=== PATIENT | female | born 1945 | race Caucasian/White ===

== ENCOUNTER 2018-09-10 00:21 | Outpatient (CLI) | payer OTHER, SELFPAY ==
--- NOTE | 2018-09-10 14:00 | MERGE_ITS ---
*[facility]* *[facility]* [address] [place] [address] Date of study: 09/10/2018 Transthoracic Echocardiography M-mode, complete 2D, complete spectral Doppler, and color Doppler *STUDY CONCLUSIONS* Summary: 1. Left ventricle: The cavity size was normal. There was mild focal basal hypertrophy of the septum. Systolic function was hyperdynamic. The estimated ejection fraction was 65-70%. There was no dynamic obstruction. Wall motion was normal; there were no regional wall motion abnormalities. Findings consistent with diastolic dysfunction. 2. Mitral valve: There was mild regurgitation. 3. Left atrium: The atrium was moderately to severely dilated. 4. Right ventricle: The cavity size was normal. Wall thickness was normal. Systolic function was normal. 5. Atrial septum: A patent foramen ovale cannot be excluded. 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 6. Pulmonary arteries: Pulmonary systolic pressure was increased, in the range of 35mm Hg to 40mm Hg. *PATIENT PRESENTATION* Height: 154.9cm ((61in) ) S/D Pressure: 154 / 74 Weight: 56.7kg ((124.7lb) ) BSA: 1.57m^2 Test start time: 02:15 PM. Test stop time: 03:00 PM. PERFORMING Unknown PERFORMING [facility] ORDERING Shara Jimenez REFERRING Shara Jimenez AQUACULTURE PROGRAM DIRECTOR Tere Cornejo RT (R)(CT), [facility] *PROCEDURE DATA* Procedure information: The patient was identified by two identifiers. This study was interpreted by [facility]. Pertinent images and digital data are archived for permanent storage and are available for subsequent review. No prior study was available for comparison. Study status: Routine. Transthoracic echocardiography. M-mode, complete 2D, complete spectral Doppler, and color Doppler. A Transthoracic Echocardiogram was performed. Scanning was performed from the parasternal, apical, subcostal, and suprasternal notch acoustic windows. Images were obtained using an [id number] cardiac ultrasound machine. Image quality was adequate. Study completion: The patient tolerated the procedure well. There were no complications. History: PMH: Heart murmur. Mitral regurgitation. *CARDIAC ANATOMY* Left ventricle: The cavity size was normal. There was mild focal basal hypertrophy of the septum. Systolic function was hyperdynamic. The estimated ejection fraction was 65-70%. There was no dynamic obstruction. Wall motion was normal; there were no regional wall motion abnormalities. Findings consistent with diastolic dysfunction. Aortic valve: Trileaflet; mildly thickened leaflets. Mobility was not restricted. Doppler: Transvalvular velocity was within the normal range. There was no stenosis. There was no significant regurgitation. VTI ratio of LVOT to aortic valve: 0.74. Valve area (VTI): 2.4cm^2. Indexed valve area (VTI): 1.5cm^2/m^2. Peak velocity ratio of LVOT to aortic valve: 0.8. Valve area (Vmax): 2.6cm^2. Indexed valve area (Vmax): 1.7cm^2/m^2. Mean velocity ratio of LVOT to aortic valve: 0.81. Valve area (Vmean): 2.7cm^2. Indexed valve area (Vmean): 1.7cm^2/m^2. Mean gradient (S): 6.2mm Hg. Peak gradient (S): 14.4mm Hg. Aorta: Aortic root: The aortic root was normal in size. Ascending aorta: The ascending aorta was normal in size. Mitral valve: Mildly thickened leaflets. Mobility was not restricted. Doppler: Transvalvular velocity was within the normal range. There was no evidence for stenosis. There was mild regurgitation. Valve area by pressure half-time: 5cm^2. Indexed valve area by pressure half-time: 3.2cm^2/m^2. Peak gradient (D): 3.2mm Hg. Left atrium: The atrium was moderately to severely dilated. Atrial septum: A patent foramen ovale cannot be excluded. 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 Right ventricle: The cavity size was normal. Wall thickness was normal. Systolic function was normal. Pulmonic valve: Structurally normal valve. Doppler: Transvalvular velocity was within the normal range. There was no evidence for stenosis. There was trivial regurgitation. Peak gradient (S): 3.5mm Hg. Tricuspid valve: Structurally normal valve. Doppler: Transvalvular velocity was within the normal range. There was no evidence for stenosis. There was no significant regurgitation. Pulmonary artery: Pulmonary systolic pressure was increased, in the range of 35mm Hg to 40mm Hg. Right atrium: The atrium was normal in size. Pericardium: There was no pericardial effusion. Systemic veins: Inferior vena cava: Well visualized. The vessel was patent and normal in size. The respirophasic diameter changes were in the normal range (greater than or equal to 50%). Baseline ECG: Normal sinus rhythm. Measurements Left ventricle Value Reference LV ID, ED, PLAX 4.9 cm 3.5 - 6.0 LV ID, ES, PLAX 3.3 cm 2.1 - 4.0 LV PW thickness, ED, PLAX 1.0 cm LV end-diastolic volume, 1-p A2C 65 ml LV ejection fraction, 1-p A2C 73 % LV end-diastolic volume, 1-p A4C 88 ml LV ejection fraction, 1-p A4C 63 % LV e', lateral 0.058 m/sec LV E/e', lateral 15 LV e', medial 0.064 m/sec LV E/e', medial 14 LV e', average 0.061 m/sec LV E/e', average 15 Ventricular septum Value Reference IVS thickness, ED, PLAX 1.0 cm LVOT Value Reference LVOT ID, A-P 2.1 cm LVOT area 3.3 cm^2 LVOT peak velocity, S 1.52 m/sec LVOT mean velocity, S 0.96 m/sec LVOT VTI, S 28.7 cm LVOT peak gradient, S 9.2 mm Hg LVOT mean gradient, S 4.3 mm Hg Stroke volume (SV), LVOT DP 95 ml Stroke index (SV/bsa), LVOT DP 60 ml/m^2 Aortic valve Value Reference Aortic valve peak velocity, S 1.9 m/sec Aortic valve mean velocity, S 1.18 m/sec Aortic valve VTI, S 39.0 cm Aortic mean gradient, S 6.2 mm Hg Aortic peak gradient, S 14.4 mm Hg VTI ratio, LVOT/AV 0.74 Aortic valve area, VTI 2.4 cm^2 Velocity ratio, peak, LVOT/AV 0.8 Aortic valve area, peak velocity 2.6 cm^2 Velocity ratio, mean, LVOT/AV 0.81 Aortic valve area, mean velocity 2.7 cm^2 Aortic valve area/bsa, mean velocity 1.7 cm^2/m^2 Aorta Value Reference Aortic root ID, ED 3.2 cm Ascending aorta ID, A-P, S 2.9 cm Left atrium Value Reference LA ID, A-P, ES 4.5 cm LA ID/bsa, A-P (H) 2.8 cm/m^2 <=2.2 LA area, ES, A4C 22.3 cm^2 8.8 - 23.4 LA area, ES, A2C 19 cm^2 LA volume/bsa, ES, 1-p A4C 52 ml/m^2 LA volume, ES, 2-p 59 ml LA volume/bsa, ES, 2-p 37 ml/m^2 LA/aortic root ratio 1.38 Mitral valve Value Reference Mitral E-wave peak velocity 0.9 m/sec Mitral A-wave peak velocity 1.27 m/sec Mitral deceleration time 152 ms 150 - 230 Mitral pressure half-time 44 ms Mitral peak gradient, D 3.2 mm Hg Mitral E/A ratio, peak 0.71 Mitral valve area, PHT, DP 5 cm^2 Pulmonary veins Value Reference Pulmonary vein peak velocity, S 1.03 m/sec Pulmonary vein peak velocity, D 0.6 m/sec Pulmonary vein velocity ratio, peak, 1.73 S/D Pulmonary vein A-wave reversal peak 0.47 m/sec velocity Tricuspid valve Value Reference Tricuspid regurg peak velocity 3 m/sec Tricuspid peak RV-RA gradient 36.2 mm Hg Right atrium Value Reference RA area, ES, A4C 11.2 cm^2 8.3 - 19.5 Pulmonic valve Value Reference Pulmonic peak gradient, S 3.5 mm Hg Legend: (L) and (H) evette values outside specified reference range. I have personally reviewed the images and have reviewed and edited the reported findings. Electronically signed by Abhijeet Alexander 09/10/2018 16:07
== END 2018-09-10 00:41 ==
PROVIDERS: PCP Nurse Practitioner; Visit Provider Nurse Practitioner
DX: I34.0 Nonrheumatic mitral (valve) insufficiency (principal); R01.1 Cardiac murmur, unspecified; I50.30 Unspecified diastolic (congestive) heart failure; I51.7 Cardiomegaly
CPT/HCPCS: 93306

== ENCOUNTER 2018-09-12 13:49 | Outpatient (REF) | payer OTHER, SELFPAY ==
[2018-09-12 18:51] LABS: ALT 32 U/L (12-78); AST 25 U/L (15-37); Albumin 3.9 g/dL (3.4-5.0); Alkaline Phosphatase 86 U/L (46-116); Anion Gap 9.3 mmol/L (3-11); BUN 20 mg/dL (7-18); Bilirubin, Total 0.3 mg/dL (0.2-1.0); CO2 27.7 mmol/L (21.0-32.0); Calcium 8.9 mg/dL (8.5-10.1); Chloride 102 mmol/L (98-107); Glucose 89 mg/dL (70-100); Potassium 4.2 mmol/L (3.5-5.1); Sodium 139 mmol/L (136-145); TSH (W/Ref FT4) 3.34 uIU/mL (0.358-3.74); Total Protein 7.2 g/dL (6.4-8.2)
== END 2018-09-12 14:09 ==
LOC: NCHCN 13:49
PROVIDERS: PCP Nurse Practitioner; Visit Provider Nurse Practitioner
DX: R00.2 Palpitations (principal); I34.0 Nonrheumatic mitral (valve) insufficiency; E03.9 Hypothyroidism, unspecified; E04.2 Nontoxic multinodular goiter
CPT/HCPCS: 80053; 84443

== ENCOUNTER 2018-09-25 10:51 | Outpatient (CLI) | payer OTHER, SELFPAY ==
--- NOTE | 2018-09-25 10:47 | DI.RAD_ITS ---
SYMPTOMS/DIAGNOSIS: RT KNEE PAIN RIGHT KNEE: Lateral tibiofemoral joint space narrowing, articular sclerosis and periarticular hypertrophic spurring and chondrocalcinosis are demonstrated. The findings consistent with severe DJD.
== END 2018-09-25 11:11 ==
PROVIDERS: PCP Nurse Practitioner; Visit Provider Physician Assistant
DX: M25.561 Pain in right knee (principal); M17.11 Unilateral primary osteoarthritis, right knee; G20 Parkinson's disease
CPT/HCPCS: 20610; 73562; 99204; 99215; J1040

== ENCOUNTER → 2018-10-23 09:31 | Outpatient (BNVA) | payer OTHER, SELFPAY | PROVIDERS: PCP Nurse Practitioner; Visit Provider Psychiatry & Neurology Neurology | DX: G20 Parkinson's disease (principal) | CPT/HCPCS: 99215 ==

== ENCOUNTER → 2018-11-25 08:10 | Outpatient (BNVA) | payer OTHER, SELFPAY | PROVIDERS: PCP Nurse Practitioner; Visit Provider Psychiatry & Neurology Neurology | DX: G20 Parkinson's disease (principal) | CPT/HCPCS: 99213 ==

== ENCOUNTER → 2018-11-25 10:59 | Outpatient (BNVA) | payer OTHER, SELFPAY | PROVIDERS: PCP Nurse Practitioner; Referring Provider Nurse Practitioner; Visit Provider Student in an Organized Health Care Education/Training Program | DX: M17.11 Unilateral primary osteoarthritis, right knee (principal); G20 Parkinson's disease | CPT/HCPCS: 99212; 99213 ==

== ENCOUNTER 2019-01-08 16:38 | Outpatient (CLI) | payer OTHER, MEDICARE, SELFPAY ==
--- NOTE | 2019-01-08 14:50 | DI.RAD_ITS ---
SYMPTOMS/DIAGNOSIS: LUMBAR BACK PAIN, M54.5 LUMBOSACRAL SPINE: Multiple compression fractures involving the mid and lower dorsal spine are noted with vertebroplasties at T6, T7, T11 and T12. The lumbar vertebrae appear intact. There is disc space narrowing at L1-2, L3-4 and L4-L5. A vacuum phenomenon is noted at L4-5 and there is a 7 mm anterolisthesis of L4 and L5 associated with degenerative facet joint changes and consistent with a pseudospondylolisthesis. As visualized, the pedicles, spinous and transverse processes appear intact. Allowing for overlying bowel gas and fecal material, the sacrum and sacroiliac joints appear intact. SUMMARY: Multiple old compression fractures involving the mid and lower dorsal spine with vertebroplasties at T6, and T7, and T11 and T12. There is evidence of degenerative disc disease and DJD involving the lumbar spine as described above. No lumbar fracture is apparent.
== END 2019-01-08 16:58 ==
PROVIDERS: PCP Nurse Practitioner; Visit Provider Family Medicine
DX: M54.5 Low back pain (principal); M51.36 Other intervertebral disc degeneration, lumbar region; M43.17 Spondylolisthesis, lumbosacral region; Z98.1 Arthrodesis status
CPT/HCPCS: 72110

== ENCOUNTER 2019-01-24 08:30 | Emergency (ER) | payer OTHER, SELFPAY ==
[2019-01-24 08:30] VITALS: BP 167/92; PULSE 77; RESP 18; TEMP 36.8; O2SAT 96
[2019-01-24] MEDS: oxyCODONE 5 MG TAB PO (08:44)
--- NOTE | 2019-01-24 08:55 | W.ED.GENAD ---
Discharge Plan Disposition Patient Disposition: HOME Condition: Stable Discharge Details Chief Complaint: Nk/Back Pain Clinical Impression: Lower back pain, Compression fracture Primary Care Provider: Shara Jimenez ED Provider: Manuel Tang Home Meds and New Rx's Prescriptions: New oxycodone 5 mg tablet 5 mg PO Q6H Qty: 12 RF: 0 No Action acetaminophen 500 mg capsule 1,000 mg PO Q8H RF: 0 multivitamin tablet 1 tab PO DAILY RF: 0 furosemide 20 mg tablet 40 mg PO DAILY RF: 0 ibuprofen 600 mg tablet 600 mg PO TID RF: 0 oxybutynin chloride 5 mg tablet 5 mg PO BID RF: 0 calcium carbonate-vitamin D3 [Calcium 600 with Vitamin D3] 600 mg(1,500mg) -400 unit capsule 1 cap PO .BLAKE RF: 0 levothyroxine 25 mcg capsule 25 mcg PO DAILY RF: 0 carbidopa-levodopa [Sinemet] 25-100 mg tablet 1 tab PO TID Qty: 270 RF: 3 celecoxib [Celebrex] 100 mg Capsule 100 mg PO BID RF: 0 Discharge Instructions Instructions: Lower Back Exercises (ED) Additional Instructions: You should follow up with your primary care provider and the spine specialists, you should be contacted with an appointment if you have severe worsening pain or new pain such as abdominal pain return to the emergency department Medical Decision Making 74 yo female with hx of parkinson's, hypothyroidism, chronic lower back pain with prior surgeries all over a year ago, comes in with continued lower back pain. she localizes it to the sacrum and denies any falls, no abd pain, no fevesr, no findings to suggest infectious etiology such as sea or osteo. Had lumbar spine films recently showing djd and old compression fx's. Has no saddle anesthesia on exam or focal neuro deficits so doubt cauda equina. No recent falls so doubt fx. No abdominal pain and normal distal pulses so doubt aaa or dissection. Will tx her pain and reassess. pt stable, son and daughter in law in room now and state she has had intermittent numbness of the upper legs. Has no numbness on exam now, but given this complaint will obtain MRI to eval for possible cord compression MRI per Dr. Araujo shows djd, does have old compression fx's at t11/t12 with some fragments in the spinal canal, and l4/l5 central stenosis. The patient would like to go home as she feels she is more comfortable there. I will discuss case with spine and call pt and her family after this is done. She will return if worsening Differential Diagnosis djd, lumbar stenosis HPI General Mode of arrival: EMS. Date/Time Provider Initiated Documentation: 01/24/19 08:31. Limitations to Documentation: no limitations. Information obtained by: patient. History of Present Illness 74 year old F presents to the emergency department with the chief complaint of back pain, described as severe, Quality is described as aching, and is localized to the back. Patient reports no radiation. Patient started experiencing this month(s) (3) and it has been constant. No relieving factors improve symptom(s), Other factors that worsen symptoms (sitting up) . Patient did receive the following treatments prior to arrival, none Related Data Home Medications Medication Instructions Recorded Confirmed acetaminophen 500 mg capsule 1,000 mg PO Q8H cap 08/26/18 01/24/19 calcium carbonate-vitamin D3 600 1 cap PO .BLAKE cap 08/26/18 01/24/19 mg (1,500 mg)-400 unit capsule furosemide 20 mg tablet 40 mg PO DAILY tab 08/26/18 01/24/19 ibuprofen 600 mg tablet 600 mg PO TID 08/26/18 01/24/19 levothyroxine 25 mcg capsule 25 mcg PO DAILY 08/26/18 01/24/19 multivitamin tablet 1 tab PO DAILY 08/26/18 01/24/19 oxybutynin chloride 5 mg tablet 5 mg PO BID 08/26/18 01/24/19 carbidopa 25 mg-levodopa 100 mg 1 tab PO TID #270 tab 11/25/18 01/24/19 tablet celecoxib [Celebrex] 100 mg PO BID 01/24/19 01/24/19 oxycodone 5 mg PO Q6H #12 tab 01/24/19 Previous Rx's Medication Instructions Recorded carbidopa 25 mg-levodopa 100 mg 1 tab PO TID #270 tab 11/25/18 tablet oxycodone 5 mg PO Q6H #12 tab 01/24/19 Allergies Allergy/AdvReac Type Severity Reaction Status Date / Time omeprazole Allergy Intermediate Verified 01/24/19 08:37 General Stated Complaint: Nk/Back Pain ALVINA: 3 Review of Systems Review of Systems All systems reviewed & are unremarkable except as noted in HPI and below Constitutional Denies chills and Denies fever(s) Cardiovascular Denies chest pain and Denies dyspnea Respiratory Denies cough and Denies dyspnea Gastrointestinal Denies abdominal pain, Denies nausea and Denies vomiting Musculoskeletal Denies joint swelling Integumentary/Breasts Denies rash [facility] Medical History Parkinson disease (Chronic) Arthritis (Acute) Carpal tunnel syndrome (Acute) Heart murmur (Acute) Incontinence (Acute) Intermediate coronary syndrome (Acute) Knee pain, right (Acute) Kyphosis (Acute) Multinodular thyroid (Acute) Palpitations (Acute) Scoliosis (Acute) Hypothyroidism (Chronic) Mitral valve regurgitation (Chronic) Osteoporosis (Chronic) Parkinsons disease (Resolved) Surgical History H/O oophorectomy (Acute) S/P appendectomy (Acute) S/P eye surgery (Acute) S/P lumbar spine operation (Acute) H/O carpal tunnel repair (Chronic) Family History Brother Parkinson disease Maternal Uncle Parkinson disease Paternal Cousin Parkinson disease Other Diabetes Stroke Social History Smoking/Tobacco Use Status: Former Tobacco Use Alcohol Intake: current Alcohol Intake frequency: holidays/special occasions only Substance use type: does not use Household members: none Do you feel safe at home: Yes Do you feel safe in your relationship?: Yes Exam Const General: no acute distress Orientation: alert [facility] Head: normal to inspection Ears: external ears normal General nose exam: external nose normal Mouth: moist mucous membranes Eyes General: appearance normal, both eyes and all related structures Neck Neck: normal visual inspection Resp Effort & Inspection: normal respiratory effort and able to speak in complete sentences Cardio Rate: regular rate GI Palpation: soft Back/Spine/Pelvis Back: no CVA tenderness Skin General skin exam: no rashes or lesions noted Neuro General: alert and oriented x3 Extrem General: normal to inspection Psych Mental Status: mental status grossly normal Course Vital Signs Temperature 36.8 C 01/24/19 08:30 Pulse 77 01/24/19 08:30 Respiratory Rate 18 01/24/19 08:30 Blood Pressure 167/92 H 01/24/19 08:30 Pulse Oximetry 96 01/24/19 08:30 Temperature 36.8 C 01/24/19 08:30 Pulse 77 01/24/19 08:30 Respiratory Rate 18 01/24/19 08:30 Respiratory Effort Non-Labored 01/24/19 08:30 Blood Pressure 167/92 H 01/24/19 08:30 Pulse Oximetry 96 01/24/19 08:30 Oxygen Delivery Method Room Air 01/24/19 08:30 Oxygen Flow Rate 0 01/24/19 08:30 Pain Level 8 01/24/19 08:39
--- NOTE | 2019-01-24 08:58 | ED.GENADUL_ITS ---
Discharge Plan Disposition Patient Disposition: HOME Condition: Stable Discharge Details Chief Complaint: Nk/Back Pain Clinical Impression: Lower back pain, Compression fracture Primary Care Provider: Shara Jimenez ED Provider: Manuel Tang Home Meds and New Rx's Prescriptions: New oxycodone 5 mg tablet 5 mg PO Q6H Qty: 12 RF: 0 No Action acetaminophen 500 mg capsule 1,000 mg PO Q8H RF: 0 multivitamin tablet 1 tab PO DAILY RF: 0 furosemide 20 mg tablet 40 mg PO DAILY RF: 0 ibuprofen 600 mg tablet 600 mg PO TID RF: 0 oxybutynin chloride 5 mg tablet 5 mg PO BID RF: 0 calcium carbonate-vitamin D3 [Calcium 600 with Vitamin D3] 600 mg(1,500mg) - 400 unit capsule 1 cap PO .BLAKE RF: 0 levothyroxine 25 mcg capsule 25 mcg PO DAILY RF: 0 carbidopa-levodopa [Sinemet] 25-100 mg tablet 1 tab PO TID Qty: 270 RF: 3 celecoxib [Celebrex] 100 mg Capsule 100 mg PO BID RF: 0 Discharge Instructions Instructions: Lower Back Exercises (ED) Additional Instructions: You should follow up with your primary care provider and the spine specialists, you should be contacted with an appointment if you have severe worsening pain or new pain such as abdominal pain return to the emergency department Medical Decision Making 74 yo female with hx of parkinson's, hypothyroidism, chronic lower back pain with prior surgeries all over a year ago, comes in with continued lower back pain. she localizes it to the sacrum and denies any falls, no abd pain, no fevesr, no findings to suggest infectious etiology such as sea or osteo. Had lumbar spine films recently showing djd and old compression fx's. Has no saddle anesthesia on exam or focal neuro deficits so doubt cauda equina. No recent falls so doubt fx. No abdominal pain and normal distal pulses so doubt aaa or dissection. Will tx her pain and reassess. pt stable, son and daughter in law in room now and state she has had intermittent numbness of the upper legs. Has no numbness on exam now, but given this complaint will obtain MRI to eval for possible cord compression MRI per Dr. Araujo shows djd, does have old compression fx's at t11/t12 with some fragments in the spinal canal, and l4/l5 central stenosis. The patient would like to go home as she feels she is more comfortable there. I will discuss case with spine and call pt and her family after this is done. She will return if worsening Differential Diagnosis djd, lumbar stenosis HPI General Mode of arrival: EMS . Date/Time Provider Initiated Documentation: 01/24/19 08:31 . Limitations to Documentation: no limitations . Information obtained by: patient . History of Present Illness 74 year old F presents to the emergency department with the chief complaint of back pain, described as severe, Quality is described as aching, and is localized to the back. Patient reports no radiation. Patient started experiencing this month(s) (3) and it has been constant. No relieving factors improve symptom(s), Other factors that worsen symptoms (sitting up) . Patient did receive the following treatments prior to arrival, none Related Data Home Medications Medication Instructions Recorded Confirmed acetaminophen 500 mg capsule 1,000 mg PO Q8H cap 08/26/18 01/24/19 calcium carbonate-vitamin D3 600 1 cap PO .BLAKE cap 08/26/18 01/24/19 mg (1,500 mg)-400 unit capsule furosemide 20 mg tablet 40 mg PO DAILY tab 08/26/18 01/24/19 ibuprofen 600 mg tablet 600 mg PO TID 08/26/18 01/24/19 levothyroxine 25 mcg capsule 25 mcg PO DAILY 08/26/18 01/24/19 multivitamin tablet 1 tab PO DAILY 08/26/18 01/24/19 oxybutynin chloride 5 mg tablet 5 mg PO BID 08/26/18 01/24/19 carbidopa 25 mg-levodopa 100 mg 1 tab PO TID #270 tab 11/25/18 01/24/19 tablet celecoxib [Celebrex] 100 mg PO BID 01/24/19 01/24/19 oxycodone 5 mg PO Q6H #12 tab 01/24/19 Previous Rx's Medication Instructions Recorded carbidopa 25 mg-levodopa 100 mg 1 tab PO TID #270 tab 11/25/18 tablet oxycodone 5 mg PO Q6H #12 tab 01/24/19 Allergies Allergy/AdvReac Type Severity Reaction Status Date / Time omeprazole Allergy Intermediate Verified 01/24/19 08:37 General Stated Complaint: Nk/Back Pain ALVINA: 3 Review of Systems Review of Systems All systems reviewed & are unremarkable except as noted in HPI and below Constitutional Denies chills and Denies fever(s) Cardiovascular Denies chest pain and Denies dyspnea Respiratory Denies cough and Denies dyspnea Gastrointestinal Denies abdominal pain, Denies nausea and Denies vomiting Musculoskeletal Denies joint swelling Integumentary/Breasts Denies rash [facility] Medical History Parkinson disease (Chronic) Arthritis (Acute) Carpal tunnel syndrome (Acute) Heart murmur (Acute) Incontinence (Acute) Intermediate coronary syndrome (Acute) Knee pain, right (Acute) Kyphosis (Acute) Multinodular thyroid (Acute) Palpitations (Acute) Scoliosis (Acute) Hypothyroidism (Chronic) Mitral valve regurgitation (Chronic) Osteoporosis (Chronic) Parkinsons disease (Resolved) Surgical History H/O oophorectomy (Acute) S/P appendectomy (Acute) S/P eye surgery (Acute) S/P lumbar spine operation (Acute) H/O carpal tunnel repair (Chronic) Family History Brother Parkinson disease Maternal Uncle Parkinson disease Paternal Cousin Parkinson disease Other Diabetes Stroke Social History Smoking/Tobacco Use Status: Former Tobacco Use Alcohol Intake: current Alcohol Intake frequency: holidays/special occasions only Substance use type: does not use Household members: none Do you feel safe at home: Yes Do you feel safe in your relationship?: Yes Exam Const General: no acute distress Orientation: alert [facility] Head: normal to inspection Ears: external ears normal General nose exam: external nose normal Mouth: moist mucous membranes Eyes General: appearance normal, both eyes and all related structures Neck Neck: normal visual inspection Resp Effort & Inspection: normal respiratory effort and able to speak in complete sentences Cardio Rate: regular rate GI Palpation: soft Back/Spine/Pelvis Back: no CVA tenderness Skin General skin exam: no rashes or lesions noted Neuro General: alert and oriented x3 Extrem General: normal to inspection Psych Mental Status: mental status grossly normal Course Vital Signs Temperature 36.8 C 01/24/19 08:30 Pulse 77 01/24/19 08:30 Respiratory Rate 18 01/24/19 08:30 Blood Pressure 167/92 H 01/24/19 08:30 Pulse Oximetry 96 01/24/19 08:30 Temperature 36.8 C 01/24/19 08:30 Pulse 77 01/24/19 08:30 Respiratory Rate 18 01/24/19 08:30 Respiratory Effort Non-Labored 01/24/19 08:30 Blood Pressure 167/92 H 01/24/19 08:30 Pulse Oximetry 96 01/24/19 08:30 Oxygen Delivery Method Room Air 01/24/19 08:30 Oxygen Flow Rate 0 01/24/19 08:30 Pain Level 8 01/24/19 08:39
[2019-01-24 09:45] LABS: Bilirubin Negative (Negative); Blood Negative (Negative); Clarity Clear; Glucose Negative (Negative); Ketones Negative (Negative); Leukocyte Esterase Negative (Negative); Nitrite Negative (Negative); Urobilinogen 0.2 EU/dL (Up TO 0.2); pH 7.5 (5-8)
--- NOTE | 2019-01-24 12:12 | DI.MRI_ITS ---
SYMPTOMS/DIAGNOSIS: LOW BACK PAIN, NUMBNESS LUMBOSACRAL SPINE MRI: MRI examination of the lumbosacral spine was performed according to the usual protocol. There is an exaggerated lumbar lordosis. There are prominent hypertrophic degenerative changes most marked at L 5 - S 1. There is a mild anterior pseudospondylolisthesis of L 4 on L 5. T 12 vertebral body appears collapsed and deforms the spinal canal anteriorly without discrete compression of the conus. Prominence of superior endplate of T 11 also noted posteriorly and narrows AP diameter of the canal at this level again without significant compression of the conus. At L 5 - S 1 there is prominent disc bulge. No disc herniation or central canal spinal stenosis. At L 4 - 5 there is a moderate to severe central canal spinal stenosis secondary to disc bulge and facet hypertrophy. No significant findings at L 3 - 4. No significant findings at L 1 - 2 or L 2 - 3. No neural foraminal narrowing identified at the levels examined. CONCLUSION: 1. T 12 and T 11 compression fractures with significant deformity of the anterior contour of the spinal canal at these levels but without definite compression of the conus. Impingement of conus may be present at either or both of these levels. 2. Moderate to severe central canal spinal stenosis at L 4 - 5.
[2019-01-24 13:44] VITALS: BP 167/92; PULSE 77; RESP 18; TEMP 36.8; O2SAT 96
--- NOTE | 2019-01-24 16:19 | PDOC.ERCMPRO ---
Care Management Progress Note ROSE met with Christiana and her son to provide patient education and Dr. Tang to review discharge planning needs. Per discussion, recommended Christiana return home with RN/PT/OT/PRESSURE TEST OPERATOR. ROSE supported MD in completing forms and documentation and faxed to [facility]; speaking via phone with Jessica to inform of referral.
--- NOTE | 2019-01-24 16:26 | CMPROGNOTE_ITS ---
Care Management Progress Note ROSE met with Christiana and her son to provide patient education and Dr. Tang to review discharge planning needs. Per discussion, recommended Christiana return home with RN/PT/OT/[employer]. ROSE supported MD in completing forms and documentation and faxed to [facility]; speaking via phone with Jessica to inform of referral.
--- NOTE | 2019-01-26 07:35 | NUR.NOTE ---
Nursing Note: Referral faxed to [facility] for follow up. Silvina Kee.
== END 2019-01-24 13:55 | disposition home or self-care (01) ==
PROVIDERS: Emergency Provider Emergency Medicine; PCP Nurse Practitioner
DX: M54.5 Low back pain (principal); R20.2 Paresthesia of skin; G35 Multiple sclerosis; M48.061 Spinal stenosis, lumbar region without neurogenic claudication
CPT/HCPCS: 99284; 72148; 81003

== ENCOUNTER → 2019-02-20 11:27 | Outpatient (BNVA) | payer OTHER, SELFPAY | PROVIDERS: PCP Nurse Practitioner; Visit Provider Psychiatry & Neurology Neurology | DX: G20 Parkinson's disease (principal); R42 Dizziness and giddiness; R11.0 Nausea | CPT/HCPCS: 99213; 99214 ==

== ENCOUNTER 2019-03-27 00:45 | Outpatient (CLI) | payer OTHER, SELFPAY ==
--- NOTE | 2019-03-27 13:00 | DI.US_ITS ---
SYMPTOMS/DIAGNOSIS: VAGINAL SPOTTING, N93.9 PELVIC ULTRASOUND: A transabdominal and transvaginal examination was carried out. The uterus measures 6.1 cm in length, 2.3 cm in height and 3.9 cm in width with an endometrial stripe thickness of 1.3 mm. The right ovary was not seen. The left ovary measures 1.9 x 1 x 0.9 cm. There is no evidence of fluid in the cul-de-sac. The right kidney measures 9.7 cm, the left kidney 9.4 cm. An anterior cortical 2 x 1.9 x 1.8 cm left renal cyst is identified. SUMMARY: The examination is unremarkable with note made of nonvisualization of the right ovary.
== END 2019-03-27 01:05 ==
PROVIDERS: PCP Nurse Practitioner; Visit Provider Nurse Practitioner
DX: N93.9 Abnormal uterine and vaginal bleeding, unspecified (principal)
CPT/HCPCS: 76830; 76856

== ENCOUNTER → 2019-04-21 11:12 | Outpatient (BNVA) | payer OTHER, SELFPAY | PROVIDERS: PCP Nurse Practitioner; Visit Provider Psychiatry & Neurology Neurology | DX: G20 Parkinson's disease (principal); M41.9 Scoliosis, unspecified | CPT/HCPCS: 99214 ==

== ENCOUNTER → 2019-06-05 10:04 | Outpatient (BNVA) | payer OTHER, SELFPAY | PROVIDERS: PCP Nurse Practitioner; Visit Provider Psychiatry & Neurology Neurology | DX: G20 Parkinson's disease (principal); M41.9 Scoliosis, unspecified | CPT/HCPCS: 99214 ==

== ENCOUNTER 2019-06-18 13:15 | Outpatient (REF) | payer OTHER, SELFPAY ==
[2019-06-18 15:15] LABS: Creatinine,Urine 60.41 mg/dL
[2019-06-18 15:18] LABS: Creatinine,24hr Ur 0.79 g/24hr (0.60-1.80); Total Volume 1300 ml
[2019-06-19 08:27] LABS: Calcium Urine 10.3 mg/dl
== END 2019-06-18 13:35 ==
LOC: LBN 13:15
PROVIDERS: PCP Nurse Practitioner; Visit Provider Internal Medicine
DX: M81.0 Age-related osteoporosis without current pathological fracture (principal)
CPT/HCPCS: 82340; 82570

== ENCOUNTER → 2019-07-24 10:42 | Outpatient (BNVA) | payer OTHER, SELFPAY | PROVIDERS: PCP Nurse Practitioner; Referring Provider Nurse Practitioner; Visit Provider Psychiatry & Neurology Neurology | DX: G20 Parkinson's disease (principal); G25.81 Restless legs syndrome | CPT/HCPCS: 99214 ==

== ENCOUNTER → 2019-10-21 12:46 | Outpatient (BNVA) | payer OTHER, SELFPAY | PROVIDERS: PCP Nurse Practitioner; Referring Provider Nurse Practitioner; Visit Provider Psychiatry & Neurology Neurology | DX: G20 Parkinson's disease (principal); G25.81 Restless legs syndrome; M41.9 Scoliosis, unspecified; R20.9 Unspecified disturbances of skin sensation | CPT/HCPCS: 99214 ==

== ENCOUNTER → 2020-01-15 13:19 | Outpatient (BNVA) | payer OTHER, SELFPAY | PROVIDERS: PCP Nurse Practitioner; Referring Provider Nurse Practitioner; Visit Provider Psychiatry & Neurology Neurology | DX: G20 Parkinson's disease (principal); M41.9 Scoliosis, unspecified; G25.81 Restless legs syndrome; R13.10 Dysphagia, unspecified | CPT/HCPCS: 99214 ==

== ENCOUNTER → 2020-04-26 09:49 | Outpatient (BNVA) | payer OTHER, SELFPAY | PROVIDERS: PCP Nurse Practitioner; Referring Provider Nurse Practitioner; Visit Provider Psychiatry & Neurology Neurology | DX: G20 Parkinson's disease (principal); M41.9 Scoliosis, unspecified; G25.81 Restless legs syndrome; R13.10 Dysphagia, unspecified; F43.23 Adjustment disorder with mixed anxiety and depressed mood | CPT/HCPCS: 99214 ==

== ENCOUNTER 2020-05-07 02:20 | Outpatient (CLI) | payer OTHER, SELFPAY ==
[2020-05-07 13:16] LABS: HCT 38.1 % (36.0-46.0); HGB 12.5 g/dL (11.2-15.7); MCH 28.4 pg (27.0-33.0); MCHC 32.8 % (32.0-36.0); MCV 86.6 fL (80-95); MPV 9.5 fL (8.0-11.0); Platelet Count 368 10^3/uL (130-400); RDW 12.6 % (11.7-14.6); WBC 10.72 10^3/uL (4.4-10.8)
[2020-05-07 14:57] LABS: ALT 12 U/L (14-59); AST 19 U/L (15-37); Albumin 4.1 g/dL (3.4-5.0); Alkaline Phosphatase 85 U/L (46-116); BUN 12 mg/dL (7-18); Bilirubin, Total 0.4 mg/dL (0.2-1.0); CREATININE 0.75 mg/dL (0.55-1.02); Chloride 101 mmol/L (98-107); Glucose 106 mg/dL (74-106); Potassium 3.8 mmol/L (3.5-5.1); Sodium 138 mmol/L (136-145); TSH 2.06 uIU/mL (0.36-3.74); Total Protein 7.3 g/dL (6.4-8.2)
[2020-05-10 05:21] LABS: Vitamin D 25 Total 32.5 ng/ml (30-100)
== END 2020-05-07 02:40 ==
PROVIDERS: PCP Nurse Practitioner; Visit Provider Internal Medicine
DX: M81.0 Age-related osteoporosis without current pathological fracture (principal); G20 Parkinson's disease; E03.8 Other specified hypothyroidism; E06.3 Autoimmune thyroiditis
CPT/HCPCS: 36415; 80053; 82306; 85027; 84443

== ENCOUNTER 2020-05-07 02:49 | Outpatient (CLI) | payer OTHER, SELFPAY ==
--- NOTE | 2020-05-07 13:39 | DI.MAMMO_ITS ---
EXAM: MG MAMMO SCREENING 60 MIN DUR CLINICAL HISTORY: SCREENING, Z12.39 TECHNIQUE: Bilateral full field digital CC and MLO mammographic images were obtained with 3D tomosyn thesis and utilizing computer aided detection (CAD). COMPARISON: None. FINDINGS: Masses/Architectural Distortion: None seen. Microcalcifications: No suspicious pleomorphic-type are seen. Skin Thickening/Nipple Retraction: None. IMPRESSION: 1. No significant interval change with no specific features of malignancy noted. 2. Unless there is more urgent need, screening mammography is recommended, as per [employer] guidelines. BI-RADS Category 1 - Negative Breast Density - Category D - Extremely dense The mammogram demonstrates the patient's breast tissue is dense. Dense breast tissue is very common a nd is not abnormal but dense breast tissue can make it harder to find cancer on a mammogram. Also, de nse breast tissue may increase their breast cancer risk. This information about the result of the [facility] mogram report was provided to the patient to raise their awareness. Use this report when you speak wi th the patient about their risks for breast cancer, which includes their family history. At that time , you may recommend for more screening tests (Ultrasound or MRI) as they might be useful based on the ir risk. A negative radiographic report should not delay biopsy if a dominant or clinically suspicious mass is present. Up to ten percent of cancers are not identified on mammography. A negative report may reinforce clinical impression. Adenosis and dense breasts may obscure an underlying neoplasm. False positive reports average 6 to 10%. Patient will receive a letter notifying them of these results.
== END 2020-05-07 03:09 ==
PROVIDERS: PCP Nurse Practitioner; Visit Provider Nurse Practitioner
DX: Z12.31 Encounter for screening mammogram for malignant neoplasm of breast (principal); R92.2 Inconclusive mammogram
CPT/HCPCS: 77063; 77067

== ENCOUNTER → 2020-06-29 09:45 | Outpatient (BNVA) | payer OTHER, SELFPAY | PROVIDERS: PCP Nurse Practitioner; Referring Provider Nurse Practitioner; Visit Provider Psychiatry & Neurology Neurology | DX: G20 Parkinson's disease (principal); M41.9 Scoliosis, unspecified; G25.81 Restless legs syndrome; R13.10 Dysphagia, unspecified; F43.23 Adjustment disorder with mixed anxiety and depressed mood; R41.3 Other amnesia; N32.81 Overactive bladder | CPT/HCPCS: 99214 ==

== ENCOUNTER 2020-08-04 14:38 | Outpatient (REF) | payer OTHER, SELFPAY ==
[2020-08-08 17:17] LABS: Patient Race White; SARS-CoV-2 RNA Undetected (Undetected); SARS-CoV-2 Specimen Source Nasal
== END 2020-08-04 14:58 ==
LOC: NCHCN 14:38
PROVIDERS: PCP Nurse Practitioner; Visit Provider Nurse Practitioner Family
DX: Z11.59 Encounter for screening for other viral diseases (principal)
CPT/HCPCS: U0003

== ENCOUNTER → 2020-08-30 10:49 | Outpatient (BNVA) | payer OTHER, SELFPAY | PROVIDERS: PCP Nurse Practitioner; Referring Provider Nurse Practitioner; Visit Provider Psychiatry & Neurology Neurology | DX: G20 Parkinson's disease (principal); M41.9 Scoliosis, unspecified; G25.81 Restless legs syndrome; R13.10 Dysphagia, unspecified; F43.23 Adjustment disorder with mixed anxiety and depressed mood; R41.3 Other amnesia; N32.81 Overactive bladder | CPT/HCPCS: 99213; 99442 ==

== ENCOUNTER 2020-08-31 13:58 | Inpatient (IN) | payer OTHER, SELFPAY ==
[2020-08-31] VITALS (13 sets, daily range): BP systolic 107–179; BP diastolic 61–82; PULSE 82–101; RESP 16–20; TEMP 36.7–37.5; O2SAT 93–96
--- NOTE | 2020-08-31 14:15 | DI.RAD_ITS ---
EXAM: XR HIP LT COMPLETE AP PELVIS INDICATION: fall/pain. COMPARISON: CR XR lumbar spine complete from 01/08/2019 US US PELVIS TRANSVAGINAL from 03/27/2019 CR XR CHEST 1V IN DI DEPT from 08/31/2020 TECHNIQUE: 2D digital imaging was performed. FINDINGS: There is an intertrochanteric fracture of the left femur. There is some displacement as well as varu s angulation. There are asrc-ar-kghejmvy degenerative changes of both hips. High-density material i s noted in the upper sacrum. IMPRESSION: Intertrochanteric fracture of the left femur. DATA REPOSITORY: RADIATION DOSE DELIVERED:
--- NOTE | 2020-08-31 14:15 | DI.CT_ITS ---
EXAM: CT HEAD WO CLINICAL HISTORY: fall, hit head, distracting injury. TECHNIQUE: Imaging Protocol: Axial computed tomography images with coronal and sagittal reformatted images were created and reviewed COMPARISON: No exams were available for comparison FINDINGS: Ventricles and Extra axial spaces: Normal in size and morphology for the patient's age. Hemorrhage: None. Cerebral parenchyma: Normal. Midline shift: None. Brainstem/Cerebellum: Normal. Calvarium: Normal. Visualized Paranasal sinuses/Mastoids: Clear. Soft Tissues: Unremarkable. IMPRESSION: No acute intracranial process. RADIATION DOSE DELIVERED: 747.53mGy.cm Total DLP DATA REPOSITORY: All CT scans at this facility are submitted to the National Radiology Data Registry (NRDR) Dose Index Registry (DIR) with the [employer] ([employer]). RADIATION OPTIMIZATION: All CT scans at this facility use at least one of these dose optimization te chniques: automated exposure control; mA and/or kV adjustment per patient size (includes targeted exa ms where dose is matched to clinical indication); or iterative reconstruction.
--- NOTE | 2020-08-31 14:15 | DI.RAD_ITS ---
EXAM: XR CHEST 1V IN DI DEPT CLINICAL HISTORY: pre op TECHNIQUE: 2D digital imaging was performed. COMPARISON: CR XR lumbar spine complete from 01/08/2019 FINDINGS: LUNGS: Suboptimal pulmonary inflation. Superimposed skin folds. Mild fibrotic changes. No focal in filtrate. No pleural abnormality, infiltrate or pulmonary edema is seen. HEART: Normal size for projection.. MEDIASTINUM: Tortuous aorta. BONES: High-density material in the mid and lower thoracic spine related to previous vertebroplasty. IMPRESSION: No acute pulmonary findings. DATA REPOSITORY: RADIATION DOSE DELIVERED:
[2020-08-31 14:34] LABS: Abs Immature Grans 0.07 10^3/uL (0.0-0.06); Absolute Lymphocyte Count 1.47 10^3/uL (1.2-3.4); Absolute Monocyte Count 0.97 10^3/uL (0.1-0.8); Absolute Neutrophil Count 10.96 10^3/uL (1.2-6.7); Basophils % 0.4; Eosinophils % 0.7; HCT 40.4 % (36.0-46.0); HGB 13.4 g/dL (11.2-15.7); Immature Grans % 0.5; Lymphocytes % 10.8; MCH 28.9 pg (27.0-33.0); MCHC 33.2 % (32.0-36.0); MCV 87.1 fL (80-95); MPV 9.9 fL (8.0-11.0); Monocytes % 7.1; Neutrophils % 80.5; Nucleated RBC 0 %; Platelet Count 327 10^3/uL (130-400); RBC 4.64 10^6/uL (3.93-5.22); RDW 12.7 % (11.7-14.6); RDW-SD 40.6 fL; WBC 13.62 10^3/uL (4.4-10.8)
[2020-08-31 14:37] LABS: Absolute Basophil Count 0.05 10^3/uL (0.0-0.2)
--- NOTE | 2020-08-31 14:41 | ED.GENADUL_ITS ---
Discharge Plan Disposition Patient Disposition: [facility] INPATIENT Condition: Stable Discharge Details Clinical Impression: Fracture of hip, left, closed Admit Date/Time: 08/31/20 16:15 Admit Provider: Sidney Felix Attending Provider: Sidney Felix Primary Care Provider: Shara Jimenez ED Provider: Laura Meza Discharge Data Discharge Date/Time-TO BE ENTERED AT DEPARTURE: 08/31/20 17:24 Medical Decision Making <MICHI Reza - Last Filed: 08/31/20 16:09> 75-year-old female presenting with left hip pain after twisting and falling. She has been given 100 of fentanyl by EMS. She also struck her head but denies any LOC, headache or neck pain. Clinically she appears uncomfortable but no acute distress and nontoxic. Evaluation concerning for fracture of the hip, pelvis, dislocation, etc. Will obtain IV access, give IV fluid, IV morphine, obtain preoperative laboratory values, left hip x-ray with view of pelvis, head CT and chest x-ray. Patient agreeable to this plan. Patient reports some relief with the morphine, will obtain x-ray and if there is a fracture will call anesthesia to see if they can perform a block. The laboratory values reveal a white blood cell count of 13.62, this very well could be stress-induced and not infectious. Denies any infectious symptoms. No evidence of anemia, platelet count 327. Potassium 3.3 creatinine 0.69 with a GFR greater than T. Glucose 101, urinalysis without evidence of infection. Head CT per radiology negative Chest x-ray per radiology negative Left hip and pelvis x-ray reveals an intertrochanteric fracture of the left femur I was able to speak with the patient's son, Kareem. He is aware of the fracture and need for admission. I also discussed the findings with the patient. Case discussed with Dr. Arambula, he recommends a medical admission and he will perform surgery tomorrow. Does request a full-length femur x-ray. X-ray ordered. Call placed to our hospitalist team. Awaiting callback from hospitalist team. Will sign care out to MICHI Meza Medical Records Medical records reviewed: Yes I reviewed the patient's medical records. Lab Data Lab results reviewed: Yes I reviewed the patient's lab results. Lab results narrative: Laboratory Tests Range/Units 08/31/20 08/31/20 08/31/20 14:22 14:22 14:40 WBC (4.4-10.8) 10^3/uL 13.62 H RBC (3.93-5.22) 10^6/uL 4.64 Hgb (11.2-15.7) g/dL 13.4 Hct (36.0-46.0) % 40.4 MCV (80-95) fL 87.1 MCH (27.0-33.0) pg 28.9 MCHC (32.0-36.0) % 33.2 RDW (11.7-14.6) % 12.7 Plt Count (130-400) 10^3/uL 327 MPV (8.0-11.0) fL 9.9 Immature Gran % 0.5 Neutrophils % 80.5 Lymphocytes % 10.8 Monocytes % 7.1 Eosinophils % 0.7 Basophils % 0.4 Nucleated RBC % % 0 Absolute Neutrophils (1.2-6.7) 10^3/uL 10.96 H Absolute Lymphocytes (1.2-3.4) 10^3/uL 1.47 Absolute Monocytes (0.1-0.8) 10^3/uL 0.97 H Absolute Eosinophils (0.0-0.7) 10^3/uL 0.10 Absolute Basophils (0.0-0.2) 10^3/uL 0.05 Sodium (136-145) mmol/L 137 Potassium (3.5-5.1) mmol/L 3.3 L Chloride (98-107) mmol/L 101 Carbon Dioxide (21.0-32.0) mmol/L 26.9 Anion Gap (3-11) mmol/L 9.1 BUN (7-18) mg/dL 12 Creatinine (0.55-1.02) mg/dL 0.69 Estimated GFR/1.73 m2 (mL/min/1.73m2) >= 60.00 Glucose (74-106) mg/dL 101 Calcium (8.5-10.1) mg/dL 9.4 Total Bilirubin (0.2-1.0) mg/dL 0.7 AST (15-37) U/L 29 ALT (14-59) U/L < 6 L Alkaline Phosphatase (46-116) U/L 81 Total Protein (6.4-8.2) g/dL 8.1 Albumin (3.4-5.0) g/dL 4.4 Urine Color (Yellow) Yellow Urine Clarity (Clear) Sl cloudy Urine pH (5-8) 8.5 H Ur Specific [place] (1.005-1.025) 1.020 Urine Protein (Negative) mg/dL Negative Urine Ketones (Negative) mg/dL Trace H Urine Blood (Negative) Negative Urine Nitrite (Negative) Negative Urine Bilirubin (Negative) Negative Urine Urobilinogen (Up TO 0.2) EU/dL 0.2 Ur Leukocyte Esterase (Negative) Negative Urine Glucose (Negative) mg/dL Negative <MICHI Harrington - Last Filed: 08/31/20 21:56> Care transition myself from John Curry PA-C with consultation with hospitalist pending. Please see his note regarding presentation and history. Consulted with Dr. Felix regarding admission. He agrees to admission plan for patient to have surgical correction of her hip fracture tomorrow. Spoke with anesthesia regarding block if the patient's pain is starting to increase once again. They are here to evaluate and will discuss potential block with patient. HPI <MICHI Reza - Last Filed: 08/31/20 16:09> General Mode of arrival: EMS . Date/Time Provider Initiated Documentation: 08/31/20 14:16 . Limitations to Documentation: no limitations . Information obtained by: patient and EMS . HPI Narrative: This is a 75-year-old female with past medical history of osteoarthritis, Parkinson's disease, restless leg syndrome, anxiety, depression, short-term memory loss, overactive bladder, presenting via EMS for left hip injury. She states just prior to arrival she was taking off her jacket and hanging it up, twisting, feeling pain in her left hip, subsequently falling to the ground. She states that upon the fall she did hit her head but denies LOC or headache. She denies recent illness or trauma. Her only complaint now is that of left hip pain moderate in nature worse with movement. She was given a total of 100 of fentanyl by EMS prior to presentation here to the ER. Patient states that she typically ambulates on her own but in the morning when she first ambulates she does sometimes use a walker just to steady herself. Denies visual changes, neck pain, fever, chest pain, shortness of breath, back pain abdominal pain, nausea, vomiting, change in bowel or bladder function, numbness, tingling, weakness. Related Data Home Medications Medication Instructions Recorded Confirmed furosemide 20 mg tablet 40 mg PO DAILY tab 08/26/18 08/31/20 levothyroxine 25 mcg capsule 25 mcg PO DAILY 08/26/18 08/31/20 mirtazapine 7.5 mg tablet 7.5 mg PO QHS #30 tab 06/05/19 08/31/20 carbidopa 25 mg-levodopa 100 mg 2 tab PO TID #540 tab 12/30/19 08/31/20 tablet Saccharomyces boulardii 250 mg 250 mg PO DAILY cap 04/26/20 08/31/20 capsule cholecalciferol (vitamin D3) 25 25 mcg PO TID cap 06/29/20 08/31/20 mcg (1,000 unit) capsule calcium-vitamin D3-vitamin K 1 tab PO DAILY 08/31/20 08/31/20 [Calcium Soft Chew] glucose 1 tab PO DAILY 08/31/20 08/31/20 melatonin 3 mg PO HS 08/31/20 08/31/20 mirabegron [Myrbetriq] 25 mg PO DAILY 08/31/20 08/31/20 multivit with min-folic acid 1 tab PO DAILY 08/31/20 08/31/20 [Centrum MultiGummies] peg 400-propylene glycol (PF) drp 08/31/20 [Systane (PF)] teriparatide [Forteo] 20 mcg SUBCUT DAILY 08/31/20 08/31/20 Previous Rx's Medication Instructions Recorded mirtazapine 7.5 mg tablet 7.5 mg PO QHS #30 tab 06/05/19 carbidopa 25 mg-levodopa 100 mg 2 tab PO TID #540 tab 12/30/19 tablet Allergies Allergy/AdvReac Type Severity Reaction Status Date / Time omeprazole Allergy Intermediate Verified 08/31/20 14:06 General Stated Complaint: Orthopedic ALVINA: 2 Review of Systems <MICHI Reza - Last Filed: 08/31/20 16:09> Constitutional Constitutional: Denies fatigue, Denies fever(s), Denies headache(s) and Denies weakness Eyes Eyes: Denies change in vision ENT Ears, Nose, Mouth, and Throat: Denies headache(s) and Denies neck pain Cardiovascular Cardiovascular: Denies chest pain and Denies dyspnea Respiratory Respiratory: Denies cough and Denies dyspnea Gastrointestinal Gastrointestinal: Denies abdominal pain, Denies nausea and Denies vomiting Genitourinary Genitourinary: Denies difficulty voiding Musculoskeletal Musculoskeletal: Denies back pain, Reports arthralgias, Denies neck pain, Denies numbness and Denies tingling Integumentary/Breasts Skin/Breast: Denies rash Neurologic Neurologic: Denies headache(s), Denies numbness, Denies tingling and Denies weakness Endocrine Endocrine: Denies fatigue PFSH <MICHI Reza - Last Filed: 08/31/20 16:09> Medical History (Updated 08/31/20 @ 16:28 by Vania Hsu NP) Adjustment disorder with mixed anxiety and depressed mood Arthritis Carpal tunnel syndrome Heart murmur Hypothyroidism Incontinence Intermediate coronary syndrome Knee pain, right Kyphosis Macular hole Mitral valve regurgitation Multinodular thyroid Osteoporosis Overactive bladder Palpitations Parkinsons disease Physical deconditioning Scoliosis Seborrheic keratoses Short-term memory loss Tinea corporis Tinea pedis Surgical History H/O carpal tunnel repair H/O oophorectomy S/P appendectomy S/P eye surgery ambliopia S/P lumbar spine operation Family History Brother Parkinson disease Maternal Uncle Parkinson disease Paternal Cousin Parkinson disease Other Diabetes Stroke Social History Smoking/Tobacco Use Status: Former Tobacco Use Smoking risk assessment performed?: Yes Alcohol Intake: current Alcohol Intake frequency: holidays/special occasions only Drug use: Never Substance use type: does not use Household members: none Seatbelt use: always Do you feel safe at home: Yes Do you feel safe in your relationship?: Yes Exam <MICHI Reza - Last Filed: 08/31/20 16:09> Const General: cooperative, healthy appearing, comfortable and no acute distress Orientation: alert, awake, oriented to person, oriented to place and confused (Of exact date) [facility] Head: normal to inspection, normocephalic and atraumatic Face and sinus: normal facial exam Mouth: moist mucous membranes Eyes General: appearance normal, both eyes and all related structures Alignment and Position: alignment normal Periorbital: periorbital findings normal Eyelids: eyelids normal Conjunctivae: conjunctivae normal Sclera: sclerae normal Cornea: corneas normal Pupils: PERRL EOM: EOM intact bilaterally Direct ophthalmoscopy: normal light reflex Neck Neck: normal visual inspection, full ROM, trachea midline, supple and nontender Resp Effort & Inspection: normal respiratory effort and able to speak in complete sentences Auscultation: clear to auscultation bilaterally Cardio Rate: regular rate Rhythm: regular rhythm GI Palpation: soft and nontender Back/Spine/Pelvis Back: No back tenderness Skin General skin exam: no rashes or lesions noted Neuro General: patient alert, patient awake, moves all extremities and no focal motor deficits Cognition: normal cognition Motor: muscle tone normal throughout Sensory Exam: no sensory deficits noted Extrem General: pedal edema on the right 1+ (Baseline per patient) Right upper extremity: normal to inspection, full ROM and normal capillary refill Left upper extremity: normal to inspection, full ROM and normal capillary refill Right lower extremity: full ROM and normal capillary refill Left lower extremity: normal capillary refill and hip/thigh Details: tenderness (Diffuse) and other (Slightly shortened and internally rotated minimally); no ecchymosis Psych Appearance: grossly normal Mental Status: mental status grossly normal Course <MICHI Reza - Last Filed: 08/31/20 16:09> Vital Signs Vital signs: Vital Signs Temperature 36.7 C 08/31/20 14:02 Pulse 92 H 08/31/20 14:02 Respiratory Rate 20 08/31/20 14:02 Blood Pressure 179/82 H 08/31/20 14:02 Pulse Oximetry 96 08/31/20 14:02 Temperature 36.7 C 08/31/20 14:02 Pulse 92 H 08/31/20 14:02 Respiratory Rate 20 08/31/20 14:02 Blood Pressure 179/82 H 08/31/20 14:02 Blood Pressure Position Supine 08/31/20 14:02 Pulse Oximetry 96 08/31/20 14:02 Oxygen Delivery Method Room Air 08/31/20 14:02 Oxygen Flow Rate 0 08/31/20 14:02 Pain Level 7 08/31/20 14:02 Lab/Test Results Lab/Test Results: Laboratory Tests Range/Units 08/31/20 14:22 WBC (4.4-10.8) 10^3/uL 13.62 H RBC (3.93-5.22) 10^6/uL 4.64 Hgb (11.2-15.7) g/dL 13.4 Hct (36.0-46.0) % 40.4 MCV (80-95) fL 87.1 MCH (27.0-33.0) pg 28.9 MCHC (32.0-36.0) % 33.2 RDW (11.7-14.6) % 12.7 Plt Count (130-400) 10^3/uL 327 MPV (8.0-11.0) fL 9.9 Immature Gran % 0.5 Neutrophils % 80.5 Lymphocytes % 10.8 Monocytes % 7.1 Eosinophils % 0.7 Basophils % 0.4 Nucleated RBC % % 0 Absolute Neutrophils (1.2-6.7) 10^3/uL 10.96 H Absolute Lymphocytes (1.2-3.4) 10^3/uL 1.47 Absolute Monocytes (0.1-0.8) 10^3/uL 0.97 H Absolute Eosinophils (0.0-0.7) 10^3/uL 0.10 Absolute Basophils (0.0-0.2) 10^3/uL 0.05 Sign Out <MICHI Reza - Last Filed: 08/31/20 16:09> Sign Out Data: Sign Out Comment: Left hip fracture. Awaiting callback from hospitalist for admission. Can also discuss hip block by anesthesia Last updated by Sidney Curry PA at 08/31/20 16:10
[2020-08-31] MEDS: MORPHine 10 MG/ML VIAL 2 MG IVP (14:43)
[2020-08-31 14:48] LABS: AST 29 U/L (15-37); Albumin 4.4 g/dL (3.4-5.0); Alkaline Phosphatase 81 U/L (46-116); Anion Gap 9.1 mmol/L (3-11); BUN 12 mg/dL (7-18); Bilirubin, Total 0.7 mg/dL (0.2-1.0); CO2 26.9 mmol/L (21.0-32.0); CREATININE 0.69 mg/dL (0.55-1.02); Calcium 9.4 mg/dL (8.5-10.1); Chloride 101 mmol/L (98-107); Glucose 101 mg/dL (74-106); Potassium 3.3 mmol/L (3.5-5.1); Sodium 137 mmol/L (136-145); Total Protein 8.1 g/dL (6.4-8.2)
[2020-08-31 14:51] LABS: Bilirubin Negative (Negative); Blood Negative (Negative); Clarity Sl Cloudy (Clear); Glucose Negative (Negative); Ketones Trace mg/dL (Negative); Leukocyte Esterase Negative (Negative); Nitrite Negative (Negative); Urobilinogen 0.2 EU/dL (Up TO 0.2); pH 8.5 (5-8)
[2020-08-31 14:53] LABS: ALT < 6 U/L (14-59)
[2020-08-31] MEDS: Normal Saline 1,000 ML 150 ML IV (15:04)
--- NOTE | 2020-08-31 15:26 | NUR.NOTE ---
patient returned from DI, patient reportrs light headed I have not eaten currently checking a FSBS 96 , VSS, patient educated on need to be npoNursing Note:
--- NOTE | 2020-08-31 15:30 | DI.RAD_ITS ---
EXAM: XR FEMUR LT CLINICAL HISTORY: hip fx TECHNIQUE: COMPARISON: No exams were available for comparison FINDINGS: Four views were obtained. There is a comminuted moderately displaced fracture of the intertrochanter ic portion of the femur. There is marked varus angulation. No additional fracture seen. IMPRESSION: RADIATION DOSE DELIVERED: Total DLP
--- NOTE | 2020-08-31 16:24 | HPE_ITS ---
Date of service: 08/31/20 Time of Service: 16:25 Assessment and Plan Assessment and plan (1) Fracture of hip, left, closed: Status: Acute Assessment and plan: surgery following, plan for repair tomorrow. NPO after midnight pain management received nerve block in ER (2) Parkinson disease: Status: Chronic Assessment and plan: stable, continue home medication followed by DR Peace (3) Overactive bladder: Status: Acute Assessment and plan: continue home medication (4) Hypothyroidism: Status: Chronic Assessment and plan: TSH april 2020 2.06 [address] discussed with Dr Garcia History of Present Illness History of Present Illness Chief Complaint: left hip pain Narrative: This is a 75-year-old female with past medical history of osteoarthritis, Parkinson's disease, restless leg syndrome, anxiety, depression, short-term memory loss, overactive bladder, presenting via EMS for left hip injury. She states just prior to arrival she was taking off her jacket and hanging it up, twisting, feeling pain in her left hip, subsequently falling to the ground. work up in the ED shows a left hip fracture. Orthopedics was consulted and plan to repair tomorrow. hospitalist was contacted and she will be admitted. Review of Systems Constitutional Constitutional: Denies fever(s) ENT Ears, Nose, Mouth, and Throat: Denies vertigo and Denies dizziness Cardiovascular Cardiovascular: Denies chest pain, Denies syncope and Denies dyspnea Respiratory Respiratory: Denies dyspnea Gastrointestinal Gastrointestinal: Denies abdominal pain and Denies constipation Musculoskeletal Musculoskeletal: Reports arthralgias and Reports limited range of motion Integumentary/Breasts Skin/Breast: Denies lesions and Denies rash Neurologic Neurologic: Denies vertigo, Denies dizziness and Denies syncope [facility] Medical History Adjustment disorder with mixed anxiety and depressed mood Arthritis Carpal tunnel syndrome Heart murmur Hypothyroidism Incontinence Intermediate coronary syndrome Knee pain, right Kyphosis Macular hole Mitral valve regurgitation Multinodular thyroid Osteoporosis Overactive bladder Palpitations Parkinsons disease Physical deconditioning Scoliosis Seborrheic keratoses Short-term memory loss Tinea corporis Tinea pedis Surgical History H/O carpal tunnel repair H/O oophorectomy S/P appendectomy S/P eye surgery ambliopia S/P lumbar spine operation Family History Brother Parkinson disease Maternal Uncle Parkinson disease Paternal Cousin Parkinson disease Other Diabetes Stroke Social History Smoking/Tobacco Use Status: Former Tobacco Use Smoking risk assessment performed?: Yes Alcohol Intake: current Alcohol Intake frequency: holidays/special occasions only Drug use: Never Substance use type: does not use Household members: none Seatbelt use: always Do you feel safe at home: Yes Do you feel safe in your relationship?: Yes Meds Home Medications and Allergies Home Medications Medication Instructions Recorded Confirmed Type furosemide 20 mg tablet 40 mg PO DAILY tab 08/26/18 08/31/20 History levothyroxine 25 mcg capsule 25 mcg PO DAILY 08/26/18 08/31/20 History mirtazapine 7.5 mg tablet 7.5 mg PO QHS #30 tab 06/05/19 08/31/20 Rx carbidopa 25 mg-levodopa 100 mg 2 tab PO TID #540 tab 12/30/19 08/31/20 Rx tablet Saccharomyces boulardii 250 mg 250 mg PO DAILY cap 04/26/20 08/31/20 History capsule cholecalciferol (vitamin D3) 25 25 mcg PO TID cap 06/29/20 08/31/20 History mcg (1,000 unit) capsule calcium-vitamin D3-vitamin K 1 tab PO DAILY 08/31/20 08/31/20 History [Calcium Soft Chew] glucose 1 tab PO DAILY 08/31/20 08/31/20 History melatonin 3 mg PO HS 08/31/20 08/31/20 History mirabegron [Myrbetriq] 25 mg PO DAILY 08/31/20 08/31/20 History multivit with min-folic acid 1 tab PO DAILY 08/31/20 08/31/20 History [Centrum MultiGummies] peg 400-propylene glycol (PF) drp 08/31/20 History [Systane (PF)] teriparatide [Forteo] 20 mcg SUBCUT DAILY 08/31/20 08/31/20 History Allergies Allergy/AdvReac Type Severity Reaction Status Date / Time omeprazole Allergy Intermediate Verified 08/31/20 14:06 Exam Const General: cooperative, healthy appearing, comfortable and no acute distress Orientation: alert, awake, oriented to person, oriented to place and confused (Of exact date) [facility] Head: normal to inspection, normocephalic and atraumatic Face and sinus: normal facial exam Mouth: moist mucous membranes Eyes General: appearance normal, both eyes and all related structures Alignment and Position: alignment normal Periorbital: periorbital findings normal Eyelids: eyelids normal Conjunctivae: conjunctivae normal Sclera: sclerae normal Cornea: corneas normal Pupils: PERRL EOM: EOM intact bilaterally Direct ophthalmoscopy: normal light reflex Neck Neck: normal visual inspection, full ROM, trachea midline, supple and nontender Resp Effort & Inspection: normal respiratory effort and able to speak in complete sentences Auscultation: clear to auscultation bilaterally Cardio Rate: regular rate Rhythm: regular rhythm GI Palpation: soft and nontender Back/Spine/Pelvis Back: No back tenderness Skin General skin exam: no rashes or lesions noted Neuro General: patient alert, patient awake, moves all extremities and no focal motor deficits Cognition: normal cognition Motor: muscle tone normal throughout Sensory Exam: no sensory deficits noted Extrem General: pedal edema on the right 1+ (Baseline per patient) Right upper extremity: normal to inspection, full ROM and normal capillary refill Left upper extremity: normal to inspection, full ROM and normal capillary refill Right lower extremity: full ROM and normal capillary refill Left lower extremity: normal capillary refill and hip/thigh Details: tenderness (Diffuse) and other (Slightly shortened and internally rotated minimally); no ecchymosis Psych Appearance: grossly normal Mental Status: mental status grossly normal Results Labs Result diagrams: 09/01/20 06:20 09/01/20 06:20 Labs: Laboratory Results - last 24 hr 08/31/20 08/31/20 08/31/20 14:22 14:22 14:40 WBC 13.62 H RBC 4.64 Hgb 13.4 Hct 40.4 MCV 87.1 MCH 28.9 MCHC 33.2 RDW 12.7 Plt Count 327 MPV 9.9 Immature Gran % 0.5 Neutrophils % 80.5 Lymphocytes % 10.8 Monocytes % 7.1 Eosinophils % 0.7 Basophils % 0.4 Nucleated RBC % 0 Absolute Neutrophils 10.96 H Absolute Lymphocytes 1.47 Absolute Monocytes 0.97 H Absolute Eosinophils 0.10 Absolute Basophils 0.05 Sodium 137 Potassium 3.3 L Chloride 101 Carbon Dioxide 26.9 Anion Gap 9.1 BUN 12 Creatinine 0.69 Estimated GFR/1.73 m2 >= 60.00 Glucose 101 Calcium 9.4 Total Bilirubin 0.7 AST 29 ALT < 6 L Alkaline Phosphatase 81 Total Protein 8.1 Albumin 4.4 Urine Color Yellow Urine Clarity Sl cloudy Urine pH 8.5 H Ur Specific [place] 1.020 Urine Protein Negative Urine Ketones Trace H Urine Blood Negative Urine Nitrite Negative Urine Bilirubin Negative Urine Urobilinogen 0.2 Ur Leukocyte Esterase Negative Urine Glucose Negative Last Vital Signs Temp 36.7 C 08/31/20 14:02 Pulse 97 H 08/31/20 15:28 Resp 16 08/31/20 15:28 BP 149/78 H 08/31/20 15:28 Pulse Ox 96 08/31/20 15:28 COVID-19 Screening Have you, or household traveled for leisure in last 14 days?: No Had IN PERSON contact w/suspected or confirmed C-19 person: No
--- NOTE | 2020-08-31 16:24 | DI.VRAD_ITS ---
PROCEDURE INFORMATION: Exam: XR Left Femur Exam date and time: 08/31/2020 4:09 PM Age: 75 years old Clinical indication: Pain; Left; Patient HX: Hip FX TECHNIQUE: Imaging protocol: XR Left femur. Views: 2 views. COMPARISON: No relevant prior studies available. FINDINGS: Bones/joints: Acute comminuted impacted fracture of the intertrochanteric left proximal femur. Mild superior displacement. No evidence for dislocation. Generalized osteopenia. Soft tissues: Lateral hip soft tissue swelling. IMPRESSION: Acute comminuted superiorly impacted fracture of the intertrochanteric proximal left femur. No left hip dislocation. Dictated and Authenticated by: Odilon Simmons MD. Ordering:BETSY Little MD
--- NOTE | 2020-08-31 16:45 | RT.EKG_ITS ---
APPROVED REPORT Exam: Resting ECG Patient Location: E HR:100 bpm ECG Measurements Heart Rate 100 AXIS [place] 183 P 43 QRSd 100 QRS -36 QT 360 T 41 QTc 463 Conclusion Sinus tachycardia...rate> 99 Probable left atrial enlargement...P >50mS, <-0.10mV V1 Inferior infarct, old...Q >35mS, II III aVF I have reviewed and interpreted ECG and agree with software generated interpretation.
[2020-08-31] MEDS: Bupivacaine 0.5% Pres-Free 30 ML VIAL (16:58)
[2020-08-31] MEDS: EPINEPHrine 1 MG/ML AMP pres-free (16:58)
[2020-08-31] MEDS: Dexamethasone 4 MG/ML VIAL (16:58)
[2020-08-31] MEDS: Carbidopa 25/Levodopa 100 TAB PO (17:11)
[2020-08-31 17:44] LABS: Magnesium 2.1 mg/dL (1.8-2.4)
[2020-08-31] MEDS: ACETAMINOPHEN 1,000 MG/100 ML BTL 400 MG IVPB (17:47)
[2020-08-31] MEDS: POTASSIUM CHLORIDE 10 MEQ/100 ML BAG 50 MEQ IVPB ×3 (18:17→22:26)
[2020-08-31] MEDS: Cholecalciferol (Vitamin D3) 1,000 UNIT TAB 1000 UNITS PO (19:43)
[2020-08-31] MEDS: Mirtazapine 15 MG TAB 7.5 MG PO (21:17)
[2020-08-31] MEDS: Melatonin 3 MG TAB PO (21:17)
[2020-08-31] MEDS: MORPHine 2 MG/ML SYR IVP (21:18)
[2020-09-01] VITALS (13 sets, daily range): BP systolic 105–196; BP diastolic 57–95; PULSE 56–78; RESP 10–17; TEMP 35.7–37.2; O2SAT 93–100
[2020-09-01] MEDS: ACETAMINOPHEN 1,000 MG/100 ML BTL 400 MG IVPB ×4 (00:15→23:59)
[2020-09-01] MEDS: POTASSIUM CHLORIDE 10 MEQ/100 ML BAG 50 MEQ IVPB (01:47)
[2020-09-01] MEDS: Normal Saline 1,000 ML 100 ML IV (01:52)
[2020-09-01] MEDS: Levothyroxine 25 MCG TAB PO (05:49)
[2020-09-01] MEDS: Carbidopa 25/Levodopa 100 TAB PO ×2 (05:49→16:02)
[2020-09-01 06:54] LABS: Abs Immature Grans 0.02 10^3/uL (0.0-0.06); Absolute Basophil Count 0.03 10^3/uL (0.0-0.2); Absolute Eosinophil Count 0.03 10^3/uL (0.0-0.7); Absolute Lymphocyte Count 0.61 10^3/uL (1.2-3.4); Absolute Monocyte Count 0.49 10^3/uL (0.1-0.8); Absolute Neutrophil Count 5.91 10^3/uL (1.2-6.7); Basophils % 0.4; Eosinophils % 0.4; HCT 35.7 % (36.0-46.0); HGB 11.6 g/dL (11.2-15.7); Immature Grans % 0.3; Lymphocytes % 8.6; MCH 28.7 pg (27.0-33.0); MCHC 32.5 % (32.0-36.0); MCV 88.4 fL (80-95); Monocytes % 6.9; Neutrophils % 83.4; Nucleated RBC 0 %; Platelet Count 310 10^3/uL (130-400); RBC 4.04 10^6/uL (3.93-5.22); RDW 12.6 % (11.7-14.6); RDW-SD 40.7 fL; WBC 7.09 10^3/uL (4.4-10.8)
--- NOTE | 2020-09-01 07:30 | OCONE_ITS ---
Date of service: 09/01/20 Time of Service: 07:30 History of Present Illness History of Present Illness Chief Complaint: Left hip fracture Narrative: Christiana is a 75-year-old who was turning and twisting to place a coat up on a coat rack when she had some pain in her left hip and went down the ground landing on her right side. She had immediate pain in the left hip and was unable to get up. EMS was called who mobilized her up to a stretcher and brought her to the emergency department. She was diagnosed with a displaced intertrochanteric hip fracture. Peripheral nerve block was necessary by anesthesia for some pain relief and she was admitted to the hospital medicine service. She currently complains of pain about the left hip with any motion. She denies numbness or tingling. She does have a history of some low back and right hip and right knee symptoms although those have been fairly stable in the past. She has had previous injections of the right knee. She has a history of Parkinson's. She denies any significant changes to her medical health. She has been diagnosed with osteoporosis and takes Forteo injections. Consults Consult date: 08/31/20 Requesting physician: Vania Hsu Consult Reason Left intertrochanteric hip fracture Assessment and Plan Assessment and plan (1) Fracture of hip, left, closed: Status: Acute Assessment and plan: Christiana is a 75-year-old who had a fall and suffered a displaced intertrochanteric hip fracture on the left side. She is debilitated due to her Parkinson's and chronic osteoporosis with some underlying right leg symptoms. Unfortunately, this left leg is her dominant leg. Given the fracture I do recommend operative fixation. I reviewed the technical details of intervention nail fixation of the left proximal femur fracture. I discussed the risk of the procedure to include bleeding, infection, pain, stiffness, damage to nerves and vessels, damage to muscles and tendons, malunion, nonunion, or problems, hardware failure, blood clot. Despite these risks, she elects to proceed. I also discussed the case with her son who also agrees to proceed. After the surgery she will be weightbearing as tolerated with the need for physical therapy. Usually by postop day #2 we will be able to determine she may build to go home with home health services versus the need for a rehab stay. Ancef for prophylactic antibiotics to be given within 30 minutes of incision. 1 g of tranexamic acid also to be given prior to incision. Qualifiers: Encounter type: initial encounter Qualified Code(s): S72.002A - Fracture of unspecified part of neck of left femur, initial encounter for closed fracture Review of Systems All systems reviewed & are unremarkable except as noted in HPI and below PFSH Medical History Adjustment disorder with mixed anxiety and depressed mood Arthritis Carpal tunnel syndrome Heart murmur Hypothyroidism Incontinence Intermediate coronary syndrome Knee pain, right Kyphosis Macular hole Mitral valve regurgitation Multinodular thyroid Osteoporosis Overactive bladder Palpitations Parkinsons disease Physical deconditioning Scoliosis Seborrheic keratoses Short-term memory loss Tinea corporis Tinea pedis Surgical History H/O carpal tunnel repair H/O oophorectomy S/P appendectomy S/P eye surgery ambliopia S/P lumbar spine operation Family History Brother Parkinson disease Maternal Uncle Parkinson disease Paternal Cousin Parkinson disease Other Diabetes Stroke Social History Smoking/Tobacco Use Status: Former Tobacco Use Smoking risk assessment performed?: Yes Alcohol Intake: current Alcohol Intake frequency: holidays/special occasions only Drug use: Never Substance use type: does not use Household members: none Seatbelt use: always Do you feel safe at home: Yes Do you feel safe in your relationship?: Yes Exam Narrative Exam Narrative: Laying supine in bed. No acute distress. Alert on x3. Head is normocephalic and atraumatic. Neck is supple with full motion without pain. Evaluation of left lower extremity shows a shortened and externally rotated limb. There is no skin defects or changes around the hip itself. No areas of redness or erythema to suggest infection. No abrasions or lacerations. Mild swelling of the left thigh but easily compressible and soft. No pain to palpation of the distal femur, knee, leg, foot, or ankle. There is some mild pain to palpation along the joint lines of the left knee. She has intact ankle dorsiflexion, ankle plantarflexion, great toe extension, great toe flexion. Sensation intact to light touch over the deep and superficial peroneal nerves and tibial nerve. Palpable DP and PT pulse. Results Last Vital Signs Temp 36.6 C 09/01/20 02:51 Pulse 78 09/01/20 02:51 Resp 16 09/01/20 02:51 BP 164/86 H 09/01/20 02:51 Pulse Ox 93 09/01/20 02:51 Labs Result diagrams: 09/01/20 06:20 08/31/20 14:22 Labs: Laboratory Results - last 24 hr 08/31/20 08/31/20 08/31/20 14:22 14:22 14:22 WBC 13.62 H RBC 4.64 Hgb 13.4 Hct 40.4 MCV 87.1 MCH 28.9 MCHC 33.2 RDW 12.7 Plt Count 327 MPV 9.9 Immature Gran % 0.5 Neutrophils % 80.5 Lymphocytes % 10.8 Monocytes % 7.1 Eosinophils % 0.7 Basophils % 0.4 Nucleated RBC % 0 Absolute Neutrophils 10.96 H Absolute Lymphocytes 1.47 Absolute Monocytes 0.97 H Absolute Eosinophils 0.10 Absolute Basophils 0.05 Sodium 137 Potassium 3.3 L Chloride 101 Carbon Dioxide 26.9 Anion Gap 9.1 BUN 12 Creatinine 0.69 Estimated GFR/1.73 m2 >= 60.00 Glucose 101 Calcium 9.4 Magnesium 2.1 Total Bilirubin 0.7 AST 29 ALT < 6 L Alkaline Phosphatase 81 Total Protein 8.1 Albumin 4.4 Urine Color Urine Clarity Urine pH Ur Specific [place] Urine Protein Urine Ketones Urine Blood Urine Nitrite Urine Bilirubin Urine Urobilinogen Ur Leukocyte Esterase Urine Glucose 08/31/20 09/01/20 14:40 06:20 WBC 7.09 D RBC 4.04 Hgb 11.6 Hct 35.7 L MCV 88.4 MCH 28.7 MCHC 32.5 RDW 12.6 Plt Count 310 MPV 10.0 Immature Gran % 0.3 Neutrophils % 83.4 Lymphocytes % 8.6 Monocytes % 6.9 Eosinophils % 0.4 Basophils % 0.4 Nucleated RBC % 0 Absolute Neutrophils 5.91 Absolute Lymphocytes 0.61 L Absolute Monocytes 0.49 Absolute Eosinophils 0.03 Absolute Basophils 0.03 Sodium Potassium Chloride Carbon Dioxide Anion Gap BUN Creatinine Estimated GFR/1.73 m2 Glucose Calcium Magnesium Total Bilirubin AST ALT Alkaline Phosphatase Total Protein Albumin Urine Color Yellow Urine Clarity Sl cloudy Urine pH 8.5 H Ur Specific [place] 1.020 Urine Protein Negative Urine Ketones Trace H Urine Blood Negative Urine Nitrite Negative Urine Bilirubin Negative Urine Urobilinogen 0.2 Ur Leukocyte Esterase Negative Urine Glucose Negative Imaging Imaging Studies: X-ray of the left hip and femur demonstrates a displaced intert rochanteric hip fracture with some mild comminution about the trochanter. No fracture seen on the femur shaft or distal femur.
[2020-09-01 07:39] LABS: Anion Gap 8.1 mmol/L (3-11); BUN 9 mg/dL (7-18); CO2 24.9 mmol/L (21.0-32.0); CREATININE 0.68 mg/dL (0.55-1.02); Calcium 8.4 mg/dL (8.5-10.1); Chloride 106 mmol/L (98-107); Glucose 117 mg/dL (74-106); Sodium 139 mmol/L (136-145)
[2020-09-01] MEDS: Normal Saline Flush 10 ML SYR IVP (07:44)
[2020-09-01] MEDS: Cholecalciferol (Vitamin D3) 1,000 UNIT TAB 1000 UNITS PO ×3 (07:44→19:49)
[2020-09-01] MEDS: MORPHine 2 MG/ML SYR IVP (09:59)
--- NOTE | 2020-09-01 10:53 | PDOC.CMIN ---
- If Service Date Differs Date of service: 09/01/20 Time of Service: 10:53 Care Management Initial Assess REASON FOR HOSPITALIZATION:: Left Hip Fracture PAST MEDICAL HISTORY/PAST SURGICAL HISTORY:: Medical History. Adjustment disorder with mixed anxiety and depressed mood. Arthritis. Carpal tunnel syndrome. Heart murmur. Hypothyroidism. Incontinence. Intermediate coronary syndrome. Knee pain, right. Kyphosis. Macular hole. Mitral valve regurgitation. Multinodular thyroid. Osteoporosis. Overactive bladder. Palpitations. Parkinsons disease. Physical deconditioning. Scoliosis. Seborrheic keratoses. Short-term memory loss. Tinea corporis. Tinea pedis. Surgical History. H/O carpal tunnel repair. H/O oophorectomy. S/P appendectomy. S/P eye surgery. ambliopia. S/P lumbar spine operation PREVIOUS FUNCTIONAL STATUS/SOCIAL/FAMILY SUPPORTS:: Christiana lives in [place], alone, but on the same property as her son and daughter in law. She has a caregiver who assists with some care during the day, and also has support from her son and dil. She is independent with her ADL's at baseline. CURRENT FUNCTIONAL STATUS:: Christiana was in the OR for the majority of the day, making it difficult for CM to have a conversation regarding her discharge plan. CM called and spoke to her son, Kareem, who provided insight about his mom. CM discussed the possibility of Christiana needing rehab post operatively. Kareem stated that he believes his mother will agree to this, and would like a referral sent to [facility], as that would be the best option for the family. CM will discuss this with Christiana when she is available, and will send the referral to [facility], at the consent of her son, who is listed as her agent on her [place] AD. ADVANCE DIRECTIVES:: On file, Kareem listed as agent. Has patient been provided with info about the portal/API?: Yes Did the patient sign up for the portal?: Yes (previously) CODE STATUS:: Full Code INSURANCE COVERAGE / FINANCIAL ISSUES:: [employer] replacement CURRENT HOME/COMMUNITY SERVICES/EQUIPMENT:: Christiana has a private caregiver who assists her at home, and she also receives support from her son and dil. PRIMARY CARE PHYSICIAN:: Shara Jimenez POTENTIAL DISCHARGE NEEDS:: Evaluations for further needs, potential rehab post surgically, follow up appointments PATIENT/FAMILY EDUCATION NEEDS:: Review discharge instructions including activity levels and medications, discussion of self care needs and goals of care. ANTICIPATED BARRIERS TO DISCHARGE:: None identified. TRANSPORTATION:: dependent on dispostion; private vehicle by son vs w/c van. PLAN:: Christiana went to the OR today to repair her fractured hip. She may need a rehab stay post surgically prior to returning home. She has support from her son and a private caregiver in the home, although she lives alone. CM sent a referral to [facility] for review. She will likely transport via w/c van. CM spoke to her son, Kareem, who supports this plan. CM will continue to follow.
[2020-09-01] MEDS: Lactated Ringers 1,000 ML 30 ML IV (11:30)
--- NOTE | 2020-09-01 12:03 | PHA.REVIEW ---
Pharmacy Admission Review - Admission Clinical Review (Last Reviewed 09/01/20 @ 07:32 by Stephan Arambula MD) Fracture of hip, left, closed (Acute) Overactive bladder (Acute) omeprazole Allergy (Intermediate, Verified 08/31/20 14:06) Height 5 ft 5 in Weight 52.163 kg - Renal Dosing Renal Dosing: BUN 9 mg/dL (7-18) 09/01/20 06:20 Creatinine 0.68 mg/dL (0.55-1.02) 09/01/20 06:20 Medications needing adjustments: Reviewed List of meds needing interventions: all ok - Anticoagulation Anticoagulation: Hgb 11.6 g/dL (11.2-15.7) 09/01/20 06:20 Hct 35.7 % (36.0-46.0) L 09/01/20 06:20 Plt Count 310 10^3/uL (130-400) 09/01/20 06:20 Creatinine 0.68 mg/dL (0.55-1.02) 09/01/20 06:20 DVT Prohphylaxis: N/A Therapeutic Anticoagulation: N/A - Opiate Usage Evaluate Pain Scale/Pains Meds: Reviewed Scheduled Bowel Reg ordered if on Opiates?: No (likely to follow surg) - Relevant Labs Sodium 139 mmol/L (136-145) 09/01/20 06:20 Potassium 4.0 mmol/L (3.5-5.1) D 09/01/20 06:20 Chloride 106 mmol/L (98-107) 09/01/20 06:20 Magnesium 2.1 mg/dL (1.8-2.4) 08/31/20 14:22 Electrolytes, C-Reactive P, ESR: Reviewed - DM Control DM Control: Glucose 117 mg/dL (74-106) H 09/01/20 06:20 Insulin Dosing: N/A - Heart Failure/NM EF%, ROWAN's, B-Blockers, Diuretics: Reviewed - BP Control BP Control: Blood Pressure 160/88 Blood Pressure 164/86 If elevated: Reviewed - Qtc Review If Elevated: Reviewed (QTc 463) - IV to PO Switch IV Medications: Reviewed - Home Meds Relevent Home Meds Not ordered & why?: Forteo (teriparatide), of note: recently tapered off of gabapentin - Current meds Current Medication Order Review: Reviewed
--- NOTE | 2020-09-01 12:50 | DI.RAD_ITS ---
EXAM: XR HIP LT IN OR CLINICAL HISTORY: left hip fracture TECHNIQUE: 2D and realtime digital imaging was performed. COMPARISON: No exams were available for comparison FINDINGS: C-arm fluoroscopy was utilized by Dr. Arambula during open reduction and internal fixation intertroch anteric fracture of femur. Hard copies show gamma nail in place transfixing the fracture fragments. Fluoro time, 65 seconds. IMPRESSION: RADIATION DOSE DELIVERED: Total DLP
[2020-09-01] MEDS: Bupivacaine 0.25% Pres-Free 30 ML VIAL (13:00)
[2020-09-01] MEDS: Ketorolac 30 MG/ML VIAL (13:00)
--- NOTE | 2020-09-01 13:12 | ROE_ITS ---
Date of service: 09/01/20 Time of Service: 13:15 Operative Note Operative Note DATE OF PROCEDURE: 09/01/20 PRE-OP DIAGNOSIS: Left Intertrochanteric Femur Fracture POST-OP DIAGNOSIS: same PROCEDURE: Left Intramedullary Fixation of Proximal Femur Fracture SURGEON: Stephan Arambula BAKING ASSISTANT: Brielle López ANESTHESIA: GETA ESTIMATED BLOOD LOSS: 200 PATHOLOGY: none sent COMPLICATIONS: None Patient was transported to: PACU Patient's condition: stable Implants: Depuy-Synthes TFNA 11mm x 170mm Indications: Christiana is a 75yo female who presented to the Emergency Department after a fall. X-rays confirmed the diagnosis of a intertrochanteric fracture of the proximal femur. I reviewed the possible treatment options and given the fracture of the femur, I recommended operative fixation. I discussed the technical details of the surgery. I reviewed the risks such as bleeding, infection, pain, stiffness, malunion, nonunion, hardware prominence, hardware faiilure, malrotation, avascular necrosis, blood clot. Despite these risks, [gender] agreed to proceed. Findings: There was a fracture of the proximal femur which was able to be reduced with traction and internal rotation and external manipulation. Procedure Description: Christiana was greeted in the preoperative area. Consent was previously reviewed and signed. Once in the operating room, anesthesia was administered. The patient was transferred to the fracture table in the supine position. She was positioned onto the perineal post. All bony prominences were well padded. The arm of the operative side was then placed across the chest and secured. The nonoperative leg was scissored and secured to the traction boom with a pillow and tape. The operative limb was placed in the traction boot and padded and secured. A gentle reduction was then performed with traction and internal rotation and gentle external manipulation. A single dose of TXA, 1 gram, was then administered IV. Prophylactic antibiotics, Cefazolin 2 grams, was given for prophylactic antibiotics. A timeout was performed for safe surgery. The left leg was prepped with Chloraprep. A shower curtain drape was placed. Using fluoroscopy, the starting point was marked over the lateral hip, proximal to the tip of the greater trochanter. A 3cm incision was made through skin and the fascia of the gluteus musculature until the tip of the trochanter was palpable. The starting wire was placed onto the tip, just slightly on the media aspect, and centered in the AP plane. Using a mary, the starting guide wire was buried into the bone. A lateral x-ray confirmed appropriate position and the guidewire was advanced to the level of the lesser trochanter. With a tissue protector, the proximal femur was opened with the opening reamer. The short TFNA was chosen for this case and a Synthes TFNA [id number] nail was selected and opened on the back table. The nail was assembled to the aiming arm on the back table and confirmed to be aligned with the triple sleeve for blade insertion. Using manual force the nail was advanced into the femur. A few light mallet blows advanced the nail to its appropriate position. The triple sleeve was inserted through the targeting arm and the skin, soft tissue, and IT band was then incised. The triple sleeve was advanced down to the lateral femur. A guidewire was advanced into the femoral head where it was noted to be centered. A lateral x-ray was used to confirm centered positioning on the lateral. Happy with the length of the guidewire, this was measured. A 90mm helical blade was opened. The lateral cortex was opened and the path of the blade was reamed with a tapered reamer to appropriate depth. The helical blade was malletted into position and confirmed to be appropriately located on fluoroscopy. The set screw was advanced to a half turn shy of fully tightened, allowing for the helical blade to slide. The fracture was compressed before removing the targeting device. The targeting device was removed. AP and lateral x-rays of the hip confirmed appropriate positioning within the femur and with good alignment of the fracture. Using the targeting arm, the skin was incised for placement of the distal locking screw. The trochar was inserted through the skin and IT band down onto the lateral cortex of the femur. The 4.2mm drill was advanced across the femur and through the nail. This was measured and an appropriately sized 5.0mm screw was placed. The targeting arm was removed. Final x-rays were obtained. The wounds were thoroughly irrigated. A cocktail consisting of 50cc of 0.5% bupivacaine, 30mg Ketorolac, and 10cc of Exparel was injected throughout the wounds both deep and superficially. The deep fascia of the proximal two wounds was reapproximated with a 0 Vicryl. The deep tisses were closed with a 2-0 Vicryl and the skin was closed with a running subcuticular Monocryl. The wounds were dressed with a Mepilex silver dressing. At the end of the case, all counts were correctAnn Villeda tolerated the procedure well without known complication and was taken to the PACU for recovery. Physical therapy will start post-operatively, weigh-bearing as tolerated with assistive devices. Anticoagulation will start within 12-24 hours. 3 doses of post-operative antibiotics for prophylaxis will be administered.
[2020-09-01] MEDS: fentaNYL 100 MCG/2 ML VIAL IVP ×2 (14:04→14:15)
--- NOTE | 2020-09-01 15:21 | PT.INIE ---
Date of service: 09/01/20 Time of Service: 15:21 PT Notes Visit Reasons: LEFT HIP FRACTURE Physical Therapy Inpatient Initial Evaluation Date: 09/01/2020 Referring Doctor: Stephan Arambula MD PT Orders: PT CONSULT: Status post Ortho surgery. Status post IMN fixation of left fracture Precautions: Fall. Standard. WBAT on left LE. Patient Profile/Admitting Diagnosis: Christiana is a 75-year-old female with chronic Parkinson's disease and hypothyroidism who presented to the ED on 08/31/2020 with chief complaint of left hip pain due to twisting and falling at home. She is diagnosed with left displaced intertrochanteric fracture status post ORIF using IMN on postoperative day 0. PMHX: Medical History Adjustment disorder with mixed anxiety and depressed mood Arthritis Carpal tunnel syndrome Heart murmur Hypothyroidism Incontinence Intermediate coronary syndrome Knee pain, right Kyphosis Macular hole Mitral valve regurgitation Multinodular thyroid Osteoporosis Overactive bladder Palpitations Parkinsons disease Physical deconditioning Scoliosis Seborrheic keratoses Short-term memory loss Tinea corporis Tinea pedis Surgical History H/O carpal tunnel repair H/O oophorectomy S/P appendectomy S/P eye surgery ambliopia S/P lumbar spine operation Social History/Home Situation: Lives alone in a private residence with a flight of steps to enter and bilateral rails. Son and son's family live across from her house. For the past 3 years Christiana has had a lady come in from 11 AM to 1 PM Mondays through Fridays to help with meals and house chores. Son and son's family are also moved with patient's care. Christiana indicates having had 2 falls in the past year. In modified independent for wheeled walker for short distances only. Equipment Owned/DME: [employer] Subjective: Agreeable to PT consult. Complained of lightheadedness with movement which she states she has not had a prior to surgery. Complained of not being able to lift left LE and of minimal pain in the left hip. Objective: General Observation: Mepilex Ag over surgical incision. Continuous oxygen supplementation 2 L/min via NC. Hills catheter in place. IV access in right UE. Nurse Tito present throughout consult. Mental Status: Patient is alert and is able to follow single step commands. Apprehensive about moving as it increases her pain level. Oriented as to place and time. Pain: Minimal pain in L hip with movement Vital Signs: WNL as closely monitored by Nurse Francis and his [employer] ROM: Right Upper Extremity: Shoulder Flexion WFL. Shoulder abduction WFL. Elbow flexion WFL. Wrist flexion WFL. Opening and closing of hand WFL. Left Upper Extremity: Shoulder Flexion WFL. Shoulder abduction WFL. Elbow flexion WFL. Wrist flexion WFL. Opening and closing of hand WFL. Right Lower Extremity: Hip flexion WFL. Hip abduction WFL. Knee flexion WFL. Ankle dorsiflexion WFL. Ankle plantarflexion WFL. Left Lower Extremity: Hip flexion unable to move at this time due to pain but tolerated edeg of bed sitting without undue pain. Hip abduction unable to move at this time due to pain but tolerated edeg of bed sitting without undue pain. Knee flexion WFL allows up to 80 degrees. Ankle dorsiflexion to neutral only. Ankle plantarflexion WFL. Strength: Right Upper Extremity: Shoulder flexors 4-/5. Shoulder abductors 4-/5. Elbow flexors 4-/5. Elbow extensors 4-/5. Assembler Tester strong. Left Upper Extremity: Shoulder flexors 4-/5. Shoulder abductors 4-/5. Elbow flexors 4-/5. Elbow extensors 4-/5. Assembler Tester strong. Right Lower Extremity: Hip flexors 4-/5. Hip abductors 4-/5. Knee flexors 4-/5. Knee extensors 4-/5. Ankle dorsiflexors 3-/5. Ankle plantarflexors 3-/5. Left Lower Extremity: Hip flexors 2-/5. Hip abductors 2-/5. Knee flexors 2-/5. Knee extensors 2-/5. Ankle dorsiflexors 3-/5. Ankle plantarflexors 4-/5. Sensation: Intact as to pain and pressure on bilateral lower extremities. Bed Mobility/Transfers: Rolling minimal assist of 2 Supine to sit minimal assist of 2 Sit to supine minimal assist of 2 Sit to stand minimal assist of 2 for safety Stand to sit minimal assist of 2 for safety Bed to chair minimal assist of 2 for safety Chair to bed minimal assist of 2 for safety Gait: Small 4 steps +4 step backs using front with WBAT on left LE with minimal assist of 2. Complained of lightheadedness throughout with difficulty lifting left LE high enough but was able to slide said L foot forward. Trunk anteroflexed. Step height and length decreased. Balance: Static Sitting: Good Dynamic Sitting: Fair Static Standing: Poor Dynamic Standing: Poor Special Tests: Mobility Limitations Standardized Measure [facility] AM-PAC 6 clicks Basic Mobility Inpatient Short Form: Raw Score: 12 CMS Score: 69% deficit Informed Consent/Education: Patient instructed in purpose of PT consult and plan of care. Assessment: Christiana demonstrates significant functional mobility decline requiring the assistance of 2 caregivers and the use of a walker for all mobility ADL performance, difficulty with walking, impairment with balance, generalized weakness, and increased risk for falls due to admitting diagnoses and postoperative status. She benefit from PT services to address her impairment level findings and functional limitations below. At skilled services patient will be at risk for further functional mobility decline, increased burden of care, and increased risk for falls. Patient presents with clinical signs and symptoms consistent with current/admitting diagnoses that have resulted to mobility limitations, gait instability, generalized weakness, and impairment of motor control as demonstrated by the following impairment level findings: 1. Decreased strength to B UEs/LE major muscle groups 2. Impaired sitting/standing balance 3. Impaired activity tolerance 4. Limitation of joint range of motion in left hip Impairments are contributing to the following functional limitations: 1. Dependent bed mobility skills 2. Increased dependence with transfers 3. Inability to safely ambulate without assistive device and physical assistance 4. Increase completion time for mobility ADL performance 5. Increased fall risk 6. Inability to negotiate steps alone safely Patient is assessed as a 09396 high complexity based on the following: History: 75 [id number] with impairment level findings, functional limitations, and past medical history as indicated above Examination: Demonstrable impairment in strength, balance, and mobility level with underlying impairments and functional limitations as documented above Presentation:Evolving Decision Makin high complexity Goals: Goals X1 week 1. Supine-Sit independent 2. Sit-Supine independent 3. Sit-Stand independent 4. Stand-Sit independent 5. Bed-Chair independent 6. Chair-Bed independent 7. Independent gait on level surface with use of least restrictive device for at least 30 feet without report of pain nor dyspnea 8. Independent stair negotiation while holding onto bilateral rails for at least 12 steps without report of pain nor dyspnea 10. Good static and dynamic standing balance/tolerance Plan of Care/Treatment Plan: 1-2x/day, 7 days/week x 1 week. Plan of care has been reviewed with the ADMINISTRATIVE MANAGER providing the service under Physical Therapy direction. Initiate Physical Therapy intervention for strengthening, bed mobility, transfers, gait, stairs, balance training, use of assistive device. DISCHARGE RECOMMENDATIONS: Patient will benefit from fdc facility placement for continued skilled physical therapy services in order to progress mobility level, strength, and balance in preparation for a safe discharge to home. TREATMENT CODE/TIME: 17988 x 30 minutes, 02108 x 23 minutes beginning at 15:21 PM. Thank you for the opportunity to participate in the care of this patient. Katelyn Pedro PT, DPT, CLT [facility] [place], [place]
[2020-09-01] MEDS: Normal Saline 1,000 ML 125 ML IV ×2 (16:02→23:59)
[2020-09-01] MEDS: ceFAZolin 1 GM/50 ML BAG IVPB (19:50)
[2020-09-01] MEDS: Melatonin 3 MG TAB PO (21:42)
[2020-09-01] MEDS: Mirtazapine 15 MG TAB 7.5 MG PO (21:42)
[2020-09-02] VITALS (9 sets, daily range): BP systolic 110–166; BP diastolic 61–76; PULSE 69–81; RESP 16–18; TEMP 36.9–37.2; O2SAT 90–99
[2020-09-02] MEDS: ceFAZolin 1 GM/50 ML BAG IVPB ×2 (04:38→11:35)
[2020-09-02] MEDS: Carbidopa 25/Levodopa 100 TAB PO ×3 (06:08→15:41)
[2020-09-02] MEDS: Levothyroxine 25 MCG TAB PO (06:08)
[2020-09-02] MEDS: Normal Saline 1,000 ML 125 ML IV ×2 (08:40→18:08)
[2020-09-02] MEDS: Cholecalciferol (Vitamin D3) 1,000 UNIT TAB 1000 UNITS PO ×3 (08:42→21:11)
[2020-09-02] MEDS: Mirabegron 25 MG TABCR PO (08:42)
[2020-09-02] MEDS: ACETAMINOPHEN 1,000 MG/100 ML BTL 400 MG IVPB ×3 (08:42→23:29)
--- NOTE | 2020-09-02 09:10 | PDOC.CMPRO ---
Care Management Progress Note S/O: Christiana was sitting up in her chair when CM met with her. She shared concerns around returning home and was agreeable to SNF consult. Dr. Arambula reports Christiana just may be ready to return home after a few days, inpatient, CM will continue to follow and support Christiana in discharge planning considerations. A: 75 year old female admitted to [facility] 08/31/20 for Left Hip Fracture P: Christiana continues to be monitored closely post surgically, anticipate she may require SNF stay prior to returning home. She has support from her son as well as a private caregiver in the home, though she resides alone. Referral sent to [facility] for review. Christiana will likely transport via the facility's w/c van. CM spoke to her son, Kareem, who reported being in support of this plan. CM continues to follow.
--- NOTE | 2020-09-02 10:43 | W.PM.PROGNOT ---
Date of Service Date of service: 09/02/20 Time of Service: 10:43 Assessment and Plan Assessment and plan (1) Fracture of hip, left, closed: Status: Acute Assessment and plan: POD#1 L. IT femur fracture repair. cont. P.T., analgesia, muscle relaxants. I will add Tramadol prn for pain control in order to reduce use of parenteral morphine Qualifiers: Encounter type: initial encounter Qualified Code(s): S72.002A - Fracture of unspecified part of neck of left femur, initial encounter for closed fracture (2) Parkinson disease: Status: Chronic Assessment and plan: stable, continue home medication followed by DR Peace (3) Overactive bladder: Status: Acute Assessment and plan: continue home medication (4) Hypothyroidism: Status: Chronic Assessment and plan: cont. current levothyroxine dose Subjective Subjective Interval history since last seen: POD #1 IM fixation of displaced L. IT femur fracture. Patient has done well getting up to the commode w/ partial wt bearing of her left leg. Her pain is fairly well controlled w/ Tylenol and small doses of morphine and prn dosing of valium for muscle spasm. I expect that she will require short term SNF placement and she seems agreeable to this although she wants to get back home. I told her that she is still in the acute phase of recovery from surgery and it is too early for SNF or discharge. She has the saeed still in place but Dr. Arambula wants this left in for today. We will address this tomorrow. Her Parkinsonism seems under control although she admits that at times when she loses her balance she can not control her gait. Exam Narrative Exam Narrative: Alert and oriented x 3 Lungs are clear Heart is regular Abdomen soft, nontender and nondistended L. hip with some mild edema and mild tenderness to palpation. Nursing reported that she had some sero-sanguinous oozing when the dressing was changed. Feet are warm to the touch, no calf tenderness or edema Objective Last Vital Signs Temp 37 C 09/02/20 07:51 Pulse 69 09/02/20 07:51 Resp 17 09/02/20 07:51 BP 124/75 09/02/20 07:51 Pulse Ox 90 L 09/02/20 07:51
--- NOTE | 2020-09-02 11:54 | W.PM.PROGNOT ---
Date of Service Date of service: 09/02/20 Time of Service: 09:54 Assessment and Plan Assessment and plan (1) Fracture of hip, left, closed: Status: Acute Assessment and plan: Christiana is doing well POD#1 s/p IMN fixation of left intertrochanteric hip fracture. She has made great gains in just under 24 hours. I encouraged her that this little movement that she has done is more than most and is a very encouraging sign. It will take some time for the acute pain with weight bearing to subside but putting weight on it at this point is a very good sign that she could return home. We will continue PT and work with nursing as she tolerates. Likely keep saeed today and d/c tomorrow. Continue with pain control. Dishcarge planning. DVT prophylaxis. Qualifiers: Encounter type: initial encounter Qualified Code(s): S72.002A - Fracture of unspecified part of neck of left femur, initial encounter for closed fracture Subjective Subjective Interval history since last seen: Christiana reports to be doing well. She denies much pain but has struggled with mobility. She has already been out of the bed with nursing to and from the commode. She finds walking difficult but is able to do it. She denies chest pain or SOB. No fevers or chills. No numbnes or tingling. No issues with the dressings. Exam Narrative Exam Narrative: Observed Christiana ambulate from commode to bed. Only tolerating short bursts of independent weight on the left leg but able to mobilize with minimal assist. In good spirits. NAD. AAOx3. Dressings c/d/i. Intact ADF/APF/EHL/FHL. Objective Last Vital Signs Temp 37 C 09/02/20 07:51 Pulse 69 09/02/20 07:51 Resp 17 09/02/20 07:51 BP 124/75 09/02/20 07:51 Pulse Ox 90 L 09/02/20 07:51
[2020-09-02] MEDS: Enoxaparin 40 MG/0.4 ML SYR SC (12:36)
[2020-09-02] MEDS: Normal Saline Flush 10 ML SYR IVP (12:47)
[2020-09-02] MEDS: Ondansetron 4 MG/2 ML VIAL IVP (12:47)
[2020-09-02] MEDS: diazePAM 2 MG TAB PO ×2 (16:59→21:11)
[2020-09-02] MEDS: Melatonin 3 MG TAB PO (21:12)
[2020-09-02] MEDS: Mirtazapine 15 MG TAB 7.5 MG PO (21:12)
[2020-09-03] MEDS: Carbidopa 25/Levodopa 100 TAB PO ×3 (06:10→15:59)
[2020-09-03] MEDS: Normal Saline Flush 10 ML SYR IVP ×5 (06:10→16:00)
[2020-09-03] MEDS: Levothyroxine 25 MCG TAB PO (06:10)
[2020-09-03 07:15] LABS: Abs Immature Grans 0.03 10^3/uL (0.0-0.06); Absolute Basophil Count 0.07 10^3/uL (0.0-0.2); Absolute Eosinophil Count 0.24 10^3/uL (0.0-0.7); Absolute Lymphocyte Count 1.39 10^3/uL (1.2-3.4); Basophils % 1.1; Eosinophils % 3.9; HCT 26.8 % (36.0-46.0); HGB 8.6 g/dL (11.2-15.7); Immature Grans % 0.5; Lymphocytes % 22.3; MCH 28.6 pg (27.0-33.0); MCHC 32.1 % (32.0-36.0); MPV 10.5 fL (8.0-11.0); Monocytes % 11.2; Nucleated RBC 0 %; Platelet Count 252 10^3/uL (130-400); RBC 3.01 10^6/uL (3.93-5.22); RDW 13.2 % (11.7-14.6); RDW-SD 43.2 fL; WBC 6.23 10^3/uL (4.4-10.8)
[2020-09-03 07:25] LABS: Anion Gap 3.1 mmol/L (3-11); BUN 10 mg/dL (7-18); CO2 26.9 mmol/L (21.0-32.0); CREATININE 0.68 mg/dL (0.55-1.02); Calcium 7.9 mg/dL (8.5-10.1); Chloride 109 mmol/L (98-107); Glucose 88 mg/dL (74-106); Potassium 3.9 mmol/L (3.5-5.1); Sodium 139 mmol/L (136-145)
[2020-09-03 07:40] VITALS: BP 144/72; PULSE 68; RESP 18; TEMP 36.8; O2SAT 93
[2020-09-03] MEDS: Normal Saline 500 ML 30 ML IV (08:53)
[2020-09-03] MEDS: diazePAM 2 MG TAB PO ×2 (08:54→20:25)
[2020-09-03] MEDS: ACETAMINOPHEN 1,000 MG/100 ML BTL 400 MG IVPB (08:54)
[2020-09-03] MEDS: Cholecalciferol (Vitamin D3) 1,000 UNIT TAB 1000 UNITS PO ×3 (08:54→20:25)
[2020-09-03] MEDS: Celecoxib 200 MG CAP PO ×2 (08:54→20:25)
[2020-09-03] MEDS: Mirabegron 25 MG TABCR PO (08:54)
[2020-09-03] MEDS: traMADol 50 MG TAB PO (09:02)
--- NOTE | 2020-09-03 09:56 | DSE_ITS ---
Documented by User: Vania Hsu NP 09/03/20 13:10 Date of service: 09/03/20 Time of Service: 09:56 DS: Diagnosis Discharge Diagnosis (1) Fracture of hip, left, closed: Status: Resolved (2) Parkinson disease: Status: Chronic (3) Overactive bladder: Status: Chronic (4) Hypothyroidism: Status: Chronic Discharge Plan Disposition Patient Disposition: SNF (LEVEL 1) [facility] Condition: Stable Discharge Details Reason For Visit: LEFT HIP FRACTURE Admit Date/Time: 08/31/20 16:15 Admit Provider: Sidney Felix Attending Provider: Sidney Felix Primary Care Provider: Shara Jimenez Hospital Course Hospital Course: 75 y.o female with PMH of OA, Parkninsons, RLS, anxiety, depression, short-term memory loss, overactive bladder, presented to [facility] for left hip injury. She had a mechanical fall prior to admission work in the ED revealed a left hip fracture. Ortho was consulted and she was admitted to [facility] for further management. Left hip fracture was repaired on 09/01, she has been doing as expected. Pain has been controlled, bowel movement 2 days ago. She has been working with PT/OT, doing well. She is being transferred to H/R for further management. Home Meds and New Rx's Prescriptions: New celecoxib [Celebrex] 200 mg Capsule 200 mg PO BID Qty: 14 RF: 0 acetaminophen [Mapap Extra Strength] 500 mg Tablet 1,000 mg PO Q8H Qty: 0 RF: 0 nystatin 100,000 unit/gram Powder 1 applic topical BID Qty: 15 RF: 0 Continued furosemide 20 mg tablet 40 mg PO DAILY RF: 0 levothyroxine 25 mcg capsule 25 mcg PO DAILY RF: 0 mirtazapine 7.5 mg tablet 7.5 mg PO QHS Qty: 30 RF: 0 cholecalciferol (vitamin D3) 25 mcg (1,000 unit) capsule 25 mcg PO TID RF: 0 Saccharomyces boulardii [Daily Probiotic (S. boulardii)] 250 mg capsule 250 mg PO DAILY RF: 0 carbidopa-levodopa [Sinemet] 25-100 mg tablet 2 tab PO TID Qty: 540 RF: 3 melatonin 3 mg Tablet 3 mg PO HS RF: 0 Myrbetriq 25 mg Tablet Extended Release 24 Hr 25 mg PO DAILY RF: 0 multivit with min-folic acid 80 mcg Tablet,Chewable 1 tab PO DAILY RF: 0 Calcium Soft Chew 500-100-40 mg-unit-mcg Tablet,Chewable 1 tab PO DAILY RF: 0 Systane (PF) 0.4-0.3 % Dropperette RF: 0 oxybutynin chloride 5 mg tablet 5 mg PO BID RF: 0 Discontinued Forteo 20 mcg/dose (600mcg/2.4mL) Pen Injector 20 mcg SUBCUT DAILY RF: 0 glucose Tablet,Chewable 1 tab PO DAILY RF: 0 Discharge Instructions Instructions: Hip Fracture (ED) Additional Instructions: Total Hip Discharge Instructions Activity: You may bear weight as tolerated. You should use assistance at all times. It takes 6-8 weeks before the bone starts to heal more fully which is when the leg starts feeling much stronger. You may work on range of motion and strengthening. Dressing: Keep the surgical dressing in place for at least one week. After the first week it may be removed and replace with light gauze and tape or nothing or another Mepilex dressing. It may get wet after 3 days but avoid soaking the dressing. If it gets wet, just lightly pat dry. No dressing is required after 2 weeks and there are no sutures to remove Follow-up: 4 weeks from surgery If you have any acute concerns or questions, please do not hesitate to contact the office at [phone]. You may contact Dr. Arambula with any questions after hours through the hospital at [phone] or on his cell phone at [phone]. Referrals: Shara Jimenez [Primary Care Provider] - Stephan Arambula MD [ [facility] STAFF PHYSICIAN] - Activity:: walker Equipment/Supplies:: Walker Diet:: As Tolerated DS: Summary Status at Discharge Mental Status: mental status grossly normal Exam Const General: cooperative, healthy appearing, comfortable and no acute distress Orientation: alert, awake, oriented to person, oriented to place and confused (Of exact date) [facility] Head: normal to inspection, normocephalic and atraumatic Face and sinus: normal facial exam Mouth: moist mucous membranes Eyes General: appearance normal, both eyes and all related structures Alignment and Position: alignment normal Periorbital: periorbital findings normal Eyelids: eyelids normal Conjunctivae: conjunctivae normal Sclera: sclerae normal Cornea: corneas normal Pupils: PERRL EOM: EOM intact bilaterally Direct ophthalmoscopy: normal light reflex Neck Neck: normal visual inspection, full ROM, trachea midline, supple and nontender Resp Effort & Inspection: normal respiratory effort and able to speak in complete sentences Auscultation: clear to auscultation bilaterally Cardio Rate: regular rate Rhythm: regular rhythm GI Palpation: soft and nontender Back/Spine/Pelvis Back: No back tenderness Skin Lesions: other (surgical dressing clean and intact, no erythema or drainage) Neuro General: patient alert, patient awake, moves all extremities and no focal motor deficits Cognition: normal cognition Motor: muscle tone normal throughout Sensory Exam: no sensory deficits noted Extrem General: pedal edema on the right 1+ (Baseline per patient) Right upper extremity: normal to inspection, full ROM and normal capillary refill Left upper extremity: normal to inspection, full ROM and normal capillary refill Right lower extremity: full ROM and normal capillary refill Left lower extremity: normal capillary refill and hip/thigh Details: tenderness (Diffuse) and other (Slightly shortened and internally rotated minimally); no ecchymosis Psych Appearance: grossly normal Mental Status: mental status grossly normal DS: Data Vitals/I&O Vitals and I&O: Vital Signs Temperature 36.8 C 09/03/20 07:40 Temperature Source Tympanic 09/03/20 07:40 Pulse 68 09/03/20 07:40 Pulse Rhythm Regular 09/03/20 04:50 Respiratory Rate 18 09/03/20 07:40 Respiratory Effort Non-Labored 09/03/20 04:50 Respiratory Depth Normal 09/03/20 04:50 Respiratory Pattern Normal 09/03/20 04:50 Blood Pressure 144/72 H 09/03/20 07:40 Blood Pressure Mean 83 08/31/20 15:45 Blood Pressure Position Supine 08/31/20 14:02 Pulse Oximetry 93 09/03/20 07:40 Respiratory End-tidal CO2 27 09/01/20 14:42 Oxygen Delivery Method Room Air 09/03/20 07:40 Oxygen Flow Rate 0 09/03/20 07:40 Pain Level 6 09/03/20 09:02 Comment 09/03/20 07:14 Intake & Output 09/02/20 09/02/20 09/03/20 11:59 23:59 11:59 Intake Total 2371.250 / 4484.167 2112.917 / 4484.167 820.5 / 820.5 Output Total 550 / 2024 1475 / 5 675 / 675 Balance 1821.250 / 2459.167 637.917 / 2459.167 145.5 / 145.5 Intake: IV 1581.250 / 2974.167 1392.917 / 2974.167 100.5 / 100.5 Oral 790 / 1510 720 / 1510 720 / 720 Output: Urine 550 / 2024 1475 / 5 675 / 675 Other: Urine Color Straw Pale Yellow Yellow Urine Appearance Clear Clear Clear Stool Size Moderate Stool Characteristics Formed Hard Brown Data Completed and Pending Labs on day of discharge: Labs from last 24 hours 09/03/20 09/03/20 08/31/20 06:25 06:25 17:15 WBC 6.23 RBC 3.01 L Hgb 8.6 L D Hct 26.8 L D MCV 89.0 MCH 28.6 MCHC 32.1 RDW 13.2 Plt Count 252 MPV 10.5 Immature Gran % 0.5 Neutrophils % 61.0 Lymphocytes % 22.3 Monocytes % 11.2 Eosinophils % 3.9 Basophils % 1.1 Nucleated RBC % 0 Absolute Neutrophils 3.80 Absolute Lymphocytes 1.39 Absolute Monocytes 0.70 Absolute Eosinophils 0.24 Absolute Basophils 0.07 Sodium 139 Potassium 3.9 Chloride 109 H Carbon Dioxide 26.9 Anion Gap 3.1 BUN 10 Creatinine 0.68 Estimated GFR/1.73 m2 >= 60.00 Glucose 88 Calcium 7.9 L COVID-19 PCR Pending Nasopharyn COVID-19 PCR Pending Ref Test Perform Site Pending [facility] Medical History Adjustment disorder with mixed anxiety and depressed mood Arthritis Carpal tunnel syndrome Heart murmur Hypothyroidism Incontinence Intermediate coronary syndrome Knee pain, right Kyphosis Macular hole Mitral valve regurgitation Multinodular thyroid Osteoporosis Overactive bladder Palpitations Parkinsons disease Physical deconditioning Scoliosis Seborrheic keratoses Short-term memory loss Tinea corporis Tinea pedis Surgical History H/O carpal tunnel repair H/O oophorectomy S/P appendectomy S/P eye surgery ambliopia S/P lumbar spine operation Family History Brother Parkinson disease Maternal Uncle Parkinson disease Paternal Cousin Parkinson disease Other Diabetes Stroke Social History Smoking/Tobacco Use Status: Former Tobacco Use Smoking risk assessment performed?: Yes Alcohol Intake: current Alcohol Intake frequency: holidays/special occasions only Drug use: Never Substance use type: does not use Household members: none Seatbelt use: always Do you feel safe at home: Yes Do you feel safe in your relationship?: Yes Documented by User: Marni Nielson NP 09/04/20 15:07 Date of service: 09/04/20 Time of Service: 14:11 DS: Diagnosis Discharge Diagnosis (1) Fracture of hip, left, closed: Start date: 09/04/20 Start time: 14:11 Status: Resolved Asessment and Plan: POD 4, continue bowel regimen, pain regimen, doing as expected Transfer to H/R (2) Parkinson disease: Start date: 09/04/20 Start time: 14:12 Status: Chronic Asessment and Plan: Followed by erik Tijerina continue current regimen (3) Hypothyroidism: Start date: 09/04/20 Start time: 14:12 Status: Chronic Asessment and Plan: Continue current dose synthroid, stable in April above case discussed with Dr. Mott who is in agreement. Discharge Plan Disposition Patient Disposition: SNF (LEVEL 1) [facility] Condition: Stable Discharge Details Reason For Visit: LEFT HIP FRACTURE Admit Date/Time: 08/31/20 16:15 Admit Provider: Sidney Felix Attending Provider: Sidney Felix Primary Care Provider: Shara Jimenez Hospital Course Hospital Course: 75 y.o female with PMH of OA, Parkninsons, RLS, anxiety, depression, short-term memory loss, overactive bladder, presented to [facility] for left hip injury. She had a mechanical fall prior to admission work in the ED revealed a left hip fracture. Ortho was consulted and she was admitted to [facility] for further management. Left hip fracture was repaired on 09/01, she has been doing as expected. Pain has been controlled, bowel movement 2 days ago. She has been working with PT/OT, doing well. She is being transferred to H/R for further management. Home Meds and New Rx's Prescriptions: New celecoxib [Celebrex] 200 mg Capsule 200 mg PO BID Qty: 14 RF: 0 acetaminophen [Mapap Extra Strength] 500 mg Tablet 1,000 mg PO Q8H Qty: 0 RF: 0 nystatin 100,000 unit/gram Powder 1 applic topical BID Qty: 15 RF: 0 Continued furosemide 20 mg tablet 40 mg PO DAILY RF: 0 levothyroxine 25 mcg capsule 25 mcg PO DAILY RF: 0 mirtazapine 7.5 mg tablet 7.5 mg PO QHS Qty: 30 RF: 0 cholecalciferol (vitamin D3) 25 mcg (1,000 unit) capsule 25 mcg PO TID RF: 0 Saccharomyces boulardii [Daily Probiotic (S. boulardii)] 250 mg capsule 250 mg PO DAILY RF: 0 carbidopa-levodopa [Sinemet] 25-100 mg tablet 2 tab PO TID Qty: 540 RF: 3 melatonin 3 mg Tablet 3 mg PO HS RF: 0 Myrbetriq 25 mg Tablet Extended Release 24 Hr 25 mg PO DAILY RF: 0 multivit with min-folic acid 80 mcg Tablet,Chewable 1 tab PO DAILY RF: 0 Calcium Soft Chew 500-100-40 mg-unit-mcg Tablet,Chewable 1 tab PO DAILY RF: 0 Systane (PF) 0.4-0.3 % Dropperette RF: 0 oxybutynin chloride 5 mg tablet 5 mg PO BID RF: 0 Discontinued Forteo 20 mcg/dose (600mcg/2.4mL) Pen Injector 20 mcg SUBCUT DAILY RF: 0 glucose Tablet,Chewable 1 tab PO DAILY RF: 0 Discharge Instructions Instructions: Hip Fracture (ED) Additional Instructions: Total Hip Discharge Instructions Activity: You may bear weight as tolerated. You should use assistance at all times. It takes 6-8 weeks before the bone starts to heal more fully which is when the leg starts feeling much stronger. You may work on range of motion and strengthening. Dressing: Keep the surgical dressing in place for at least one week. After the first week it may be removed and replace with light gauze and tape or nothing or another Mepilex dressing. It may get wet after 3 days but avoid soaking the dressing. If it gets wet, just lightly pat dry. No dressing is required after 2 weeks and there are no sutures to remove Follow-up: 4 weeks from surgery If you have any acute concerns or questions, please do not hesitate to contact the office at [phone]. You may contact Dr. Arambula with any questions after hours through the hospital at [phone] or on his cell phone at [phone]. Referrals: Shara Jimenez [Primary Care Provider] - Stephan Arambula MD [ [facility] STAFF PHYSICIAN] - Activity:: walker Equipment/Supplies:: Walker Diet:: As Tolerated DS: Summary Status at Discharge Functional status at discharge: wheelchair bound Overall status at discharge: patient is not back to baseline Speech and Movement: speech and movement normal Mood: congruent mood Affect: normal affect Exam Psych Speech and Movement: speech and movement normal Mood: congruent mood Affect: normal affect [facility] Medical History Adjustment disorder with mixed anxiety and depressed mood Arthritis Carpal tunnel syndrome Heart murmur Hypothyroidism Incontinence Intermediate coronary syndrome Knee pain, right Kyphosis Macular hole Mitral valve regurgitation Multinodular thyroid Osteoporosis Overactive bladder Palpitations Parkinsons disease Physical deconditioning Scoliosis Seborrheic keratoses Short-term memory loss Tinea corporis Tinea pedis Surgical History H/O carpal tunnel repair H/O oophorectomy S/P appendectomy S/P eye surgery ambliopia S/P lumbar spine operation Family History Brother Parkinson disease Maternal Uncle Parkinson disease Paternal Cousin Parkinson disease Other Diabetes Stroke Social History Smoking/Tobacco Use Status: Former Tobacco Use Smoking risk assessment performed?: Yes Alcohol Intake: current Alcohol Intake frequency: holidays/special occasions only Drug use: Never Substance use type: does not use Household members: none Seatbelt use: always Do you feel safe at home: Yes Do you feel safe in your relationship?: Yes
--- NOTE | 2020-09-03 10:24 | PT.INTREAT ---
Date of service: 09/03/20 Time of Service: 09:40 PT Notes Visit Reasons: LEFT HIP FRACTURE Inpatient Physical Therapy Treatment Note [facility] Date: 09/03/2020 PRECAUTIONS: Fall, WBAT L LE SUBJECTIVE: Christiana states that she is very stiff today. She feels that she may need SNF placement prior to going home, although indicates that she is anxious about transferring over to rehab level facility. OBJECTIVE: PAIN: Patient c/o L LE pain with ther ex and gait training BED MOBILITY/TRANSFERS Sit-supine: SBA with HOB flat Sit-stand: CGA in a.m.; S in p.m. Stand-sit: CGA in a.m.; SBA in p.m. GAIT Assistive Device: FWW Weight bearing: WBAT L Assist: CGA in a.m.; SBA in p.m. Distance: 40' in a.m.; 15' +30' in p.m. Deviation: Short step height and length THEREX: Patient was instructed in a LE strengthening and stabilization program, in a long-sitting position in a.m. and a supine position in p.m., as per flow sheet. She requires assist for heel slide, hip abduction, and SLR exercises due to weakness and pain. TOILETING: Patient toileted with SBA for transfers ASSESSMENT: Patient tolerated session with complaint of increased pain in L hip with gait training in a.m., although indicates relief from gait training in p.m. She was able to tolerate a progression in gait distance with FWW support and SBA. She would benefit from continued gait and transfer training as well as lower extremity strengthening for improved mobility. PLAN: Continue with gait and transfer training as well as strengthening TREATMENT CODE/TIME: Session 1: 25 minutes; [id number], [id number] Session 2: 35 minutes; [id number], [id number]
[2020-09-03] MEDS: Nystatin POWDER 15 GM JAR TP ×2 (10:48→20:27)
[2020-09-03 10:59] LABS: COVID-19 RT-PCR UVMMC Result Negative (Negative)
[2020-09-03] MEDS: Ondansetron 4 MG/2 ML VIAL IVP ×2 (11:09→15:59)
[2020-09-03] MEDS: Enoxaparin 40 MG/0.4 ML SYR SC (11:52)
[2020-09-03] MEDS: Polyethylene Glycol 3350 17 GM PACKET PO (11:52)
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
--- NOTE | 2020-09-03 13:10 | PGE_ITS ---
Date of Service Date of service: 09/03/20 Time of Service: 13:10 Assessment and Plan Assessment and plan (1) Fracture of hip, left, closed: Status: Acute Assessment and plan: POD #2, progressing as expected. continue routine post operative care PT/OT pain management bowel management pulmonary toileting Qualifiers: Encounter type: initial encounter Qualified Code(s): S72.002A - Fracture of unspecified part of neck of left femur, initial encounter for closed fracture (2) Parkinson disease: Status: Chronic Assessment and plan: stable, continue home medication followed by DR Peace (3) Overactive bladder: Status: Acute Assessment and plan: continue home medication (4) Hypothyroidism: Status: Chronic Assessment and plan: TSH april 2020 2.06 continue synthroid. (5) DVT prophylaxis: Status: Acute Assessment and plan: enoxaparin daily (6) Discharge planning issues: Status: Acute Assessment and plan: case management following, plan for discharge to [facility] and rehab Sunday if bed available. discussed with Dr Garcia Subjective Subjective Patient reports: pain is less, nausea and afebrile; denies diarrhea, vomiting and shortness of breath Exam Const General: cooperative, healthy appearing, comfortable and no acute distress Orientation: alert, awake, oriented to person, oriented to place and confused (Of exact date) [facility] Head: normal to inspection, normocephalic and atraumatic Face and sinus: normal facial exam Mouth: moist mucous membranes Eyes General: appearance normal, both eyes and all related structures Alignment and Position: alignment normal Eyelids: eyelids normal Conjunctivae: conjunctivae normal Neck Neck: normal visual inspection, full ROM and supple Resp Effort & Inspection: normal respiratory effort and able to speak in complete sentences Auscultation: clear to auscultation bilaterally Cardio Rate: regular rate Rhythm: regular rhythm GI Palpation: soft and nontender Skin Lesions: other (surgical dressing clean and intact, no erythema or drainage) Neuro General: patient alert, patient awake, moves all extremities and no focal motor deficits Cognition: normal cognition Motor: muscle tone normal throughout Sensory Exam: no sensory deficits noted Extrem General: pedal edema on the right 1+ (Baseline per patient) Right upper extremity: normal to inspection, full ROM and normal capillary refill Left upper extremity: normal to inspection, full ROM and normal capillary refill Right lower extremity: full ROM and normal capillary refill Left lower extremity: normal capillary refill Psych Appearance: grossly normal Mental Status: mental status grossly normal Objective Last Vital Signs Temp 36.8 C 09/03/20 07:40 Pulse 68 09/03/20 07:40 Resp 18 09/03/20 07:40 BP 144/72 H 09/03/20 07:40 Pulse Ox 93 09/03/20 07:40 Laboratory Results - last 24 hr 08/31/20 09/03/20 09/03/20 17:15 06:25 06:25 WBC 6.23 RBC 3.01 L Hgb 8.6 L D Hct 26.8 L D MCV 89.0 MCH 28.6 MCHC 32.1 RDW 13.2 Plt Count 252 MPV 10.5 Immature Gran % 0.5 Neutrophils % 61.0 Lymphocytes % 22.3 Monocytes % 11.2 Eosinophils % 3.9 Basophils % 1.1 Nucleated RBC % 0 Absolute Neutrophils 3.80 Absolute Lymphocytes 1.39 Absolute Monocytes 0.70 Absolute Eosinophils 0.24 Absolute Basophils 0.07 Sodium 139 Potassium 3.9 Chloride 109 H Carbon Dioxide 26.9 Anion Gap 3.1 BUN 10 Creatinine 0.68 Estimated GFR/1.73 m2 >= 60.00 Glucose 88 Calcium 7.9 L COVID-19 PCR Negative Nasopharyn COVID-19 PCR Not Applicable Ref Test Perform Site [facility]
[2020-09-03] MEDS: Acetaminophen 500 MG TAB 1000 MG PO ×2 (15:59→23:42)
[2020-09-03 16:28] VITALS: BP 113/65; PULSE 70; RESP 18; TEMP 37.1; O2SAT 95
[2020-09-03 20:52] VITALS: BP 172/87; PULSE 67; RESP 18; TEMP 36.8; O2SAT 96
--- NOTE | 2020-09-03 21:12 | W.PM.PROGNOT ---
Date of Service Date of service: 09/03/20 Time of Service: 09:13 Assessment and Plan Assessment and plan (1) Fracture of hip, left, closed: Status: Acute Assessment and plan: Christiana is doing very well. She was able to walk some with nursing and with PT. She does have some apparent pain although she denies this. She doesn't fully trust the leg with weightbearing but she's making great gains. Continue withi PT. WBAT with assistive devices. DVT prophylaxis. NSAIDs for pain relief - Celecoxib. Discharge planning - may be able to go home with [facility] in another day or so. Qualifiers: Encounter type: initial encounter Qualified Code(s): S72.002A - Fracture of unspecified part of neck of left femur, initial encounter for closed fracture Subjective Subjective Interval history since last seen: Christiana reports to be doing well. She denies significant pain but does have a deep ache about the left thigh. She has also had some anxiety about the injury and surgery. So far, treated well with Diazepam and Tramadol. Labs stable. No issues with the wound. Exam Narrative Exam Narrative: Sitting up in the bed. LLE swollen but compresible. Dressings c/d/i. SILT DP/SP/Tib. +ADF/APF/EHL/FHL Objective Last Vital Signs Temp 36.8 C 09/03/20 20:52 Pulse 67 09/03/20 20:52 Resp 18 09/03/20 20:52 BP 172/87 H 09/03/20 20:52 Pulse Ox 96 09/03/20 20:52 Laboratory Results - last 24 hr 08/31/20 09/03/20 09/03/20 17:15 06:25 06:25 WBC 6.23 RBC 3.01 L Hgb 8.6 L D Hct 26.8 L D MCV 89.0 MCH 28.6 MCHC 32.1 RDW 13.2 Plt Count 252 MPV 10.5 Immature Gran % 0.5 Neutrophils % 61.0 Lymphocytes % 22.3 Monocytes % 11.2 Eosinophils % 3.9 Basophils % 1.1 Nucleated RBC % 0 Absolute Neutrophils 3.80 Absolute Lymphocytes 1.39 Absolute Monocytes 0.70 Absolute Eosinophils 0.24 Absolute Basophils 0.07 Sodium 139 Potassium 3.9 Chloride 109 H Carbon Dioxide 26.9 Anion Gap 3.1 BUN 10 Creatinine 0.68 Estimated GFR/1.73 m2 >= 60.00 Glucose 88 Calcium 7.9 L COVID-19 PCR Negative Nasopharyn COVID-19 PCR Not Applicable Ref Test Perform Site [facility]
[2020-09-03] MEDS: Mirtazapine 15 MG TAB 7.5 MG PO (21:42)
[2020-09-03] MEDS: Melatonin 3 MG TAB PO (21:42)
[2020-09-04 03:46] VITALS: BP 166/85; PULSE 65; RESP 17; TEMP 37; O2SAT 93
[2020-09-04] MEDS: Levothyroxine 25 MCG TAB PO (05:31)
[2020-09-04] MEDS: Carbidopa 25/Levodopa 100 TAB PO ×3 (05:31→17:14)
[2020-09-04] MEDS: traMADol 50 MG TAB PO (06:51)
[2020-09-04 08:05] VITALS: BP 131/73; PULSE 66; RESP 15; TEMP 36.6; O2SAT 92
[2020-09-04 08:12] LABS: COVID-19 RT-PCR UVMMC Result Negative (Negative)
[2020-09-04] MEDS: Acetaminophen 500 MG TAB 1000 MG PO ×3 (08:28→23:50)
[2020-09-04] MEDS: Mirabegron 25 MG TABCR PO (08:28)
[2020-09-04] MEDS: Celecoxib 200 MG CAP PO ×2 (08:28→21:00)
[2020-09-04] MEDS: Cholecalciferol (Vitamin D3) 1,000 UNIT TAB 1000 UNITS PO ×3 (08:28→21:00)
[2020-09-04] MEDS: Polyethylene Glycol 3350 17 GM PACKET PO (08:29)
[2020-09-04] MEDS: Nystatin POWDER 15 GM JAR TP ×2 (08:29→21:01)
--- NOTE | 2020-09-04 11:31 | PT.INTREAT ---
PT Notes Visit Reasons: LEFT HIP FRACTURE Inpatient Physical Therapy Treatment Note [facility] Date: 09/04/20 PRECAUTIONS:WBAT L LE SUBJECTIVE: Pt reports that she experiences most of her discomfort when she is lying in bed. She states her hip is stiff to begin with and tehn once she walks it gets better. OBJECTIVE: Sit-stand: CGA Stand-sit: SBA GAIT Assistive Device: FWW Weight bearing: WBAT L LE Assist: SBA Distance: 45ftx2 THEREX: Pt completed LE and UE ther ex as per flow sheet.Pt required assist with the L LE with hip abd and flexion. ASSESSMENT: Pt tolerated today's session well. Pt was motivated for PT. PLAN: Cont as per PT POC as per wilfredo. TREATMENT CODE/TIME: 07-17:25 (25) JANA ESTEVEZ
[2020-09-04] MEDS: Enoxaparin 40 MG/0.4 ML SYR SC (11:46)
--- NOTE | 2020-09-04 12:01 | W.PM.PROGNOT ---
Date of Service Date of service: 09/04/20 Time of Service: 10:02 Assessment and Plan Assessment and plan (1) Fracture of hip, left, closed: Status: Acute Assessment and plan: Christiana is doing very well. She was able to walk some with nursing and with PT. She does have some apparent pain although she denies this. She doesn't fully trust the leg with weightbearing but she's making great gains. Continue withi PT. WBAT with assistive devices. DVT prophylaxis. NSAIDs for pain relief - Celecoxib. Discharge planning - SNF tomorrow. F/U in 4 weeks. I will updat discharge document. Qualifiers: Encounter type: initial encounter Qualified Code(s): S72.002A - Fracture of unspecified part of neck of left femur, initial encounter for closed fracture Subjective Subjective Patient reports: no new complaints Interval history since last seen: Able to mobilize with nursing and PT staff. Pain controlled. No new issues. Exam Narrative Exam Narrative: NAD. AAOx3 LLE dressing c/d/i SILT DP/SP/Tib. +ADF/APF/EHL/FHL + DP/PT Minimal discomfort with hip internal and external rotation Objective Last Vital Signs Temp 36.6 C 09/04/20 08:05 Pulse 66 09/04/20 08:05 Resp 15 09/04/20 08:05 BP 131/73 09/04/20 08:05 Pulse Ox 92 09/04/20 08:05 Laboratory Results - last 24 hr 09/03/20 12:35 COVID-19 PCR Negative Nasopharyn COVID-19 PCR Not Applicable Ref Test Perform Site [place] [facility]
[2020-09-04 12:45] VITALS: BP 113/68; PULSE 83; RESP 18; TEMP 36.4; O2SAT 92
--- NOTE | 2020-09-04 13:54 | PGE_ITS ---
Date of Service Date of service: 09/04/20 Time of Service: 13:55 Assessment and Plan Assessment and plan (1) Fracture of hip, left, closed: Start date: 09/04/20 Start time: 13:57 Status: Acute Assessment and plan: POD #3, progressing as expected. continue routine post operative care PT/OT pain management bowel management pulmonary toileting Qualifiers: Encounter type: initial encounter Qualified Code(s): S72.002A - Fracture of unspecified part of neck of left femur, initial encounter for closed fracture (2) Parkinson disease: Start date: 09/04/20 Start time: 13:57 Status: Chronic Assessment and plan: stable, continue home medication followed by DR Peace (3) Overactive bladder: Start date: 09/04/20 Start time: 13:57 Status: Acute Assessment and plan: continue home medication (4) Hypothyroidism: Start date: 09/04/20 Start time: 13:57 Status: Chronic Assessment and plan: TSH april 2020 2.06 continue synthroid. (5) DVT prophylaxis: Start date: 09/04/20 Start time: 13:57 Status: Acute Assessment and plan: enoxaparin daily (6) Discharge planning issues: Start date: 09/04/20 Start time: 13:57 Status: Acute Assessment and plan: case management following, plan [facility] if bed available. discussed with Dr Mott who is in agreement. Subjective Subjective Patient reports: no new complaints Interval history since last seen: Pain controlled, tolerating diet, denies SOB, CP, N/V/D. Exam Narrative Exam Narrative: Alert and oriented x 3 Lungs are clear Heart is regular Abdomen soft, nontender and nondistended L. hip with some mild edema and mild tenderness to palpation. Feet are warm to the touch, no calf tenderness or edema Objective Last Vital Signs Temp 36.4 C L 09/04/20 12:45 Pulse 83 09/04/20 12:45 Resp 18 09/04/20 12:45 BP 113/68 09/04/20 12:45 Pulse Ox 92 09/04/20 12:45 Laboratory Results - last 24 hr 09/03/20 12:35 COVID-19 PCR Negative Nasopharyn COVID-19 PCR Not Applicable Ref Test Perform Site [facility]
--- NOTE | 2020-09-04 14:00 | DSE_ITS ---
Date of service: 09/04/20 Time of Service: 14:00 DS: Diagnosis Discharge Diagnosis (1) Fracture of hip, left, closed: Start date: 09/04/20 Start time: 14:00 Status: Acute Asessment and Plan: POD 5 doing as expected. Continue pain management Bowel regimen (2) Parkinson disease: Status: Chronic (3) Overactive bladder: Status: Acute (4) Hypothyroidism: Status: Chronic (5) DVT prophylaxis: Status: Acute (6) Discharge planning issues: Status: Acute Discharge Plan Disposition Condition: Stable Discharge Details Reason For Visit: LEFT HIP FRACTURE Admit Date/Time: 08/31/20 16:15 Admit Provider: Sidney Felix Attending Provider: Sidney Felix Primary Care Provider: Shara Jimenez Home Meds and New Rx's Prescriptions: New celecoxib [Celebrex] 200 mg Capsule 200 mg PO BID Qty: 14 RF: 0 acetaminophen [Mapap Extra Strength] 500 mg Tablet 1,000 mg PO Q8H Qty: 0 RF: 0 nystatin 100,000 unit/gram Powder 1 applic topical BID Qty: 15 RF: 0 Continued furosemide 20 mg tablet 40 mg PO DAILY RF: 0 levothyroxine 25 mcg capsule 25 mcg PO DAILY RF: 0 mirtazapine 7.5 mg tablet 7.5 mg PO QHS Qty: 30 RF: 0 cholecalciferol (vitamin D3) 25 mcg (1,000 unit) capsule 25 mcg PO TID RF: 0 Saccharomyces boulardii [Daily Probiotic (S. boulardii)] 250 mg capsule 250 mg PO DAILY RF: 0 carbidopa-levodopa [Sinemet] 25-100 mg tablet 2 tab PO TID Qty: 540 RF: 3 melatonin 3 mg Tablet 3 mg PO HS RF: 0 Myrbetriq 25 mg Tablet Extended Release 24 Hr 25 mg PO DAILY RF: 0 multivit with min-folic acid 80 mcg Tablet,Chewable 1 tab PO DAILY RF: 0 Calcium Soft Chew 500-100-40 mg-unit-mcg Tablet,Chewable 1 tab PO DAILY RF: 0 Systane (PF) 0.4-0.3 % Dropperette RF: 0 oxybutynin chloride 5 mg tablet 5 mg PO BID RF: 0 Discontinued Forteo 20 mcg/dose (600mcg/2.4mL) Pen Injector 20 mcg SUBCUT DAILY RF: 0 glucose Tablet,Chewable 1 tab PO DAILY RF: 0 Discharge Instructions Instructions: Hip Fracture (ED) Additional Instructions: Total Hip Discharge Instructions Activity: You may bear weight as tolerated. You should use assistance at all times. It takes 6-8 weeks before the bone starts to heal more fully which is when the leg starts feeling much stronger. You may work on range of motion and strengthening. Dressing: Keep the surgical dressing in place for at least one week. After the first week it may be removed and replace with light gauze and tape or nothing or another Mepilex dressing. It may get wet after 3 days but avoid soaking the dressing. If it gets wet, just lightly pat dry. No dressing is required after 2 weeks and there are no sutures to remove Follow-up: 4 weeks from surgery If you have any acute concerns or questions, please do not hesitate to contact the office at [phone]. You may contact Dr. Arambula with any questions after hours through the hospital at [phone] or on his cell phone at [phone]. Referrals: Shara Jimenez [Primary Care Provider] - Stephan Arambula MD [ [facility] STAFF PHYSICIAN] - Activity:: walker Equipment/Supplies:: Walker Diet:: As Tolerated DS: Data Vitals/I&O Vitals and I&O: Vital Signs Temperature 36.4 C L 09/04/20 12:45 Temperature Source Tympanic 09/04/20 12:45 Pulse 83 09/04/20 12:45 Pulse Rhythm Regular 09/04/20 02:15 Respiratory Rate 18 09/04/20 12:45 Respiratory Effort Non-Labored 09/04/20 02:15 Respiratory Depth Normal 09/04/20 02:15 Respiratory Pattern Normal 09/04/20 02:15 Blood Pressure 113/68 09/04/20 12:45 Blood Pressure Mean 83 08/31/20 15:45 Blood Pressure Position Supine 08/31/20 14:02 Pulse Oximetry 92 09/04/20 12:45 Respiratory End-tidal CO2 27 09/01/20 14:42 Oxygen Delivery Method Room Air 09/04/20 12:45 Oxygen Flow Rate 0 09/04/20 12:45 Pain Level 0 09/04/20 12:45 Comment 11/28/20 12:45 Intake & Output 09/03/20 09/04/20 09/04/20 23:59 11:59 23:59 Intake Total 740 / 2473.833 790 / 1240 450 / 1240 Output Total 1350 / 2500 950 / 1300 350 / 1300 Balance -610 / -26.167 -160 / -60 100 / -60 Intake: IV 20 / 313.833 Oral 720 / 2160 790 / 1240 450 / 1240 Output: Urine 1350 / 2500 950 / 1300 350 / 1300 Other: Urine Color Pale Yellow Pale Yellow Yellow Urine Appearance Clear Clear Clear Urine Odor Normal Normal Normal Comment Void x1 in the toilet. Pt. missed the hat; RN unable to determine urine amount. Void x1 in the bedside commode. Voiding Methods Bedside Commode Bedside Commode Bedside Commode Data Completed and Pending Labs on day of discharge: Labs from last 24 hours 09/03/20 12:35 COVID-19 PCR Negative Nasopharyn COVID-19 PCR Not Applicable Ref Test Perform Site [place] [facility] Medical History Adjustment disorder with mixed anxiety and depressed mood Arthritis Carpal tunnel syndrome Heart murmur Hypothyroidism Incontinence Intermediate coronary syndrome Knee pain, right Kyphosis Macular hole Mitral valve regurgitation Multinodular thyroid Osteoporosis Overactive bladder Palpitations Parkinsons disease Physical deconditioning Scoliosis Seborrheic keratoses Short-term memory loss Tinea corporis Tinea pedis Surgical History H/O carpal tunnel repair H/O oophorectomy S/P appendectomy S/P eye surgery ambliopia S/P lumbar spine operation Family History Brother Parkinson disease Maternal Uncle Parkinson disease Paternal Cousin Parkinson disease Other Diabetes Stroke Social History Smoking/Tobacco Use Status: Former Tobacco Use Smoking risk assessment performed?: Yes Alcohol Intake: current Alcohol Intake frequency: holidays/special occasions only Drug use: Never Substance use type: does not use Household members: none Seatbelt use: always Do you feel safe at home: Yes Do you feel safe in your relationship?: Yes
[2020-09-04 15:56] VITALS: BP 189/90; PULSE 82; RESP 16; TEMP 36.7; O2SAT 93
--- NOTE | 2020-09-04 17:19 | CMPROGNOTE_ITS ---
- If Service Date Differs Date of service: 09/04/20 Time of Service: 17:20 Care Management Progress Note S/O: Per report, Christiana is doing well, her pain is controlled and she is tolerating her diet. Her discharge plan is to transfer to [facility] tomorrow, which was coordinated ahead of time. She will have short term rehab there, prior to returning home. CM confirmed this plan with admissions at [facility], who requested documents be sent over today, which CM sent. CM coordinated transportation by [facility] w/c van for tomorrow morning at 11am. CM sent an authorization form to [facility], as she does not have [facility]. CM will continue to follow. A: 75 year old female admitted to [facility] 08/31/20 for Left Hip Fracture P: Christiana has been accepted at [facility] for transfer on Sunday. A repeat Covid swab was negative, and she will transport via [facility] W/C van. Lucía has support from her son and [id number] as well as a private caregiver in the home, though she resides alone. The caregiver will no longer be available by the time Lucía is discharged from rehab, however the family asserts they are willing to help care for her. CM will continue to support patient and family and assess for ongoing discharge planning concerns.
--- NOTE | 2020-09-04 17:19 | PDOC.CMPRO ---
- If Service Date Differs Date of service: 09/04/20 Time of Service: 17:20 Care Management Progress Note S/O: Per report, Christiana is doing well, her pain is controlled and she is tolerating her diet. Her discharge plan is to transfer to [facility] tomorrow, which was coordinated ahead of time. She will have short term rehab there, prior to returning home. CM confirmed this plan with admissions at [facility], who requested documents be sent over today, which CM sent. CM coordinated transportation by [facility] w/c van for tomorrow morning at 11am. CM sent an authorization form to [facility], as she does not have [facility]. CM will continue to follow. A: 75 year old female admitted to [facility] 08/31/20 for Left Hip Fracture P: Christiana has been accepted at [facility] for transfer on Sunday. A repeat Covid swab was negative, and she will transport via [facility] W/C van. Lucía has support from her son and [id number] as well as a private caregiver in the home, though she resides alone. The caregiver will no longer be available by the time Lucía is discharged from rehab, however the family asserts they are willing to help care for her. CM will continue to support patient and family and assess for ongoing discharge planning concerns.
[2020-09-04] MEDS: Mirtazapine 15 MG TAB 7.5 MG PO (21:12)
[2020-09-04] MEDS: Melatonin 3 MG TAB PO (21:12)
[2020-09-04 23:15] VITALS: PULSE 68
[2020-09-05 00:09] VITALS: BP 158/80; PULSE 71; RESP 16; TEMP 37.2; O2SAT 94
[2020-09-05] MEDS: Normal Saline Flush 10 ML SYR IVP ×3 (04:00→10:01)
[2020-09-05] MEDS: MORPHine 2 MG/ML SYR IVP ×2 (04:01→09:45)
[2020-09-05] MEDS: Carbidopa 25/Levodopa 100 TAB PO ×2 (05:46→10:01)
[2020-09-05] MEDS: Levothyroxine 25 MCG TAB PO (05:48)
[2020-09-05 08:05] VITALS: BP 159/75; PULSE 69; RESP 14; TEMP 36.1; O2SAT 95
[2020-09-05] MEDS: Polyethylene Glycol 3350 17 GM PACKET PO (08:41)
[2020-09-05] MEDS: Cholecalciferol (Vitamin D3) 1,000 UNIT TAB 1000 UNITS PO (08:42)
[2020-09-05] MEDS: Acetaminophen 500 MG TAB 1000 MG PO (08:42)
[2020-09-05] MEDS: Celecoxib 200 MG CAP PO (08:42)
[2020-09-05] MEDS: Mirabegron 25 MG TABCR PO (08:42)
[2020-09-05] MEDS: Nystatin POWDER 15 GM JAR TP (08:43)
[2020-09-05 09:28] VITALS: PULSE 76
[2020-09-05] MEDS: Lisinopril 5 MG TAB 2.5 MG PO (09:46)
[2020-09-05] MEDS: Ondansetron 4 MG/2 ML VIAL IVP ×2 (10:01→10:48)
--- NOTE | 2020-09-05 10:39 | PT.INNT ---
PT Notes Visit Reasons: LEFT HIP FRACTURE Pt reports that she is dizzy and not feeling well today. I attempted x2 to work with pt but she refused due ot not feeling well. Pt is being D/C at 11.
--- NOTE | 2020-09-05 16:44 | CMDISCH_ITS ---
- If Service Date Differs Date of service: 09/05/20 Time of Service: 16:44 LACE Index Scoring Tool - Questions: Length of Stay (in days): 4 - 6 Acuity (Admit via E.D.?): Yes E.D. Visits: 1 - Answers: Total Score: 8 Risk of Readmission: Low Risk Care Management Discharge Reason for Hospitalization: Left Hip Fracture Discharge Plan: Christiana will go to [facility] today. Her admission was scheduled ahead of time, making it possible for her to transfer on a Sunday. CM sent her discharge paperwork prior to her discharge. She will transport via [facility] w/c [place], coordinated by CM. She will have short term rehab prior to returning home. She will follow up with her PCP and discharge plan of care. Patient/Family Education Needs: Review discharge instructions regarding activity levels and medications, discussion of self care needs including ask me three. Services Needed at Discharge: Snf Facility ([facility]), Transportation ([facility] w/c van)
--- NOTE | 2020-09-08 12:15 | INDS_ITS ---
Date of service: 09/08/20 Time of Service: 12:16 PT Notes Visit Reasons: LEFT HIP FRACTURE Physical Therapy Inpatient Initial Evaluation Date: 09/08/2020 Date of service: 09/01/2020 through 09/04/2020 This is a clinical summary of care provided on the duration of dates listed above. No charge was made in the completion of this documentation. Referring Doctor: Stephan Arambula MD PT Orders: PT CONSULT: Status post Ortho surgery. Status post IMN fixation of left fracture Precautions: Fall. Standard. WBAT on left LE. Patient Profile/Admitting Diagnosis: Christiana is a 75-year-old female with chronic Parkinson's disease and hypothyroidism who presented to the ED on 08/31/2020 with chief complaint of left hip pain due to twisting and falling at home. She is diagnosed with left displaced intertrochanteric fracture status post ORIF using IMN on postoperative day 0. PMHX: Medical History Adjustment disorder with mixed anxiety and depressed mood Arthritis Carpal tunnel syndrome Heart murmur Hypothyroidism Incontinence Intermediate coronary syndrome Knee pain, right Kyphosis Macular hole Mitral valve regurgitation Multinodular thyroid Osteoporosis Overactive bladder Palpitations Parkinsons disease Physical deconditioning Scoliosis Seborrheic keratoses Short-term memory loss Tinea corporis Tinea pedis Surgical History H/O carpal tunnel repair H/O oophorectomy S/P appendectomy S/P eye surgery ambliopia S/P lumbar spine operation Social History/Home Situation: Lives alone in a private residence with a flight of steps to enter and bilateral rails. Son and son's family live across from her house. For the past 3 years Christiana has had a lady come in from 11 AM to 1 PM Mondays through Fridays to help with meals and house chores. Son and son's family are also moved with patient's care. Christiana indicates having had 2 falls in the past year. In modified independent for wheeled walker for short distances only. Equipment Owned/DME: [employer] Subjective: NT. See most recent OPTICAL INSTRUMENT REPAIRER notes. Objective: General Observation: NT. See most recent OPTICAL INSTRUMENT REPAIRER notes. Mental Status: NT. See most recent OPTICAL INSTRUMENT REPAIRER notes. Pain: NT. See most recent OPTICAL INSTRUMENT REPAIRER notes. Vital Signs: NT. See most recent OPTICAL INSTRUMENT REPAIRER notes. ROM: Right Upper Extremity: Shoulder Flexion WFL. Shoulder abduction WFL. Elbow flexion WFL. Wrist flexion WFL. Opening and closing of hand WFL. Left Upper Extremity: Shoulder Flexion WFL. Shoulder abduction WFL. Elbow flexion WFL. Wrist flexion WFL. Opening and closing of hand WFL. Right Lower Extremity: Hip flexion WFL. Hip abduction WFL. Knee flexion WFL. Ankle dorsiflexion WFL. Ankle plantarflexion WFL. Left Lower Extremity: Hip flexion unable to move at this time due to pain but tolerated edeg of bed sitting without undue pain. Hip abduction unable to move at this time due to pain but tolerated edeg of bed sitting without undue pain. Knee flexion WFL allows up to 80 degrees. Ankle dorsiflexion to neutral only. Ankle plantarflexion WFL. Strength: Right Upper Extremity: Shoulder flexors 4-/5. Shoulder abductors 4-/5. Elbow flexors 4-/5. Elbow extensors 4-/5. Sample Clerk strong. Left Upper Extremity: Shoulder flexors 4-/5. Shoulder abductors 4-/5. Elbow flexors 4-/5. Elbow extensors 4-/5. Sample Clerk strong. Right Lower Extremity: Hip flexors 4-/5. Hip abductors 4-/5. Knee flexors 4-/5. Knee extensors 4-/5. Ankle dorsiflexors 3-/5. Ankle plantarflexors 3-/5. Left Lower Extremity: Hip flexors 2-/5. Hip abductors 2-/5. Knee flexors 2-/5. Knee extensors 2-/5. Ankle dorsiflexors 3-/5. Ankle plantarflexors 4-/5. Sensation: Intact as to pain and pressure on bilateral lower extremities. Bed Mobility/Transfers: Sit to supine standby assist Sit to stand contact-guard assist Stand to sit contact-guard assist Bed to chair contact-guard assist Chair to bed contact-guard assist Gait: Assisted with level surface ambulation of 45 feet x 2 using front wheeled walker with WBAT on the left LE requiring standby assist. Balance: Static Sitting: Good Dynamic Sitting: Fair Static Standing: Poor Dynamic Standing: Poor Assessment: Christiana continues to demonstrates significant functional mobility decline requiring the assistance of 2 caregivers and the use of a walker for all mobility ADL performance, difficulty with walking, impairment with balance, generalized weakness, and increased risk for falls due to admitting diagnoses and postoperative status. She benefit from PT services to address her impairment level findings and functional limitations below. At skilled services patient will be at risk for further functional mobility decline, increased burden of care, and increased risk for falls. Patient continues to present with clinical signs and symptoms consistent with current/admitting diagnoses that have resulted to mobility limitations, gait instability, generalized weakness, and impairment of motor control as demonstrated by the following impairment level findings: 1. Decreased strength to B UEs/LE major muscle groups 2. Impaired sitting/standing balance 3. Impaired activity tolerance 4. Limitation of joint range of motion in left hip Impairments are continuing to contribute to the following functional limitations: 1. Dependent bed mobility skills 2. Increased dependence with transfers 3. Inability to safely ambulate without assistive device and physical assistance 4. Increase completion time for mobility ADL performance 5. Increased fall risk 6. Inability to negotiate steps alone safely Goals: Goals X1 week 1. Supine-Sit independent NOT MET 2. Sit-Supine independent NOT MET 3. Sit-Stand independent NOT MET 4. Stand-Sit independent NOT MET 5. Bed-Chair independent NOT MET 6. Chair-Bed independent NOT MET 7. Independent gait on level surface with use of least restrictive device for at least 30 feet without report of pain nor dyspnea NOT MET 8. Independent stair negotiation while holding onto bilateral rails for at least 12 steps without report of pain nor dyspnea NOT MET 10. Good static and dynamic standing balance/tolerance NOT MET DISCHARGE RECOMMENDATIONS: Patient will benefit from group home facility placement for continued skilled physical therapy services in order to progress mobility level, strength, and balance in preparation for a safe discharge to home. TREATMENT CODE/TIME: OK Thank you for the opportunity to participate in the care of this patient. Katelyn Pedro PT, DPT, CLT [facility] [place], [place]
== END 2020-09-05 11:04 | disposition skilled nursing facility (03) | DRG 482 ==
LOC: ER 16:37 → MS 17:30
PROVIDERS: Nurse Practitioner Acute Care; Physician Assistant; Student in an Organized Health Care Education/Training Program; Admitting Provider Internal Medicine; Emergency Provider Physician Assistant; PCP Nurse Practitioner; Visit Provider Internal Medicine
PROC: 0QS706Z Reposition Left Upper Femur with Intramedullary Internal Fixation Device, Open Approach (ICD-10-PCS; CPT 27245; principal; 2020-09-01 13:30)
DX: S72.142A Displaced intertrochanteric fracture of left femur, initial encounter for closed fracture (principal); G20 Parkinson's disease; G25.81 Restless legs syndrome; F41.9 Anxiety disorder, unspecified; F32.9 Major depressive disorder, single episode, unspecified; N32.81 Overactive bladder; R41.3 Other amnesia; W01.0XXA Fall on same level from slipping, tripping and stumbling without subsequent striking against object, initial encounter; E03.9 Hypothyroidism, unspecified; M19.90 Unspecified osteoarthritis, unspecified site; I34.0 Nonrheumatic mitral (valve) insufficiency; M41.9 Scoliosis, unspecified; M81.0 Age-related osteoporosis without current pathological fracture
CPT/HCPCS: 27245; 36415; 73552; 76942; 80048; 80053; 90662; 93005; 97110; 97163; 97530; 99222; 99223; 99232; 99233; 99239; 99253; J1650; NC; U0003; 70450; 71045; 73501; 73502; 81003; 83735; 85025; 85049; 93010; 94667; J0131; J0171; J0690; J1100; J1885; J2001; J2270; J2405; J2704; J3010; J3480

== ENCOUNTER 2020-09-07 15:07 | Outpatient (REF) | payer OTHER, SELFPAY ==
[2020-09-07 16:01] LABS: Abs Immature Grans 0.03 10^3/uL (0.0-0.06); Absolute Basophil Count 0.06 10^3/uL (0.0-0.2); Absolute Eosinophil Count 0.23 10^3/uL (0.0-0.7); Absolute Lymphocyte Count 1.45 10^3/uL (1.2-3.4); Absolute Monocyte Count 0.84 10^3/uL (0.1-0.8); Basophils % 0.8; Eosinophils % 3.2; HCT 26.9 % (36.0-46.0); HGB 8.6 g/dL (11.2-15.7); Immature Grans % 0.4; Lymphocytes % 20.1; MCH 29.2 pg (27.0-33.0); MCV 91.2 fL (80-95); MPV 9.7 fL (8.0-11.0); Monocytes % 11.7; Neutrophils % 63.8; Nucleated RBC 0 %; Platelet Count 393 10^3/uL (130-400); RBC 2.95 10^6/uL (3.93-5.22); RDW-SD 45.1 fL; WBC 7.21 10^3/uL (4.4-10.8)
[2020-09-07 19:21] LABS: Anion Gap 5.2 mmol/L (3-11); BUN 20 mg/dL (7-18); CO2 29.8 mmol/L (21.0-32.0); CREATININE 0.78 mg/dL (0.55-1.02); Calcium 8.5 mg/dL (8.5-10.1); Chloride 105 mmol/L (98-107); Glucose 101 mg/dL (74-106); Potassium 3.9 mmol/L (3.5-5.1); Sodium 140 mmol/L (136-145)
== END 2020-09-07 15:27 ==
LOC: LBN 15:07
PROVIDERS: PCP Nurse Practitioner; Visit Provider Family Medicine
DX: M81.0 Age-related osteoporosis without current pathological fracture (principal); G20 Parkinson's disease
CPT/HCPCS: 80048; 85025

== ENCOUNTER → 2020-09-15 19:00 | Outpatient (REF) | payer OTHER, SELFPAY ==
[2020-09-16 17:48] LABS: COVID-19 RT-PCR Result Not Detected ((See Note))
== END ==
LOC: LBN 19:00
PROVIDERS: PCP Nurse Practitioner; Visit Provider Nurse Practitioner Adult Health
DX: Z11.59 Encounter for screening for other viral diseases (principal)
CPT/HCPCS: U0003

== ENCOUNTER 2020-10-14 13:10 | Outpatient (CLI) | payer OTHER, SELFPAY ==
--- NOTE | 2020-10-14 10:15 | DI.RAD_ITS ---
EXAM: XR HIP LT AP LAT ONLY CLINICAL HISTORY: F/U FRACTURE. TECHNIQUE: 2D digital imaging was performed. COMPARISON: CR XR HIP LT COMPLETE AP PELVIS from 08/31/2020 FINDINGS: There is now lag screw across healing intertrochanteric fracture of the left hip supported by sander. F racture fragments are in satisfactory position. No radiographic evidence of osteomyelitis. IMPRESSION: DATA REPOSITORY: RADIATION DOSE DELIVERED:
== END 2020-10-14 13:30 ==
PROVIDERS: PCP Nurse Practitioner; Referring Provider Nurse Practitioner; Visit Provider Student in an Organized Health Care Education/Training Program
DX: S72.142A Displaced intertrochanteric fracture of left femur, initial encounter for closed fracture (principal); S72.002D Fracture of unspecified part of neck of left femur, subsequent encounter for closed fracture with routine healing; X58.XXXD Exposure to other specified factors, subsequent encounter
CPT/HCPCS: 73502

== ENCOUNTER → 2020-11-10 10:25 | Outpatient (BNVA) | payer OTHER, SELFPAY | PROVIDERS: PCP Nurse Practitioner; Referring Provider Nurse Practitioner; Visit Provider Psychiatry & Neurology Neurology | DX: G20 Parkinson's disease (principal); M41.9 Scoliosis, unspecified; G25.81 Restless legs syndrome; R13.10 Dysphagia, unspecified; N32.81 Overactive bladder; R41.3 Other amnesia | CPT/HCPCS: 99215 ==

== ENCOUNTER 2020-11-18 15:48 | Outpatient (REF) | payer OTHER, SELFPAY ==
[2020-11-18 18:06] LABS: HCT 37.9 % (36.0-46.0); HGB 12.5 g/dL (11.2-15.7); MCH 29.6 pg (27.0-33.0); MCV 89.8 fL (80-95); Platelet Count 383 10^3/uL (130-400); RBC 4.22 10^6/uL (3.93-5.22); RDW 12.9 % (11.7-14.6); RDW-SD 42.1 fL; WBC 10.18 10^3/uL (4.4-10.8)
[2020-11-18 19:33] LABS: ALT 15 U/L (14-59); AST 20 U/L (15-37); Alkaline Phosphatase 107 U/L (46-116); Anion Gap 7.4 mmol/L (3-11); BUN 17 mg/dL (7-18); Bilirubin, Total 0.3 mg/dL (0.2-1.0); CO2 31.6 mmol/L (21.0-32.0); CREATININE 0.8 mg/dL (0.55-1.02); Calcium 9.6 mg/dL (8.5-10.1); Chloride 102 mmol/L (98-107); Glucose 93 mg/dL (74-106); Potassium 4.3 mmol/L (3.5-5.1); Sodium 141 mmol/L (136-145); TSH (W/Ref FT4) 1.79 uIU/mL (0.36-3.74); Total Protein 7.6 g/dL (6.4-8.2)
== END 2020-11-18 15:49 | disposition home or self-care (01) ==
LOC: NCHCN 15:48
PROVIDERS: PCP Nurse Practitioner; Visit Provider Nurse Practitioner
DX: R03.0 Elevated blood-pressure reading, without diagnosis of hypertension (principal); E03.9 Hypothyroidism, unspecified; D64.9 Anemia, unspecified
CPT/HCPCS: 80053; 85027; 84443

== ENCOUNTER → 2020-11-25 10:36 | Outpatient (BNVA) | payer OTHER, SELFPAY | PROVIDERS: PCP Nurse Practitioner; Visit Provider Student in an Organized Health Care Education/Training Program | DX: S72.002D Fracture of unspecified part of neck of left femur, subsequent encounter for closed fracture with routine healing (principal); M76.892 Other specified enthesopathies of left lower limb, excluding foot; X58.XXXD Exposure to other specified factors, subsequent encounter ==

== ENCOUNTER → 2021-01-12 10:15 | Outpatient (BNVA) | payer OTHER, SELFPAY | PROVIDERS: PCP Nurse Practitioner; Visit Provider Psychiatry & Neurology Neurology | DX: R41.3 Other amnesia (principal); G20 Parkinson's disease; M41.9 Scoliosis, unspecified; G25.81 Restless legs syndrome; R13.10 Dysphagia, unspecified; N32.81 Overactive bladder | CPT/HCPCS: 99215 ==

== ENCOUNTER 2021-03-04 01:49 | Outpatient (CLI) | payer OTHER, SELFPAY ==
[2021-03-04 12:45] LABS: Vitamin B12 859 pg/mL (193-986)
== END 2021-03-04 01:50 | disposition home or self-care (01) ==
LOC: LBO 01:49
PROVIDERS: PCP Nurse Practitioner; Visit Provider Psychiatry & Neurology Neurology
DX: R41.3 Other amnesia (principal)
CPT/HCPCS: 36415; 82607

== ENCOUNTER → 2021-03-09 14:42 | Outpatient (BNVA) | payer OTHER, SELFPAY | PROVIDERS: PCP Nurse Practitioner; Referring Provider Nurse Practitioner; Visit Provider Psychiatry & Neurology Neurology | DX: G20 Parkinson's disease (principal); M41.9 Scoliosis, unspecified; G25.81 Restless legs syndrome; R13.10 Dysphagia, unspecified; N32.81 Overactive bladder; R41.3 Other amnesia | CPT/HCPCS: 99215 ==

== ENCOUNTER → 2021-04-28 07:16 | Outpatient (BNVA) | payer OTHER, SELFPAY ==
--- NOTE | 2021-06-09 13:29 | NS.NUTBLAN_ITS ---
Date of service: 06/09/21 Time of Service: 13:30 Nutritional Consult ASSESSMENT: spoke to Lucía and her care management coordinator Lou by phone today. Lucía has lost 15 lbs in last couple of months due to lack of appetite after having teeth pulled for new dentures. She also suffers from Parkinson's Dx, GERD, Osteoporosis, Dysphagia. She reports excessive saliva build up in mouth that causes gagging when using dentures. She also reports that she can only eat 3-4 bites of food before feeling nausea. She dislikes mushy foods. She also c/o constipation. Weight is 109 lbs, 62 inches, BMI 20 , Usual weight: 125 lbs. She reports depression. Meds: include remeron Estimated Nutrient Needs: 6150-9653 kcal, 60-70 g protein, 1500 ml fluid Suspect weight loss/lack of appetite tied into depression which was exacerbated by recent teeth removal. Also suspect dentures do not fit properly and will need adjusting. Meds for Parkinson's can also cause lack of appetite. Educated Lucía and Shara on starting to add more calories by drinking 1/2 cup of Boost Plus q 4 hours and increase juice intake to 24 ounces daily- along with bites of food at meals. This will provide 0120-1256 kcal and should help with weight maintenance. Will need 1500 calories for weight gain back to base line. NUTRITIONAL DIAGNOSIS: Moderate malnutrition in view of significant weight loss in last 90 days Inability to ingest adequate macro and micro nutrients. INTERVENTION: recommend drinking 4 ounces Boost Plus q 4 hours with total of 3 bottles per day with 24 ounces fruit juice, include bites of food at meals. MONITORING AND EVALUATION: Will call back next week to assess tolerance, weight Time Spent in Nutritional Counseling and Treatment: 30
--- NOTE | 2021-06-16 13:47 | W.NUTRFU ---
Date of service: 06/16/21 Time of Service: 13:47 Nutritional Follow up NOTE: Spoke with Lucía on phone. She reports dislike of boost but has increased her intake of solid foods. At this time, recommended reducing boost to 1 bottle daily and to add 1 Tbsp maple syrup to oatmeal daily. Wt: 108.5 lbs today. Able to maintain weight but has not gained much weight. Follow up call scheduled for 06/23/21. Time Spent in Nutritional Counseling and Treatment: 15
== END ==
PROVIDERS: PCP Nurse Practitioner; Referring Provider Nurse Practitioner; Visit Provider Psychiatry & Neurology Neurology
DX: R13.10 Dysphagia, unspecified (principal); G20 Parkinson's disease; M41.9 Scoliosis, unspecified; G25.81 Restless legs syndrome; N32.81 Overactive bladder; R41.3 Other amnesia
CPT/HCPCS: 99443

== ENCOUNTER → 2021-08-04 10:46 | Outpatient (BNVA) | payer MEDICARE, SELFPAY | PROVIDERS: PCP Nurse Practitioner; Referring Provider Nurse Practitioner; Visit Provider Psychiatry & Neurology Neurology | DX: R13.10 Dysphagia, unspecified (principal); G20 Parkinson's disease; M41.9 Scoliosis, unspecified; G25.81 Restless legs syndrome; N32.81 Overactive bladder; R41.3 Other amnesia | CPT/HCPCS: 99214 ==

== ENCOUNTER 2021-11-09 10:00 | Outpatient (RCR) | payer MEDICARE, SELFPAY ==
[2021-11-09] MEDS: ZOLEDRONIC ACID/MANNITOL/WATER 5 MG/100 ML BTL 300 MG IVPB (10:13)
[2021-11-09] MEDS: Normal Saline Flush 10 ML SYR IVP (10:14)
[2021-11-09 10:34] LABS: BUN 14 mg/dL (7-18); CREATININE 0.8 mg/dL (0.55-1.02); Calcium 8.8 mg/dL (8.5-10.1)
== END 2021-12-05 23:59 | disposition home or self-care (01) ==
LOC: INF 10:00
PROVIDERS: Internal Medicine; PCP Nurse Practitioner; Visit Provider Family Medicine
DX: M81.0 Age-related osteoporosis without current pathological fracture (principal)
CPT/HCPCS: 36415; 84520; 96365; 82310; 82565; J3489

== ENCOUNTER → 2021-11-16 11:13 | Outpatient (BNVA) | payer MEDICARE, SELFPAY | PROVIDERS: PCP Nurse Practitioner; Referring Provider Nurse Practitioner; Visit Provider Psychiatry & Neurology Neurology | DX: G25.81 Restless legs syndrome (principal); R41.3 Other amnesia; F41.8 Other specified anxiety disorders; N32.81 Overactive bladder; G20 Parkinson's disease; R13.10 Dysphagia, unspecified | CPT/HCPCS: 99215 ==

== ENCOUNTER 2022-01-03 01:49 | Outpatient (CLI) | payer MEDICARE, SELFPAY ==
--- NOTE | 2022-01-03 | DI.RAD_ITS ---
Exam(s) XR KNEE RT 3V AP,LAT,OLINDA EXAM: XR KNEE RT 3V AP,LAT,OLINDA CLINICAL HISTORY: RT KNEE PAIN M25.561. TECHNIQUE: 2D digital imaging was performed of the right knee. Three views obtained. AP, lateral an d PA tunnel views were obtained. COMPARISON: CR XR knee RT 3V AP,lat,olinda from 09/25/2018 FINDINGS: BONES: No acute fracture is present. No bony destructive lesion is seen. JOINTS: Tricompartment degenerative changes are present with joint space narrowing and periarticular spurring. Chondrocalcinosis in the femoral tibial joint is noted. There is a small joint effusion. SOFT TISSUE: Atherosclerosis is present. IMPRESSION: Moderately severe degenerative changes of the right knee. DATA REPOSITORY: RADIATION DOSE DELIVERED:
== END 2022-01-03 02:09 ==
PROVIDERS: PCP Nurse Practitioner; Visit Provider Nurse Practitioner Family
DX: M25.561 Pain in right knee (principal); M25.461 Effusion, right knee; M17.11 Unilateral primary osteoarthritis, right knee
CPT/HCPCS: 73562

== ENCOUNTER 2022-01-11 01:34 | Outpatient (CLI) | payer MEDICARE, SELFPAY ==
--- NOTE | 2022-01-11 07:00 | DI.US_ITS ---
Exam(s) US PELVIS TRANSVAGINAL EXAM: US PELVIS TRANSVAGINAL CLINICAL HISTORY: check anatomy and stripe,POSTMENOPAUSAL BLEEDING,N95.0 TECHNIQUE: Ultrasound of the pelvis was performed both transabdominal and transvaginal. COMPARISON: US US OR ANESTHESIA from 08/31/2020 FINDINGS: UTERUS: Nongravid and anteverted Measures 5 cm length x 2 cm AP x 3 cm wide. There are no uterine fibroids. Endometrial thickness measures less than 1 mm. There is no fluid in the endometrial canal. CERVIX: There are no obvious nabothian cysts. RIGHT OVARY: The right ovary is surgically absent. LEFT OVARY: Measures 2.2 x 2.2 x 1.4 cm Appears to contain a few small cyst but difficult to differentiate from adjacent slightly prominent l eft adnexal veins. CUL-DE-SAC: No free fluid evident. IMPRESSION: 1. Normal appearing uterus and age-appropriate endometrium. 2. Right ovary is surgically absent. 3. Small cysts noted in the left ovary. Recommend follow-up ultrasound examination in a few months t sea, given this finding in this age. No free fluid evident DATA REPOSITORY:
== END 2022-01-11 01:54 ==
PROVIDERS: PCP Nurse Practitioner Family; Visit Provider Obstetrics & Gynecology
DX: N95.0 Postmenopausal bleeding (principal); N83.292 Other ovarian cyst, left side; Z90.721 Acquired absence of ovaries, unilateral
CPT/HCPCS: 76830; 76856

== ENCOUNTER 2022-02-09 21:08 | Outpatient (REF) | payer MEDICARE, SELFPAY ==
[2022-02-09 15:35] LABS: TSH (W/Ref FT4) 2.15 uIU/mL (0.36-3.74)
== END 2022-02-09 21:09 | disposition home or self-care (01) ==
LOC: NCHCN 21:08
PROVIDERS: PCP Nurse Practitioner Family; Visit Provider Nurse Practitioner Family
DX: E03.9 Hypothyroidism, unspecified (principal)
CPT/HCPCS: 84443

== ENCOUNTER 2022-02-21 17:24 | Inpatient (IN) | payer MEDICARE, SELFPAY ==
[2022-02-21] VITALS (27 sets, daily range): BP systolic 96–156; BP diastolic 47–77; PULSE 60–89; RESP 12–20; TEMP 36–37; O2SAT 90–97; BMI 19.6
--- NOTE | 2022-02-21 17:45 | DI.RAD_ITS ---
Exam(s) XR HIP RT COMPLETE AP PELVIS EXAM: XR HIP RT COMPLETE AP PELVIS CLINICAL HISTORY: fall, R hip pain, r/o fx. TECHNIQUE: 2D digital imaging was performed. COMPARISON: CR XR HIP LT COMPLETE AP PELVIS from 08/31/2020 FINDINGS: Two views There is an acute intertrochanteric fracture of the right hip. Left hip hardware noted from repair o f prior intertrochanteric fracture (August 2020). No other acute pelvic fractures identified. Samuel tebroplasty cement noted within both right and left sides the sacrum. IMPRESSION: Acute intertrochanteric mildly displaced fracture of the right hip. DATA REPOSITORY: RADIATION DOSE DELIVERED:
--- NOTE | 2022-02-21 17:45 | RT.EKG_ITS ---
APPROVED REPORT Exam: Resting ECG Reason for Exam: fall Patient Location: E HR:82 bpm ECG Measurements Heart Rate 82 AXIS [place] 180 P 44 QRSd 101 QRS -12 QT 408 T 42 QTc 478 Conclusion Sinus rhythm...normal P axis, V-rate 60- 99 Probable left atrial enlargement...P >50mS, <-0.10mV V1 Low voltage, extremity leads...all extremity leads <0.5mV. Sinus. No STEMI. I have reviewed and interpreted ECG and agree with software generated interpretation. Consider anterior infarct...Q >30mS in V2-V5
--- NOTE | 2022-02-21 17:45 | DI.CT_ITS ---
Exam(s) CT HEAD CERVICAL SPINE WO EXAM: CT HEAD CERVICAL SPINE WO CLINICAL HISTORY: s/p fall, head injury, r/o acute process. TECHNIQUE: Imaging Protocol: Axial computed tomography images with coronal and sagittal reformatted images were created and reviewed COMPARISON: CT CT HEAD WO from 08/31/2020 FINDINGS: BRAIN: There are no skull fractures nor fluid in the visualized paranasal sinuses. There is no evidence of intracranial hemorrhage, mass effect, or shift of midline structures. There are no extra-axial fluid collections. The ventricles are not enlarged or shifted and there is no blo od within the ventricular system nor within the basal cisterns. Again noted is bilateral periventricular hypodensity consistent with chronic small-vessel white matte r disease, unchanged. No obvious new territorial infarction. CERVICAL SPINE: There is no evidence of fracture. No significant prevertebral soft tissue swelling. There is multilevel disc space narrowing in the mid-lower cervical spine and there is fusion across t he C 4-5 disc space evident as well as fusion across 1 of the facet joints at this level. There is m ultilevel facet arthropathy. There is an element of degenerative anterolisthesis of C7 upon T1, related to facet arthropathy and a pproximately 3 millimeters anterior slippage at this level. No other levels demonstrating listhesis. There is a subtle area of sclerosis in the left lamina of C2 vertebral body. Cannot exclude blastic metastases. On the lower most aspect of the field of view there is high density in the T5 vertebral body. Suspect that this is vertebroplasty cement. IMPRESSION: No acute intracranial findings on this noninfused CT scan of the brain.Chronic small-vessel white mat ter ischemic changes. No evidence of cervical spine fracture, malalignment, nor acute compromise of the cervical spinal can al. Multilevel degenerative disc disease and degenerative facet arthropathy. Mild degenerative anterolis thesis of C7 upon T1. RADIATION DOSE DELIVERED: 1,074.82mGy.cm Total DLP DATA REPOSITORY: All CT scans at this facility are submitted to the National Radiology Data Registry (NRDR) Dose Index Registry (DIR) with the [employer] ([employer]). RADIATION OPTIMIZATION: All CT scans at this facility use at least one of these dose optimization te chniques: automated exposure control; mA and/or kV adjustment per patient size (includes targeted exa ms where dose is matched to clinical indication); or iterative reconstruction.
--- NOTE | 2022-02-21 17:49 | DI.RAD_ITS ---
Exam(s) XR CHEST 1V IN DI DEPT EXAM: XR CHEST 1V IN DI DEPT CLINICAL HISTORY: s/p fall, r/o acute process. TECHNIQUE: 2D digital imaging was performed. COMPARISON: CR XR CHEST 1V IN DI DEPT from 08/31/2020 FINDINGS: Single AP portable view. Heart size upper normal, unchanged. Mediastinum not widened. Vertebroplasty cement is again noted i n multiple vertebral bodies in the mid and lower thoracic spine. No infiltrates nor pleural effusions. No pulmonary edema. No fractures evident. IMPRESSION: No acute pulmonary findings on this single AP portable view of the chest. DATA REPOSITORY: RADIATION DOSE DELIVERED: All CT scans at this facility use at least one of these dose optimization techniques: automated exposure control; mA and/or kV adjustment per patient size (includes targeted e xams where dose is matched to clinical indication); or iterative reconstruction.
--- NOTE | 2022-02-21 17:52 | W.ED.GENAD ---
Discharge Plan Disposition Patient Disposition: [facility] INPATIENT Condition: Stable Discharge Details Clinical Impression: Closed intertrochanteric fracture of right hip, Fall in home, Closed head injury without loss of consciousness Admit Date/Time: 02/21/22 19:33 Admit Provider: Jesse Mott Attending Provider: Jesse Mott Primary Care Provider: Margoth Allen ED Provider: Eliz Brown Discharge Data Discharge Date/Time-TO BE ENTERED AT DEPARTURE: 02/21/22 21:00 Medical Decision Making 77yo F w/ a h/o Parkinson's disease and Left Intramedullary Fixation of Proximal Femur Fracture in August 2020 presents for right hip pain after fall. Also reports head injury but no LOC, vomiting, headache or neck pain. Right lower extremity externally rotated and shortened. She is otherwise neurovascularly intact. Chest and abdomen nontender. No midline spinal tenderness. No obvious evidence of head trauma. Considering her age, will obtain a CT head and cervical spine, right hip and pelvis x-ray. Suspect she has a hip fracture so will obtain screening labs, EKG and chest x-ray. Hip x-ray notes right intertrochanteric hip fracture. Case reviewed with Dr. Arambula who notes that plan for likely OR tomorrow. Case discussed with hospitalist who accepts patient for admission. Remainder of imaging reviewed and negative. Labs reviewed. White blood cell count 16. Normal electrolytes. Urinalysis negative for infection. Patient endorsed to feeling dizzy after Dilaudid. She is hemodynamically stable. She states she has not eaten. Will provide IV fluid hydration and give something to eat. We will hold on additional narcotics for now. Discussed with nursing supervisor [employer] who will call anesthesia for hip block. Medical Records Medical records reviewed: Yes I reviewed the patient's medical records. Imaging Data Radiologic Study: Radiologist's impression: CT Head Without Contrast Exam date and time: 02/21/2022 18:20 Age: 77 years old Clinical indication: Other: S/P fall, head injury, R/O acute process TECHNIQUE: Imaging protocol: Computed tomography of the head without contrast. Radiation optimization: All CT scans at this facility use at least one of these dose optimization techniques: automated exposure control; mA and/or kV adjustment per patient size (includes targeted exams where dose is matched to clinical indication); or iterative reconstruction. Other contrast: s/p fall, head injury, r/o acute process; COMPARISON: CT HEAD WO 08/31/2020 15:04 FINDINGS: Brain: Atrophy and chronic appearing white matter changes. No edema or hemorrhage. Cerebral ventricles: No ventriculomegaly. Paranasal sinuses: No acute sinusitis. Mastoid air cells: No mastoid effusion. Orbital cavities: Presumed postsurgical changes in the left lens similar to prior. Bones/joints: No acute fracture. Soft tissues: No suspicious lesions.? IMPRESSION: No acute intracranial findings. CT Cervical Spine Without Contrast Exam date and time: 02/21/2022 18:20 Age: 77 years old Clinical indication: Other: S/P fall, head injury, R/O acute process TECHNIQUE: Imaging protocol: Computed tomography images of the cervical spine without contrast. Radiation optimization: All CT scans at this facility use at least one of these dose optimization techniques: automated exposure control; mA and/or kV adjustment per patient size (includes targeted exams where dose is matched to clinical indication); or iterative reconstruction. Other contrast: s/p fall, head injury, r/o acute process; COMPARISON: CT HEAD WO 08/31/2020 15:04 FINDINGS: Bones/joints: No acute fracture or subluxation. Degenerative appearing listhesis mild L3 over L4 C7 over T1. Chronic partial ankylosis at C4-C5. Dense calcification partially assessed within a T5 vertebral body. Unclear if this is a metastasis, large bone island or a post treatment finding. There is chronic mild loss of height at T3 and T4. Could be further worked with dedicated CT or MRI of the thoracic spine. Discs/Spinal canal/Neural foramina: Multilevel cervical degenerative changes without severe central canal stenosis. Thyroid: Heterogeneous thyroid gland. Follow-up as per institutional protocol. Lungs: No consolidation.? Soft tissues: No suspicious lesions.? IMPRESSION: 1. No cervical spine fracture. 2. Incidental findings as described. XR Chest Exam date and time: 02/21/2022 6:48 PM Age: 77 years old Clinical indication: Injury or trauma; Blunt trauma (contusions or hematomas); Injury date: 02/21/22; Patient HX: Fall, hip injury TECHNIQUE: Imaging protocol: XR of the chest. Views: 1 view. COMPARISON: CR XR CHEST 1V IN DI DEPT 08/31/2020 3:10 PM FINDINGS: Lungs: The lungs are clear. There is no pulmonary vascular congestion. Pleural spaces: There are no pleural effusions present. There is no evidence of pneumothorax. Heart/Mediastinum: The cardiomediastinal silhouette is within normal limits. Bones/joints: Again noted is vertebroplasty cement at multiple thoracic levels. There is mild broad-based dextroscoliosis centered at the lower thoracic spine. ?There is no evidence for displaced rib fracture. IMPRESSION: 1. No active cardiopulmonary disease identified. 2. No pneumothorax identified. XR Right Hip Exam date and time: 02/21/2022 6:38 PM Age: 77 years old Clinical indication: Other: Fall, R hip pain, R/O FX TECHNIQUE: Imaging protocol: XR Right hip. Views: 2 or 3 views hip with pelvis when performed. COMPARISON: None. FINDINGS: Bones/joints: There is a mildly comminuted acute intertrochanteric right hip fracture with mild coxa varus deformity with some degree of proximal migration of the right femur as well as up to 2 cm posterior displacement of the right femur. The right femoral head is well located within the right acetabulum. There is an intramedullary sander through the proximal aspect of the left femur, only partially imaged, with a single transverse fixating screw as well as a metallic pin through the left femoral neck, which appears intact. There is cement projecting at the right and left aspects of the sacrum. Both SI joints appear patent, with mild degenerative change of the left SI joint. Soft tissues: Unremarkable. IMPRESSION: 1. Mildly displaced and comminuted intertrochanteric fracture of the right hip as described above. 2. No evidence for subluxation of the right femoral head at the right hip. Lab Data Lab results reviewed: Yes I reviewed the patient's lab results. Labs: Laboratory Tests Range/Units 02/21/22 02/21/22 02/21/22 17:55 17:55 20:05 WBC (4.4-10.8) 10^3/uL 16.83 H RBC (3.93-5.22) 10^6/uL 4.02 Hgb (11.2-15.7) g/dL 11.9 Hct (36.0-46.0) % 35.7 L MCV (80-95) fL 89 MCH (27.0-33.0) pg 29.6 MCHC (32.0-36.0) % 33.3 RDW (11.7-14.6) % 12.5 Plt Count (130-400) 10^3/uL 299 MPV (8.0-11.0) fL 9.7 Immature Gran % 0.5 Neutrophils % 85.7 Lymphocytes % 5.8 Monocytes % 7.4 Eosinophils % 0.3 Basophils % 0.3 Nucleated RBC % (0.0-0.3) % 0.0 Absolute Neutrophils (1.2-6.7) 10^3/uL 14.42 H Absolute Lymphocytes (1.2-3.4) 10^3/uL 0.98 L Absolute Monocytes (0.1-0.8) 10^3/uL 1.25 H Absolute Eosinophils (0.0-0.7) 10^3/uL 0.05 Absolute Basophils (0.0-0.2) 10^3/uL 0.05 Sodium (136-145) mmol/L 136 Potassium (3.5-5.1) mmol/L 3.7 Chloride (98-107) mmol/L 99 Carbon Dioxide (21.0-32.0) mmol/L 28.2 Anion Gap (3-11) mmol/L 8.8 BUN (7-18) mg/dL 16 Creatinine (0.55-1.02) mg/dL 0.8 Estimated GFR/1.73 m2 (mL/min/1.73m2) >= 60.00 Glucose (74-106) mg/dL 115 H Calcium (8.5-10.1) mg/dL 8.2 L Total Bilirubin (0.2-1.0) mg/dL 0.5 AST (15-37) U/L 38 H ALT (14-59) U/L 18 Alkaline Phosphatase (46-116) U/L 71 Total Protein (6.4-8.2) g/dL 7.5 Albumin (3.4-5.0) g/dL 4.0 Urine Color (Yellow) Urine Clarity (Clear) Urine pH (5-8) Ur Specific [place] (1.005-1.025) Urine Protein (Negative) mg/dL Urine Ketones (Negative) mg/dL Urine Blood (Negative) Urine Nitrite (Negative) Urine Bilirubin (Negative) Urine Urobilinogen (Up TO 0.2) EU/dL Ur Leukocyte Esterase (Negative) Urine Glucose (Negative) mg/dL COVID-19 Source Nasal/Nares Range/Units 02/21/22 20:05 WBC (4.4-10.8) 10^3/uL RBC (3.93-5.22) 10^6/uL Hgb (11.2-15.7) g/dL Hct (36.0-46.0) % MCV (80-95) fL MCH (27.0-33.0) pg MCHC (32.0-36.0) % RDW (11.7-14.6) % Plt Count (130-400) 10^3/uL MPV (8.0-11.0) fL Immature Gran % Neutrophils % Lymphocytes % Monocytes % Eosinophils % Basophils % Nucleated RBC % (0.0-0.3) % Absolute Neutrophils (1.2-6.7) 10^3/uL Absolute Lymphocytes (1.2-3.4) 10^3/uL Absolute Monocytes (0.1-0.8) 10^3/uL Absolute Eosinophils (0.0-0.7) 10^3/uL Absolute Basophils (0.0-0.2) 10^3/uL Sodium (136-145) mmol/L Potassium (3.5-5.1) mmol/L Chloride (98-107) mmol/L Carbon Dioxide (21.0-32.0) mmol/L Anion Gap (3-11) mmol/L BUN (7-18) mg/dL Creatinine (0.55-1.02) mg/dL Estimated GFR/1.73 m2 (mL/min/1.73m2) Glucose (74-106) mg/dL Calcium (8.5-10.1) mg/dL Total Bilirubin (0.2-1.0) mg/dL AST (15-37) U/L ALT (14-59) U/L Alkaline Phosphatase (46-116) U/L Total Protein (6.4-8.2) g/dL Albumin (3.4-5.0) g/dL Urine Color (Yellow) Annie Urine Clarity (Clear) Clear Urine pH (5-8) 7.0 Ur Specific [place] (1.005-1.025) 1.020 Urine Protein (Negative) mg/dL Negative Urine Ketones (Negative) mg/dL 15 H Urine Blood (Negative) Negative Urine Nitrite (Negative) Negative Urine Bilirubin (Negative) Negative Urine Urobilinogen (Up TO 0.2) EU/dL 0.2 Ur Leukocyte Esterase (Negative) Negative Urine Glucose (Negative) mg/dL Negative COVID-19 Source ECG Data Attestation: I personally reviewed and interpreted this ECG (s) as follows: Interpretation: Rate of 82, sinus, no STEMI. HPI General Mode of arrival: EMS. Date/Time Provider Initiated Documentation: 02/21/22 17:35. Limitations to Documentation: no limitations. Information obtained by: patient. HPI Narrative: Patient is a 77-year-old female with a history of Parkinson's disease with Left Intramedullary Fixation of Proximal Femur Fracture in August 2020 presents with right hip pain after fall from standing height prior to arrival. Patient states she was walking when she lost her balance and fell onto her right hip. She states she chronically has balance issues. She denies dizziness prior to fall. She states she also hit the top of her head on the ground. She denies LOC, head, vomiting or neck pain. She states she also hit her right elbow and initially had pain but denies any elbow pain at present. She states she has chronic heel and foot swelling but states this is no worse than usual. She was given fentanyl en route per EMS with some relief. She denies any chest pain, shortness of breath, abdominal pain or back pain. Related Data Home Medications Medication Instructions Recorded Confirmed furosemide 20 mg tablet 40 mg PO DAILY 08/26/18 02/21/22 levothyroxine 25 mcg capsule 25 mcg PO DAILY 08/26/18 02/21/22 multivitamin with minerals-folic 1 tab PO DAILY 08/31/20 02/21/22 acid 80 mcg chewable tablet mirtazapine 7.5 mg tablet 15 mg PO QHS 01/12/21 02/21/22 calcium citrate 315 mg 1 tab PO DAILY 08/04/21 02/21/22 calcium-vitamin D3 6.25 mcg (250 unit) tablet carbidopa 25 mg-levodopa 100 mg 2 tab PO TID #540 tabs 08/04/21 02/21/22 tablet (Sinemet) cholecalciferol (vitamin D3) 25 2,000 unit PO BID 08/04/21 02/21/22 mcg (1,000 unit) capsule docusate sodium 100 mg capsule 100 mg PO .QOD 08/04/21 02/21/22 entacapone 200 mg tablet 200 mg PO TID #270 tabs 08/04/21 02/21/22 hydroxyzine HCl 10 mg tablet 10 mg PO QHS PRN itching or 08/04/21 02/21/22 anxiety or insomnia #90 tabs nystatin 100,000 unit/gram topical 1 applic topical BID PRN 08/04/21 02/21/22 powder omeprazole 20 mg capsule,delayed 20 mg PO DAILY #90 caps 08/04/21 02/21/22 release peg 400-propylene glycol (PF) 0.4 1 drp ophthalmic (eye) TID 08/04/21 02/21/22 %-0.3 % eye drops in a dropperette (Systane (PF)) methylphenidate HCl 5 mg tablet 2.5 mg PO BID #30 tabs 11/16/21 11/16/21 sertraline 50 mg tablet 50 mg PO DAILY 01/17/22 02/21/22 acetaminophen 500 mg tablet 1,000 mg PO Q8H PRN 02/21/22 02/21/22 Previous Rx's Medication Instructions Recorded carbidopa 25 mg-levodopa 100 mg 2 tab PO TID #540 tabs 08/04/21 tablet (Sinemet) entacapone 200 mg tablet 200 mg PO TID #270 tabs 08/04/21 hydroxyzine HCl 10 mg tablet 10 mg PO QHS PRN itching or 08/04/21 anxiety or insomnia #90 tabs omeprazole 20 mg capsule,delayed 20 mg PO DAILY #90 caps 08/04/21 release methylphenidate HCl 5 mg tablet 2.5 mg PO BID #30 tabs 11/16/21 General Stated Complaint: Orthopedic ALVINA: 3 Review of Systems All systems reviewed & are unremarkable except as noted in HPI and below Constitutional Constitutional: Denies chills, Denies excessive sweating, Denies fatigue, Denies fever(s), Denies weakness and Denies weight loss Eyes Eyes: Reports system reviewed and no additional complaints, except as documented and Denies blurry vision ENT Ears, Nose, Mouth, and Throat: Denies vertigo, Denies dizziness, Denies otalgia, Denies nasal congestion, Denies sore throat and Denies throat swelling Cardiovascular Cardiovascular: Denies chest pain, Denies syncope, Denies rapid heart rate and Denies dyspnea Respiratory Respiratory: Denies chest congestion, Denies cough, Denies pain on inspiration and Denies dyspnea Gastrointestinal Gastrointestinal: Denies abdominal pain, Denies diarrhea and Denies vomiting Genitourinary Genitourinary: Denies hematuria, Denies dysuria and Denies flank pain Musculoskeletal Musculoskeletal: Denies back pain and Denies joint swelling Comments: Right hip pain Integumentary/Breasts Skin/Breast: Denies lesions and Denies rash Neurologic Neurologic: Denies behavioral changes, Denies confusion, Denies vertigo, Denies dizziness, Denies syncope, Denies localized weakness and Denies weakness Psychiatric Psychiatric: Denies behavioral changes, Denies confusion and Denies depression Endocrine Endocrine: Denies excessive sweating and Denies fatigue Hematologic/Lymphatic Hematologic/Lymphatic: Denies easy bruising and Denies lymphadenopathy Allergic/Immunologic Allergic/Immunologic: Denies throat swelling PFSH All Active Problems (Updated 02/23/22 @ 09:31 by Eliz Brown DO) Closed head injury without loss of consciousness (Acute) GERD (gastroesophageal reflux disease) (Chronic) Depression (Chronic) Constipation (Acute) Pain (Acute) Closed intertrochanteric fracture of right hip (Acute) Fall in home (Acute) Vaginal discharge, bloody (Acute) Post-menopausal bleeding (Acute) Tendinitis involving left hip abductors (Acute) Discharge planning issues (Acute) DVT prophylaxis (Acute) Hypothyroidism (Chronic) Overactive bladder (Chronic) Short-term memory loss (Acute) Adjustment disorder with mixed anxiety and depressed mood (Acute) Abnormal sensation of buttocks (Acute) Dysphagia (Acute) RLS (restless legs syndrome) (Acute) Scoliosis (Acute) Parkinson disease (Chronic) Osteoarthritis of right knee (Chronic) Medical History Arthritis Carpal tunnel syndrome Heart murmur Incontinence Intermediate coronary syndrome Knee pain, right Kyphosis Macular hole Mitral valve regurgitation Multinodular thyroid Osteoporosis Palpitations Parkinsons disease Physical deconditioning Seborrheic keratoses Tinea corporis Tinea pedis Surgical History H/O carpal tunnel repair H/O oophorectomy S/P appendectomy S/P eye surgery ambliopia S/P lumbar spine operation Family History Brother Parkinson disease Maternal Uncle Parkinson disease Paternal Cousin Parkinson disease Other Diabetes Stroke Social History Smoking/Tobacco Use Status: Former Tobacco Use Smoking risk assessment performed?: Yes Alcohol Intake: current Alcohol Intake frequency: holidays/special occasions only Drug use: Never Substance use type: does not use Household members: none Seatbelt use: always Do you feel safe at home: Yes Do you feel safe in your relationship?: Yes Exam Const General: cooperative Orientation: alert, awake and oriented x3 HENMT Head: normal to inspection Ears: hearing grossly normal bilaterally and external ears normal General nose exam: external nose normal Face and sinus: normal facial exam Mouth: oral mucosae normal Teeth and gingiva: dentition normal Throat: posterior oropharynx normal Eyes General: appearance normal, both eyes and all related structures Eyelids: eyelids normal Pupils: PERRL EOM: EOM intact bilaterally Neck Neck: normal visual inspection Lymphatic: no lymphadenopathy noted Chest Chest: normal inspection of the chest and normal palpation of entire chest wall Resp Effort & Inspection: normal respiratory effort and able to speak in complete sentences Auscultation: clear to auscultation bilaterally Cardio Rate: regular rate Rhythm: regular rhythm GI Inspection: normal to inspection Palpation: soft, not firm, no guarding, no hepatosplenomegaly, no masses and nontender Auscultation: normal bowel sounds Back/Spine/Pelvis Cervical Spine: No cervical spinal tenderness Thoracic/Lumbar Spine: thoracic and lumbar spine normal to inspection, No thoracic spinal tenderness and No lumbar spinal tenderness Skin General skin exam: no rashes or lesions noted Neuro General: patient alert and patient awake Cognition: normal cognition Speech: speech normal Gait: normal gait Motor: muscle tone normal throughout Sensory Exam: no sensory deficits noted Extrem Other: Right lower extremity shortened and externally rotated. Right foot pedal edema with intact DP and PT pulses. No tenderness to palpation to right ankle or foot. No pain with range of motion or tenderness to palpation of right elbow. Bilateral upper extremities with full range of motion without pain. Left lower extremity with full range of motion without pain. Psych Appearance: grossly normal Mental Status: mental status grossly normal Speech and Movement: speech and movement normal Affect: normal affect Thought Process: normal Course Vital Signs Vital signs: Vital Signs Temperature 98.2 F 02/21/22 17:16 Pulse 80 02/21/22 17:16 Respiratory Rate 18 02/21/22 17:16 Blood Pressure 156/77 H 02/21/22 17:16 Pulse Oximetry 95 02/21/22 17:16 Temperature 98.2 F 02/21/22 17:16 Temperature Source Temporal Artery Scan 02/21/22 17:16 Pulse 80 02/21/22 17:16 Respiratory Rate 18 02/21/22 17:16 Respiratory Effort Non-Labored 02/21/22 17:33 Blood Pressure 156/77 H 02/21/22 17:16 Blood Pressure Position Supine 02/21/22 17:16 Pulse Oximetry 95 02/21/22 17:16 Oxygen Delivery Method Room Air 02/21/22 17:16 Oxygen Flow Rate 0 02/21/22 17:16 Pain Level 5 02/21/22 17:33
[2022-02-21] MEDS: HYDROmorphone 2 MG/ML VIAL 1 MG IVP (18:02)
[2022-02-21 18:04] LABS: Abs Immature Grans 0.08 10^3/uL (0.0-0.06); Absolute Basophil Count 0.05 10^3/uL (0.0-0.2); Absolute Eosinophil Count 0.05 10^3/uL (0.0-0.7); Absolute Lymphocyte Count 0.98 10^3/uL (1.2-3.4); Absolute Monocyte Count 1.25 10^3/uL (0.1-0.8); Absolute Neutrophil Count 14.42 10^3/uL (1.2-6.7); Basophils % 0.3; Eosinophils % 0.3; HCT 35.7 % (36.0-46.0); HGB 11.9 g/dL (11.2-15.7); Immature Grans % 0.5; Lymphocytes % 5.8; MCH 29.6 pg (27.0-33.0); MCHC 33.3 % (32.0-36.0); MCV 89 fL (80-95); MPV 9.7 fL (8.0-11.0); Monocytes % 7.4; Neutrophils % 85.7; Platelet Count 299 10^3/uL (130-400); RBC 4.02 10^6/uL (3.93-5.22); RDW 12.5 % (11.7-14.6); RDW-SD 40.7 fL; WBC 16.83 10^3/uL (4.4-10.8)
[2022-02-21 18:17] LABS: ALT 18 U/L (14-59); AST 38 U/L (15-37); Alkaline Phosphatase 71 U/L (46-116); Anion Gap 8.8 mmol/L (3-11); BUN 16 mg/dL (7-18); Bilirubin, Total 0.5 mg/dL (0.2-1.0); CO2 28.2 mmol/L (21.0-32.0); CREATININE 0.8 mg/dL (0.55-1.02); Calcium 8.2 mg/dL (8.5-10.1); Chloride 99 mmol/L (98-107); Glucose 115 mg/dL (74-106); Potassium 3.7 mmol/L (3.5-5.1); Sodium 136 mmol/L (136-145); Total Protein 7.5 g/dL (6.4-8.2)
--- NOTE | 2022-02-21 19:07 | DI.VRAD_ITS ---
PROCEDURE INFORMATION: Exam: CT Head Without Contrast Exam date and time: 02/21/2022 18:20 Age: 77 years old Clinical indication: Other: S/P fall, head injury, R/O acute process TECHNIQUE: Imaging protocol: Computed tomography of the head without contrast. Radiation optimization: All CT scans at this facility use at least one of these dose optimization techniques: automated exposure control; mA and/or kV adjustment per patient size (includes targeted exams where dose is matched to clinical indication); or iterative reconstruction. Other contrast: s/p fall, head injury, r/o acute process; COMPARISON: CT HEAD WO 08/31/2020 15:04 FINDINGS: Brain: Atrophy and chronic appearing white matter changes. No edema or hemorrhage. Cerebral ventricles: No ventriculomegaly. Paranasal sinuses: No acute sinusitis. Mastoid air cells: No mastoid effusion. Orbital cavities: Presumed postsurgical changes in the left lens similar to prior. Bones/joints: No acute fracture. Soft tissues: No suspicious lesions. IMPRESSION: No acute intracranial findings. PROCEDURE INFORMATION: Exam: CT Cervical Spine Without Contrast Exam date and time: 02/21/2022 18:20 Age: 77 years old Clinical indication: Other: S/P fall, head injury, R/O acute process TECHNIQUE: Imaging protocol: Computed tomography images of the cervical spine without contrast. Radiation optimization: All CT scans at this facility use at least one of these dose optimization techniques: automated exposure control; mA and/or kV adjustment per patient size (includes targeted exams where dose is matched to clinical indication); or iterative reconstruction. Other contrast: s/p fall, head injury, r/o acute process; COMPARISON: CT HEAD WO 08/31/2020 15:04 FINDINGS: Bones/joints: No acute fracture or subluxation. Degenerative appearing listhesis mild L3 over L4 C7 over T1. Chronic partial ankylosis at C4-C5. Dense calcification partially assessed within a T5 vertebral body. Unclear if this is a metastasis, large bone island or a post treatment finding. There is chronic mild loss of height at T3 and T4. Could be further worked with dedicated CT or MRI of the thoracic spine. Discs/Spinal canal/Neural foramina: Multilevel cervical degenerative changes without severe central canal stenosis. Thyroid: Heterogeneous thyroid gland. Follow-up as per institutional protocol. Lungs: No consolidation. Soft tissues: No suspicious lesions. IMPRESSION: 1. No cervical spine fracture. 2. Incidental findings as described. Dictated and Authenticated by: Madhavi Iyer MD. Ordering:CLARA Wellington MD
--- NOTE | 2022-02-21 19:15 | DI.VRAD_ITS ---
PROCEDURE INFORMATION: Exam: XR Chest Exam date and time: 02/21/2022 6:48 PM Age: 77 years old Clinical indication: Injury or trauma; Blunt trauma (contusions or hematomas); Injury date: 02/21/22; Patient HX: Fall, hip injury TECHNIQUE: Imaging protocol: XR of the chest. Views: 1 view. COMPARISON: CR XR CHEST 1V IN DI DEPT 08/31/2020 3:10 PM FINDINGS: Lungs: The lungs are clear. There is no pulmonary vascular congestion. Pleural spaces: There are no pleural effusions present. There is no evidence of pneumothorax. Heart/Mediastinum: The cardiomediastinal silhouette is within normal limits. Bones/joints: Again noted is vertebroplasty cement at multiple thoracic levels. There is mild broad-based dextroscoliosis centered at the lower thoracic spine. There is no evidence for displaced rib fracture. IMPRESSION: 1. No active cardiopulmonary disease identified. 2. No pneumothorax identified. Dictated and Authenticated by: Nico Woodard MD. Ordering:CLARA Wellington MD
--- NOTE | 2022-02-21 19:22 | DI.VRAD_ITS ---
PROCEDURE INFORMATION: Exam: XR Right Hip Exam date and time: 02/21/2022 6:38 PM Age: 77 years old Clinical indication: Other: Fall, R hip pain, R/O FX TECHNIQUE: Imaging protocol: XR Right hip. Views: 2 or 3 views hip with pelvis when performed. COMPARISON: None. FINDINGS: Bones/joints: There is a mildly comminuted acute intertrochanteric right hip fracture with mild coxa varus deformity with some degree of proximal migration of the right femur as well as up to 2 cm posterior displacement of the right femur. The right femoral head is well located within the right acetabulum. There is an intramedullary sander through the proximal aspect of the left femur, only partially imaged, with a single transverse fixating screw as well as a metallic pin through the left femoral neck, which appears intact. There is cement projecting at the right and left aspects of the sacrum. Both SI joints appear patent, with mild degenerative change of the left SI joint. Soft tissues: Unremarkable. IMPRESSION: 1. Mildly displaced and comminuted intertrochanteric fracture of the right hip as described above. 2. No evidence for subluxation of the right femoral head at the right hip. Dictated and Authenticated by: Nico Woodard MD. Ordering:CLARA Wellington MD
[2022-02-21 20:10] LABS: Source Nasal/Nares
[2022-02-21 20:22] LABS: Bilirubin Negative (Negative); Blood Negative (Negative); Clarity Clear (Clear); Glucose Negative (Negative); Ketones 15 mg/dL (Negative); Leukocyte Esterase Negative (Negative); Nitrite Negative (Negative); Urobilinogen 0.2 EU/dL (Up TO 0.2)
[2022-02-21] MEDS: ACETAMINOPHEN 1,000 MG/100 ML BTL 400 MG IVPB (20:33)
[2022-02-21] MEDS: Lactated Ringers 1,000 ML 70 ML IV (20:38)
--- NOTE | 2022-02-21 20:59 | HPE_ITS ---
Date of service: 02/21/22 Time of Service: 19:59 Assessment and Plan Assessment and plan (1) Closed intertrochanteric fracture of right hip: Status: Acute Assessment and plan: Planned repair tomorrow. Pain control with IV dilaudid prn. Given a dose of po as well. PRN acetaminophen. (2) Discharge planning issues: Status: Acute Assessment and plan: Post-op condition will dictate whether home vs SNF for rehab. (3) DVT prophylaxis: Status: Acute Assessment and plan: SCDs now, then per ortho preference post-op. (4) Hypothyroidism: Status: Chronic Assessment and plan: Cont replacement tx. (5) Adjustment disorder with mixed anxiety and depressed mood: Status: Acute Assessment and plan: Cont. SSRI. Ativan prn. (6) Parkinson disease: Status: Chronic Assessment and plan: Cont Sinemet and entacapone. History of Present Illness History of Present Illness Chief Complaint: Right hip pain after falling Narrative: Ms Oakes is a 77 yo female with a history of Parkinson's disease, mitral regurgitation, previous left femur fx with intramedullary fixation, lymphedema of the right leg (developed following an appendectomy). She presented to the ED with c/o right hip pain after falling from a standing height. She tripped and fell while walking. No LOC, CP, palpitations, dizziness prior to the fall. She also endorsed hitting the top of her head on the ground as well as her right elbow (initially painful but resolved). En route she was given fentanyl with some pain relief. Her right lower ext was noted to be externall rotated and shortened. Hip x-ray showed a right intertrochanteric hip fx. Dr Arambula, orthopedic surgeon, consulted and will plan on a repair likely on the day after admission. No N/V/abd pain, F/C, dysuria. WBC count was 16.83. Hgb 11.9. Electrolytes normal. BUN and creatinine kamlesh l. Glucose 115. AST mildly elevated at 38. ALT normal. Bilirubin normal. UA unremarkable other than + for ketones. CT head w/o acute intracranial findings. CT cervical spine w/o fx. There is chronic mild loss of height at T3 and T4. Dense calcification partially assessed within T5 vertebral body; metastasis vs large bone island or post treatment finding. CXR w/o acute cardiopulmonary findings. PFSH All Active Problems Closed intertrochanteric fracture of right hip (Acute) Fall in home (Acute) Vaginal discharge, bloody (Acute) Post-menopausal bleeding (Acute) Tendinitis involving left hip abductors (Acute) Discharge planning issues (Acute) DVT prophylaxis (Acute) Hypothyroidism (Chronic) Overactive bladder (Chronic) Short-term memory loss (Acute) Adjustment disorder with mixed anxiety and depressed mood (Acute) Abnormal sensation of buttocks (Acute) Dysphagia (Acute) RLS (restless legs syndrome) (Acute) Scoliosis (Acute) Parkinson disease (Chronic) Osteoarthritis of right knee (Chronic) Medical History Arthritis Carpal tunnel syndrome Heart murmur Incontinence Intermediate coronary syndrome Knee pain, right Kyphosis Macular hole Mitral valve regurgitation Multinodular thyroid Osteoporosis Palpitations Parkinsons disease Physical deconditioning Seborrheic keratoses Tinea corporis Tinea pedis Surgical History H/O carpal tunnel repair H/O oophorectomy S/P appendectomy S/P eye surgery ambliopia S/P lumbar spine operation Family History Brother Parkinson disease Maternal Uncle Parkinson disease Paternal Cousin Parkinson disease Other Diabetes Stroke Social History Smoking/Tobacco Use Status: Former Tobacco Use Smoking risk assessment performed?: Yes Alcohol Intake: current Alcohol Intake frequency: holidays/special occasions only Drug use: Never Substance use type: does not use Household members: none Seatbelt use: always Do you feel safe at home: Yes Do you feel safe in your relationship?: Yes Meds Allergies and Home Medications Allergies Allergy/AdvReac Type Severity Reaction Status Date / Time omeprazole Allergy Intermediate Verified 01/17/22 13:19 Home Medications Medication Instructions Recorded Confirmed Type furosemide 20 mg tablet 40 mg PO DAILY 08/26/18 02/21/22 History levothyroxine 25 mcg capsule 25 mcg PO DAILY 08/26/18 02/21/22 History multivitamin with minerals-folic 1 tab PO DAILY 08/31/20 02/21/22 History acid 80 mcg chewable tablet mirtazapine 7.5 mg tablet 15 mg PO QHS 01/12/21 02/21/22 History calcium citrate 315 mg 1 tab PO DAILY 08/04/21 02/21/22 History calcium-vitamin D3 6.25 mcg (250 unit) tablet carbidopa 25 mg-levodopa 100 mg 2 tab PO TID #540 tabs 08/04/21 02/21/22 Rx tablet (Sinemet) cholecalciferol (vitamin D3) 25 2,000 unit PO BID 08/04/21 02/21/22 History mcg (1,000 unit) capsule docusate sodium 100 mg capsule 100 mg PO .QOD 08/04/21 02/21/22 History entacapone 200 mg tablet 200 mg PO TID #270 tabs 08/04/21 02/21/22 Rx hydroxyzine HCl 10 mg tablet 10 mg PO QHS PRN itching or 08/04/21 02/21/22 Rx anxiety or insomnia #90 tabs nystatin 100,000 unit/gram topical 1 applic topical BID PRN 08/04/21 02/21/22 History powder omeprazole 20 mg capsule,delayed 20 mg PO DAILY #90 caps 08/04/21 02/21/22 Rx release peg 400-propylene glycol (PF) 0.4 1 drp ophthalmic (eye) TID 08/04/21 02/21/22 History %-0.3 % eye drops in a dropperette (Systane (PF)) methylphenidate HCl 5 mg tablet 2.5 mg PO BID #30 tabs 11/16/21 11/16/21 Rx sertraline 50 mg tablet 50 mg PO DAILY 01/17/22 02/21/22 History acetaminophen 500 mg tablet 1,000 mg PO Q8H PRN 02/21/22 02/21/22 History Results Labs Result diagrams: 02/21/22 17:55 02/21/22 17:55 Labs: Laboratory Results - last 24 hr 02/21/22 02/21/22 02/21/22 17:55 17:55 20:05 WBC 16.83 H RBC 4.02 Hgb 11.9 Hct 35.7 L MCV 89 MCH 29.6 MCHC 33.3 RDW 12.5 Plt Count 299 MPV 9.7 Immature Gran % 0.5 Neutrophils % 85.7 Lymphocytes % 5.8 Monocytes % 7.4 Eosinophils % 0.3 Basophils % 0.3 Nucleated RBC % 0.0 Absolute Neutrophils 14.42 H Absolute Lymphocytes 0.98 L Absolute Monocytes 1.25 H Absolute Eosinophils 0.05 Absolute Basophils 0.05 Sodium 136 Potassium 3.7 Chloride 99 Carbon Dioxide 28.2 Anion Gap 8.8 BUN 16 Creatinine 0.8 Estimated GFR/1.73 m2 >= 60.00 Glucose 115 H Calcium 8.2 L Total Bilirubin 0.5 AST 38 H ALT 18 Alkaline Phosphatase 71 Total Protein 7.5 Albumin 4.0 Urine Color Urine Clarity Urine pH Ur Specific [place] Urine Protein Urine Ketones Urine Blood Urine Nitrite Urine Bilirubin Urine Urobilinogen Ur Leukocyte Esterase Urine Glucose COVID-19 Source Nasal/Nares 02/21/22 20:05 WBC RBC Hgb Hct MCV MCH MCHC RDW Plt Count MPV Immature Gran % Neutrophils % Lymphocytes % Monocytes % Eosinophils % Basophils % Nucleated RBC % Absolute Neutrophils Absolute Lymphocytes Absolute Monocytes Absolute Eosinophils Absolute Basophils Sodium Potassium Chloride Carbon Dioxide Anion Gap BUN Creatinine Estimated GFR/1.73 m2 Glucose Calcium Total Bilirubin AST ALT Alkaline Phosphatase Total Protein Albumin Urine Color Annie Urine Clarity Clear Urine pH 7.0 Ur Specific [place] 1.020 Urine Protein Negative Urine Ketones 15 H Urine Blood Negative Urine Nitrite Negative Urine Bilirubin Negative Urine Urobilinogen 0.2 Ur Leukocyte Esterase Negative Urine Glucose Negative COVID-19 Source Last Vital Signs Temp 37.0 C 02/21/22 20:47 Pulse 78 02/21/22 20:47 Resp 18 02/21/22 20:47 BP 110/72 02/21/22 20:47 Pulse Ox 95 02/21/22 20:47
--- NOTE | 2022-02-21 21:08 | ANES.PREOP_ITS ---
General Info Date of Service Date Performed: 02/21/22 Height: 5 ft 5 in Weight: 53.524 kg Body Mass Index (BMI): 19.6 Meds Allergies and Home Medications Allergies Allergy/AdvReac Type Severity Reaction Status Date / Time omeprazole Allergy Intermediate Verified 01/17/22 13:19 Home Medication Medication Instructions Recorded furosemide 20 mg tablet 40 mg PO DAILY 08/26/18 levothyroxine 25 mcg capsule 25 mcg PO DAILY 08/26/18 multivitamin with minerals-folic 1 tab PO DAILY 08/31/20 acid 80 mcg chewable tablet mirtazapine 7.5 mg tablet 15 mg PO QHS 01/12/21 calcium citrate 315 mg 1 tab PO DAILY 08/04/21 calcium-vitamin D3 6.25 mcg (250 unit) tablet carbidopa 25 mg-levodopa 100 mg 2 tab PO TID #540 tabs 08/04/21 tablet (Sinemet) cholecalciferol (vitamin D3) 25 2,000 unit PO BID 08/04/21 mcg (1,000 unit) capsule docusate sodium 100 mg capsule 100 mg PO .QOD 08/04/21 entacapone 200 mg tablet 200 mg PO TID #270 tabs 08/04/21 hydroxyzine HCl 10 mg tablet 10 mg PO QHS PRN itching or 08/04/21 anxiety or insomnia #90 tabs nystatin 100,000 unit/gram topical 1 applic topical BID PRN 08/04/21 powder omeprazole 20 mg capsule,delayed 20 mg PO DAILY #90 caps 08/04/21 release peg 400-propylene glycol (PF) 0.4 1 drp ophthalmic (eye) TID 08/04/21 %-0.3 % eye drops in a dropperette (Systane (PF)) methylphenidate HCl 5 mg tablet 2.5 mg PO BID #30 tabs 11/16/21 sertraline 50 mg tablet 50 mg PO DAILY 01/17/22 acetaminophen 500 mg tablet 1,000 mg PO Q8H PRN 02/21/22 Current Visit Medications: Current Medications Generic Name Dose Route Start Last Admin Trade Name Freq PRN Reason Stop Dose Admin Acetaminophen 0 mg 02/21/22 19:34 Acetaminophen 325 Mg Tab PO Q4H PRN PRN Carbidopa/Levodopa 2 tab 02/21/22 20:00 Carbidopa 25/Levodopa 100 Tab PO TID [facility] Carboxymethylcellulose Sodium 1 each 02/22/22 08:30 Refresh Plus Eye Drops 0.4ml OP TID [facility] Cholecalciferol 2,000 units 02/22/22 08:30 Cholecalciferol (Vitamin D3) 1,000 Unit Tab PO BID [facility] Dimethicone/Zinc Oxide 0 gm 02/21/22 19:33 Angela Protect Cream 142 Gm Tube TP PRN PRN Furosemide 40 mg 02/22/22 08:30 Furosemide 20 Mg Tab PO DAILY [facility] Hydroxyzine HCl 10 mg 02/21/22 19:40 Hydroxyzine Hcl 10 Mg Tab PO HS PRN PRN itching or anxiety or insomnia Ringer's Solution 1,000 mls @ 70 mls/hr 02/21/22 19:45 02/21/22 20:38 IV 70 mls/hr INFUSION [facility] Administration Iron/Minerals/Multivitamins 1 tab 02/22/22 08:30 Multivitamin W/Minerals Tab PO DAILY [facility] Levothyroxine Sodium 25 mcg 02/22/22 06:00 Levothyroxine 25 Mcg Tab PO 0600 [facility] Magnesium Hydroxide 30 ml 02/21/22 19:34 Milk Of Magnesia 30 Ml Cup PO DAILY PRN PRN Mirtazapine 15 mg 02/21/22 22:00 Mirtazapine 15 Mg Tab PO HS [facility] Non-Formulary Medication 200 mg 02/21/22 20:00 Entacapone PO TID [facility] Nystatin 0 gm 02/21/22 19:40 Nystatin Powder 60 Gm Jar TP BID PRN PRN Omeprazole 20 mg 02/22/22 08:30 Omeprazole 20 Mg Capcr PO DAILY [facility] Polyethylene Glycol 17 gm 02/21/22 19:34 Polyethylene Glycol 3350 17 Gm Packet PO DAILY PRN PRN Constipation Sertraline HCl 50 mg 02/22/22 08:30 Sertraline 50 Mg Tab PO DAILY [facility] PFSH Active Problems Active Problems: Problem Status Onset Code Closed intertrochanteric fracture of right hip S72.141A Fall in home W19.XXXA, Y92.009 Vaginal discharge, bloody N89.8 Post-menopausal bleeding N95.0 Tendinitis involving left hip abductors M76.892 Discharge planning issues Z02.9 DVT prophylaxis Z29.9 Hypothyroidism E03.9 Fracture of hip, left, closed S72.002A Overactive bladder N32.81 Short-term memory loss R41.3 Adjustment disorder with mixed anxiety and depressed mood F43.23 Abnormal sensation of buttocks R20.9 Dysphagia R13.10 RLS (restless legs syndrome) G25.81 Scoliosis M41.9 Parkinson disease G20 Osteoarthritis of right knee M17.11 Medical History Medical History Arthritis Carpal tunnel syndrome Heart murmur Incontinence Intermediate coronary syndrome Knee pain, right Kyphosis Macular hole Mitral valve regurgitation Multinodular thyroid Osteoporosis Palpitations Parkinsons disease Physical deconditioning Seborrheic keratoses Tinea corporis Tinea pedis Surgical History Surgical History H/O carpal tunnel repair H/O oophorectomy S/P appendectomy S/P eye surgery ambliopia S/P lumbar spine operation Tobacco Smoking/Tobacco Use Status: Former Tobacco Use Alcohol Alcohol Intake: current Alcohol intake frequency: holidays/special occasions only Substance Use Substance use: Never Substance use type: does not use Vital Signs and Lab Results Vital Signs Most Recent Vital Signs in EMR: Most Recent Vital Signs Temp Pulse Resp BP Pulse Ox 37.0 C 78 18 110/72 95 02/21/22 20:47 02/21/22 20:47 02/21/22 20:47 02/21/22 20:47 02/21/22 20:47 Point of Care Results Point of Care Results: Finger Stick Blood Glucose 105 02/21/22 19:51 Lab Results Result Diagrams: 02/21/22 17:55 02/21/22 17:55 Blood Type / Crossmatch: No Data to Display Complete Blood Count: White Blood Count 16.83 10^3/uL (4.4-10.8) H 02/21/22 17:55 Red Blood Count 4.02 10^6/uL (3.93-5.22) 02/21/22 17:55 Hemoglobin 11.9 g/dL (11.2-15.7) 02/21/22 17:55 Hematocrit 35.7 % (36.0-46.0) L 02/21/22 17:55 Platelet Count 299 10^3/uL (130-400) 02/21/22 17:55 Complete Metabolic Panel: Sodium Level 136 mmol/L (136-145) 02/21/22 17:55 Potassium Level 3.7 mmol/L (3.5-5.1) 02/21/22 17:55 Chloride Level 99 mmol/L (98-107) 02/21/22 17:55 Carbon Dioxide Level 28.2 mmol/L (21.0-32.0) 02/21/22 17:55 Blood Urea Nitrogen 16 mg/dL (7-18) 02/21/22 17:55 Creatinine 0.8 mg/dL (0.55-1.02) 02/21/22 17:55 Estimated GFR/1.73 m2 >= 60.00 (mL/min/1.73m2) 02/21/22 17:55 Calcium Level 8.2 mg/dL (8.5-10.1) L 02/21/22 17:55 Albumin 4.0 g/dL (3.4-5.0) 02/21/22 17:55 Glucose Level 115 mg/dL (74-106) H 02/21/22 17:55 Liver Function Panel: Alanine Aminotransferase (ALT/SGPT) 18 U/L (14-59) 02/21/22 17: 55 Aspartate Amino Transf (AST/SGOT) 38 U/L (15-37) H 02/21/22 17: 55 Coagulation Panel: No Data to Display Cardiac Panel: No Data to Display Arterial Blood Gas: No Data to Display Venous Blood Gas: No Data to Display Pancreas Panel: No Data to Display Thyroid Panel: Thyroid Stimulating Hormone (TSH) 2.15 uIU/mL (0.36-3.74) 02/09 12:05 Infectious Disease: Coronavirus (COVID-19)(PCR) Negative (Negative) 02/21/22 20:05 Coronavirus 2019 Source Nasal/Nares 02/21/22 20:05 Blood Cultures: No Data to Display Toxicology Panel: No Data to Display Imaging and Studies Imaging and Studies Study information below may be from another EMR and interpreted by another provider. Please see original notes in EMR for more complete details. EKG Summary: Exam: Resting ECG Reason for Exam: fall Patient Location: E HR:82 bpm ECG Measurements Heart Rate 82 AXIS OK 180 P 44 QRSd 101 QRS -12 QT 408 T42 QTc 478 Conclusion Sinus rhythm...normal P axis, V-rate 60- 99 Probable left atrial enlargement...P >50mS, <-0.10mV V1 Low voltage, extremity leads...all extremity leads <0.5mV. Sinus. No STEMI. I have reviewed and interpreted ECG and agree with software generated interpretation. Consider anterior infarct...Q >30mS in V2-V5 <Electronically signed by BABAK VASQUEZ DO in OV> E-Sign Date: 02/21/22 E-Sign Time: 2047 Anesthesia Assessment and Plan Anesthesia History Personal History: No History of Anesthesia Complications Family History: No Family History of Anesthesia Complications Exercise Tolerance Exercise Tolerance: Metabolic Equivalents>4 Pertinent Negatives Pertinent Negatives: No Symptoms of GERD and No Major Cardiovascular Symptoms or Complaints (Palpitations, Grade 2 Murmur, ECHO 09/24 EF 65-70%) Cardiac & Pulmonary Exam Cardiac Exam: Normal S1/S2 Heart Sounds Pulmonary Exam: Clear Bilateral Breath Sounds Implantable Cardiac Device Does patient have a Pacemaker or an ICD?: No Airway Exam Known Difficult Airway: No Mallampati Class: 1 Mouth Opening: Normal (> 3cm) Thyromental Distance: Greater than 3 cm Neck Range of Motion: Full ROM Neck Circumference: Normal Teeth Condition: Normal Dentition ASA Classification ASA Score: ASA 2 Emergency Case?: No NPO Status NPO Status: Full Stomach Anesthesia Plan Resuscitation Status: Full Code Anesthesia Technique: Primary Nerve Block (MILA) Airway Planned: Natural Airway Pain Management: Surgeon and patient request nerve block Monitors Used: Standard Monitors
[2022-02-21 21:32] LABS: COVID-19 PCR Negative (Negative)
[2022-02-21] MEDS: Carbidopa 25/Levodopa 100 TAB PO (21:55)
[2022-02-21] MEDS: Mirtazapine 15 MG TAB PO (21:56)
[2022-02-21] MEDS: HYDROmorphone 2 MG TAB PO (21:56)
--- NOTE | 2022-02-21 22:02 | W.ANESNERVE ---
Nerve Block Single Injection Procedure Date and Time Date Performed: 02/21/22 Procedure Start: 22:02 Location Where Procedure Performed Procedure Location: Med/Surg (229) Reason Performed: Acute Pain Management Pain Diagnosis: Hip Pain (Right) Requesting Provider: Stephan Arambula Timeout Performed Timeout Performed: Yes Monitoring Used ECG, Blood Pressure, SpO2 and ETCO2 Sterility Sterility: Hand Hygiene, Surgical Cap, Surgical Mask, Sterile Gloves, Eye Protection and Chlorhexidine Sedation Given During Procedure Sedation Given (Indicate Dose Given): No Sedation given Patient Mental Status Patient Mental Status: Awake Nerve Block 1st Nerve Block: Laterality: Right Block Type: MILA Needle / Catheter Used: 100mm SonoPlex II Local Anesthetic Bolus (Indicate Dose Given): Lidocaine used for local infiltration of skin, Injected in 3-5ml increments after negative blood aspiration, Bupivacaine 0.5% Dose:: 10 cc and Exparel Dose:: 10 cc Additives (Indicate Dose Given): None Ultrasound: Sterile probe cover and gel used Ultrasound Image Saved?: Yes Nerve Stimulator: Not Used Paresthesia: None Post Procedure Pain score (0-10): 1 Procedure Tolerated: No Complications and Patient tolerated well Procedure Outcome: Successful Performed By: Omar Milligan
[2022-02-22] VITALS (8 sets, daily range): BP systolic 92–129; BP diastolic 39–69; PULSE 68–76; RESP 15–18; TEMP 36.6–37.6; O2SAT 91–99; BMI 19.6
[2022-02-22] MEDS: Levothyroxine 25 MCG TAB PO (06:29)
[2022-02-22] MEDS: HYDROmorphone 2 MG/ML SYR 0.5 MG IVP (06:29)
[2022-02-22 06:39] LABS: Abs Immature Grans 0.02 10^3/uL (0.0-0.06); Absolute Basophil Count 0.07 10^3/uL (0.0-0.2); Absolute Eosinophil Count 0.18 10^3/uL (0.0-0.7); Absolute Lymphocyte Count 1.18 10^3/uL (1.2-3.4); Absolute Monocyte Count 0.86 10^3/uL (0.1-0.8); Absolute Neutrophil Count 4.31 10^3/uL (1.2-6.7); Basophils % 1.1; Eosinophils % 2.7; HCT 34.6 % (36.0-46.0); HGB 11.3 g/dL (11.2-15.7); Immature Grans % 0.3; Lymphocytes % 17.8; MCH 29.3 pg (27.0-33.0); MCHC 32.7 % (32.0-36.0); MCV 90 fL (80-95); MPV 9.9 fL (8.0-11.0); Neutrophils % 65.1; Platelet Count 277 10^3/uL (130-400); RBC 3.86 10^6/uL (3.93-5.22); RDW 12.7 % (11.7-14.6); RDW-SD 41.8 fL; WBC 6.62 10^3/uL (4.4-10.8)
[2022-02-22 07:05] LABS: ALT 11 U/L (14-59); AST 23 U/L (15-37); Albumin 3.7 g/dL (3.4-5.0); Alkaline Phosphatase 67 U/L (46-116); Anion Gap 7.4 mmol/L (3-11); BUN 13 mg/dL (7-18); Bilirubin, Total 0.7 mg/dL (0.2-1.0); CO2 30.6 mmol/L (21.0-32.0); CREATININE 0.7 mg/dL (0.55-1.02); Calcium 8.1 mg/dL (8.5-10.1); Chloride 102 mmol/L (98-107); Glucose 94 mg/dL (74-106); Potassium 3.9 mmol/L (3.5-5.1); Sodium 140 mmol/L (136-145); Total Protein 6.8 g/dL (6.4-8.2)
--- NOTE | 2022-02-22 07:19 | W.ORTHOCONSU ---
History of Present Illness History of Present Illness Chief Complaint: Right hip fracture Narrative: Lucía is a 77-year-old who I know from previous injuries. She suffered a left hip fracture some years ago status post intramedullary fixation. Unfortunately, she fell at home yesterday landing on her right side and was unable to mobilize. This was a mechanical fall. She was seen in the emergency department diagnosed with a right intertrochanteric hip fracture. He did report having hit her head with a negative CT scan in the emergency department. She has had some pain with any attempted motion or mobility and is currently having good pain control with both IV and oral agents. Consults Consult date: 02/21/22 Requesting physician: Jesse Mott Consult Reason Right Intertrochanteric Hip Fracture Assessment and Plan Assessment and plan (1) Closed intertrochanteric fracture of right hip: Status: Acute Assessment and plan: Lucía is a 77-year-old who had a fall yesterday and suffered a intertrochanteric hip fracture on the right side. Unfortunately, she has had previous falls resulting in a fracture of the left hip. She has been doing relatively well until this point but this will require surgical fixation just like the left side. I did discuss these options with her and I do highly encourage operative fixation as this would allow her to start mobilizing as soon as possible and regain her function soon as possible although it will take some time, as she experienced on the left side. I recommended proceeding with intramedullary fixation of the hip fracture on the right. I reviewed the risk of the procedure to include bleeding, infection, pain, stiffness, malunion, nonunion, hardware prominence, hardware failure, need for repeat procedures, blood clot, cardiopulmonary demise. Despite these risk, she does elect to proceed. Review of Systems All systems reviewed & are unremarkable except as noted in HPI and below PFSH All Active Problems (Updated 02/22/22 @ 12:56 by Briana Donohue) GERD (gastroesophageal reflux disease) (Chronic) Depression (Chronic) Constipation (Acute) Pain (Acute) Closed intertrochanteric fracture of right hip (Acute) Fall in home (Acute) Vaginal discharge, bloody (Acute) Post-menopausal bleeding (Acute) Tendinitis involving left hip abductors (Acute) Discharge planning issues (Acute) DVT prophylaxis (Acute) Hypothyroidism (Chronic) Overactive bladder (Chronic) Short-term memory loss (Acute) Adjustment disorder with mixed anxiety and depressed mood (Acute) Abnormal sensation of buttocks (Acute) Dysphagia (Acute) RLS (restless legs syndrome) (Acute) Scoliosis (Acute) Parkinson disease (Chronic) Osteoarthritis of right knee (Chronic) Medical History Arthritis Carpal tunnel syndrome Heart murmur Incontinence Intermediate coronary syndrome Knee pain, right Kyphosis Macular hole Mitral valve regurgitation Multinodular thyroid Osteoporosis Palpitations Parkinsons disease Physical deconditioning Seborrheic keratoses Tinea corporis Tinea pedis Surgical History H/O carpal tunnel repair H/O oophorectomy S/P appendectomy S/P eye surgery ambliopia S/P lumbar spine operation Family History Brother Parkinson disease Maternal Uncle Parkinson disease Paternal Cousin Parkinson disease Other Diabetes Stroke Social History Smoking/Tobacco Use Status: Former Tobacco Use Smoking risk assessment performed?: Yes Alcohol Intake: current Alcohol Intake frequency: holidays/special occasions only Drug use: Never Substance use type: does not use Household members: none Seatbelt use: always Do you feel safe at home: Yes Do you feel safe in your relationship?: Yes Exam Narrative Exam Narrative: Sitting up in the bed. Right lower extremity is positioned on pillows and shortened and externally rotated. Swelling is noted about the proximal aspect of the right thigh but no ecchymosis. No break in the skin. She does have some pitting edema peripherally, 1+, worse on the right side. She is able to flex and extend the great toe as well as the ankle. Sensation intact light touch over the deep and superficial peroneal nerve and tibial nerve. Palpable DP and posterior tibial. Results Last Vital Signs Temp 36.0 C L 02/21/22 23:25 Pulse 60 02/21/22 23:25 Resp 18 02/21/22 23:25 BP 114/52 L 02/21/22 23:25 Pulse Ox 97 02/21/22 23:25 Labs Result diagrams: 02/22/22 05:55 02/22/22 05:55 Labs: Laboratory Results - last 24 hr 02/21/22 02/21/22 02/21/22 17:55 17:55 20:05 WBC 16.83 H RBC 4.02 Hgb 11.9 Hct 35.7 L MCV 89 MCH 29.6 MCHC 33.3 RDW 12.5 Plt Count 299 MPV 9.7 Immature Gran % 0.5 Neutrophils % 85.7 Lymphocytes % 5.8 Monocytes % 7.4 Eosinophils % 0.3 Basophils % 0.3 Nucleated RBC % 0.0 Absolute Neutrophils 14.42 H Absolute Lymphocytes 0.98 L Absolute Monocytes 1.25 H Absolute Eosinophils 0.05 Absolute Basophils 0.05 Sodium 136 Potassium 3.7 Chloride 99 Carbon Dioxide 28.2 Anion Gap 8.8 BUN 16 Creatinine 0.8 Estimated GFR/1.73 m2 >= 60.00 Glucose 115 H Calcium 8.2 L Total Bilirubin 0.5 AST 38 H ALT 18 Alkaline Phosphatase 71 Total Protein 7.5 Albumin 4.0 Urine Color Urine Clarity Urine pH Ur Specific [place] Urine Protein Urine Ketones Urine Blood Urine Nitrite Urine Bilirubin Urine Urobilinogen Ur Leukocyte Esterase Urine Glucose COVID-19 Source Nasal/Nares SARS-CoV-2 (PCR) Negative 02/21/22 02/22/22 02/22/22 20:05 05:55 05:55 WBC 6.62 RBC 3.86 L Hgb 11.3 Hct 34.6 L MCV 90 MCH 29.3 MCHC 32.7 RDW 12.7 Plt Count 277 MPV 9.9 Immature Gran % 0.3 Neutrophils % 65.1 Lymphocytes % 17.8 Monocytes % 13.0 Eosinophils % 2.7 Basophils % 1.1 Nucleated RBC % 0.0 Absolute Neutrophils 4.31 Absolute Lymphocytes 1.18 L Absolute Monocytes 0.86 H Absolute Eosinophils 0.18 Absolute Basophils 0.07 Sodium 140 Potassium 3.9 Chloride 102 Carbon Dioxide 30.6 Anion Gap 7.4 BUN 13 Creatinine 0.7 Estimated GFR/1.73 m2 >= 60.00 Glucose 94 Calcium 8.1 L Total Bilirubin 0.7 AST 23 ALT 11 L Alkaline Phosphatase 67 Total Protein 6.8 Albumin 3.7 Urine Color Annie Urine Clarity Clear Urine pH 7.0 Ur Specific [place] 1.020 Urine Protein Negative Urine Ketones 15 H Urine Blood Negative Urine Nitrite Negative Urine Bilirubin Negative Urine Urobilinogen 0.2 Ur Leukocyte Esterase Negative Urine Glucose Negative COVID-19 Source SARS-CoV-2 (PCR) Imaging Imaging Studies: X-ray of the right hip and femur demonstrates an intertrochanteric fracture about the right hip. There also appears to be some comminution of greater trochanter. There is notable external rotation of the femur with some shortening. There is an intramedullary nail in place on the left side with excellent healing. No distal extension of the fracture line apparent. No pelvic fracture. No suspicious lesions.
--- NOTE | 2022-02-22 09:08 | W.PM.PROGNOT ---
Date of Service Date of service: 02/22/22 Time of Service: 10:00 Assessment and Plan Assessment and plan (1) Closed intertrochanteric fracture of right hip: Status: Acute Assessment and plan: Orthopedic consultaion: Surgery planned for today Recommendation:? proceeding with intramedullary fixation of the hip fracture on the right.? I reviewed the risk of the procedure to include bleeding, infection, pain, stiffness, malunion, nonunion, hardware prominence, hardware failure, need for repeat procedures, blood clot, cardiopulmonary demise.? Despite these risk, she does elect to proceed. (2) Pain: Status: Acute Assessment and plan: Anesthesia initiated a nerve block for pain control Will continue current pain management drug regimen unless changed by anesthesia (3) DVT prophylaxis: Status: Acute Assessment and plan: DVT prophylaxis will be guided by Dr. Arambula's recommendations post-surgery No pharmacological agent ordered due to displaced fracture and pending surgery Will continue Sequential compression devices protocol. (4) Hypothyroidism: Status: Chronic Assessment and plan: Patient will continue Levothyroxine 25 mcg orally daily (5) Constipation: Status: Acute Assessment and plan: Will initiate bowel management regimen: Miralax orally daily Colace Daily PRN (6) Adjustment disorder with mixed anxiety and depressed mood: Status: Acute Assessment and plan: Will continue home regimen Sertraline 50 mg orally daily and Mirtazapine 7.5 mg oral at HS Hydroxyzine 10 mg oral at HS (7) Parkinson disease: Status: Chronic Assessment and plan: Will conitnue home regimen of Sinemet and entacapone (8) GERD (gastroesophageal reflux disease): Status: Chronic Assessment and plan: Will continue home med: Omeprazole 20 mg oral daily (9) Discharge planning issues: Status: Acute Assessment and plan: Home or rehab needs will depend on post-op recovery Followed by care management: Patient will likely be discharged home with new home health services. She will follow up with her PCP and plan of care and transport with family. CM will continue to support Lucía and assess for discharge concerns. Subjective Subjective Patient reports: still having pain (6/10 pain to right lower ext. that keeps her from thinking), flatus, no bowel movement and other (Patient reports lack of sleep and increased anxiety. Stating I am scared of dying); denies nausea, vomiting, shortness of breath or fever Exam Const General: cooperative Nutritional Appearance: thin Orientation: alert, awake and oriented x3 HENMT Head: normal to inspection Ears: hearing grossly normal bilaterally and external ears normal General nose exam: external nose normal Face and sinus: normal facial exam Eyes General: appearance normal, both eyes and all related structures Eyelids: eyelids normal Neck Neck: normal visual inspection Lymphatic: no lymphadenopathy noted Chest Chest: normal inspection of the chest and normal palpation of entire chest wall Resp Effort & Inspection: normal respiratory effort and able to speak in complete sentences Auscultation: clear to auscultation bilaterally Cardio Rate: regular rate Rhythm: regular rhythm Pulses: radial pulses present and dorsalis pedis present GI Inspection: normal to inspection Palpation: soft, not firm, no guarding, no hepatosplenomegaly, no masses and nontender Auscultation: normal bowel sounds Other: Hills catheter in place and patent. Back/Spine/Pelvis Cervical Spine: No cervical spinal tenderness Thoracic/Lumbar Spine: thoracic and lumbar spine normal to inspection, No thoracic spinal tenderness and No lumbar spinal tenderness Skin General skin exam: no rashes or lesions noted Neuro General: patient alert and patient awake Cranial Nerves: no nystagmus, hearing normal, able to rotate head bilaterally and able to elevate shoulders bilaterally Cognition: normal cognition Speech: speech normal Gait: normal gait Motor: strength 5/5 throughout (Except to right lower extremity.) and no tremors Sensory Exam: no sensory deficits noted Coordination: [id number] test normal Extrem Right upper extremity: normal to inspection and full ROM Left upper extremity: normal to inspection and full ROM Right lower extremity: edema, ankle and foot; ROM limited Left lower extremity: normal to inspection; no edema Other: Right lower extremity shortened and externally rotated. Right foot pedal edema with intact DP and PT pulses. No tenderness to palpation to right ankle or foot. No pain with range of motion or tenderness to palpation of right elbow. Bilateral upper extremities with full range of motion without pain. Left lower extremity with full range of motion without pain. Psych Appearance: grossly normal Mental Status: mental status grossly normal Speech and Movement: speech and movement normal Affect: normal affect Thought Process: normal Objective Last Vital Signs Temp 98.4 F 02/22/22 07:49 Pulse 72 02/22/22 07:49 Resp 17 02/22/22 07:49 BP 128/69 02/22/22 07:49 Pulse Ox 93 02/22/22 07:49 Laboratory Results - last 24 hr 02/21/22 02/21/22 02/21/22 17:55 17:55 20:05 WBC 16.83 H RBC 4.02 Hgb 11.9 Hct 35.7 L MCV 89 MCH 29.6 MCHC 33.3 RDW 12.5 Plt Count 299 MPV 9.7 Immature Gran % 0.5 Neutrophils % 85.7 Lymphocytes % 5.8 Monocytes % 7.4 Eosinophils % 0.3 Basophils % 0.3 Nucleated RBC % 0.0 Absolute Neutrophils 14.42 H Absolute Lymphocytes 0.98 L Absolute Monocytes 1.25 H Absolute Eosinophils 0.05 Absolute Basophils 0.05 Sodium 136 Potassium 3.7 Chloride 99 Carbon Dioxide 28.2 Anion Gap 8.8 BUN 16 Creatinine 0.8 Estimated GFR/1.73 m2 >= 60.00 Glucose 115 H Calcium 8.2 L Total Bilirubin 0.5 AST 38 H ALT 18 Alkaline Phosphatase 71 Total Protein 7.5 Albumin 4.0 Urine Color Urine Clarity Urine pH Ur Specific Lamar Urine Protein Urine Ketones Urine Blood Urine Nitrite Urine Bilirubin Urine Urobilinogen Ur Leukocyte Esterase Urine Glucose COVID-19 Source Nasal/Nares SARS-CoV-2 (PCR) Negative 02/21/22 02/22/22 02/22/22 20:05 05:55 05:55 WBC 6.62 RBC 3.86 L Hgb 11.3 Hct 34.6 L MCV 90 MCH 29.3 MCHC 32.7 RDW 12.7 Plt Count 277 MPV 9.9 Immature Gran % 0.3 Neutrophils % 65.1 Lymphocytes % 17.8 Monocytes % 13.0 Eosinophils % 2.7 Basophils % 1.1 Nucleated RBC % 0.0 Absolute Neutrophils 4.31 Absolute Lymphocytes 1.18 L Absolute Monocytes 0.86 H Absolute Eosinophils 0.18 Absolute Basophils 0.07 Sodium 140 Potassium 3.9 Chloride 102 Carbon Dioxide 30.6 Anion Gap 7.4 BUN 13 Creatinine 0.7 Estimated GFR/1.73 m2 >= 60.00 Glucose 94 Calcium 8.1 L Total Bilirubin 0.7 AST 23 ALT 11 L Alkaline Phosphatase 67 Total Protein 6.8 Albumin 3.7 Urine Color Annie Urine Clarity Clear Urine pH 7.0 Ur Specific Lamar 1.020 Urine Protein Negative Urine Ketones 15 H Urine Blood Negative Urine Nitrite Negative Urine Bilirubin Negative Urine Urobilinogen 0.2 Ur Leukocyte Esterase Negative Urine Glucose Negative COVID-19 Source SARS-CoV-2 (PCR)
--- NOTE | 2022-02-22 09:15 | RT.EKG_ITS ---
APPROVED REPORT Exam: Resting ECG Reason for Exam: pre op Patient Location: I HR:74 bpm ECG Measurements Heart Rate 74 AXIS MT 174 P 73 QRSd 159 QRS 9 QT 396 T 50 QTc 440 Conclusion Sinus rhythm...normal P axis, V-rate 50- 99 Probable left atrial enlargement...P >50mS, <-0.10mV V1 Nonspecific intraventricular conduction delay...QRSd >115mS, not LBBB/RBBB Anteroseptal infarct, age indeterminate...Q >35mS, T neg, V1-V2
[2022-02-22] MEDS: Furosemide 20 MG TAB 40 MG PO (09:36)
[2022-02-22] MEDS: Carbidopa 25/Levodopa 100 TAB PO ×3 (09:36→20:03)
[2022-02-22] MEDS: Sertraline 50 MG TAB PO (09:37)
[2022-02-22] MEDS: Omeprazole 20 MG CAPCR PO (09:37)
[2022-02-22 09:51] LABS: INR 1.1 (0.9-1.1); Prothrombin Time 10.8 sec (9.3-11.0)
[2022-02-22] MEDS: HYDROmorphone 2 MG/ML SYR IVP (10:26)
--- NOTE | 2022-02-22 10:33 | W.ANESPRE ---
General Info Date of Service Date Performed: 02/22/22 Height: 5 ft 5 in Weight: 53.524 kg Body Mass Index (BMI): 19.6 Surgical Procedure: Operation Date: 02/22/22 16:00 Proposed Procedure Side Surgeon p Hip TFNA Right Stephan Arambula MD Meds Allergies and Home Medications Home Medication Medication Instructions Recorded furosemide 20 mg tablet 40 mg PO DAILY 08/26/18 levothyroxine 25 mcg capsule 25 mcg PO DAILY 08/26/18 multivitamin with minerals-folic 1 tab PO DAILY 08/31/20 acid 80 mcg chewable tablet mirtazapine 7.5 mg tablet 15 mg PO QHS 01/12/21 calcium citrate 315 mg 1 tab PO DAILY 08/04/21 calcium-vitamin D3 6.25 mcg (250 unit) tablet carbidopa 25 mg-levodopa 100 mg 2 tab PO TID #540 tabs 08/04/21 tablet (Sinemet) cholecalciferol (vitamin D3) 25 2,000 unit PO BID 08/04/21 mcg (1,000 unit) capsule docusate sodium 100 mg capsule 100 mg PO .QOD 08/04/21 entacapone 200 mg tablet 200 mg PO TID #270 tabs 08/04/21 hydroxyzine HCl 10 mg tablet 10 mg PO QHS PRN itching or 08/04/21 anxiety or insomnia #90 tabs nystatin 100,000 unit/gram topical 1 applic topical BID PRN 08/04/21 powder omeprazole 20 mg capsule,delayed 20 mg PO DAILY #90 caps 08/04/21 release peg 400-propylene glycol (PF) 0.4 1 drp ophthalmic (eye) TID 08/04/21 %-0.3 % eye drops in a dropperette (Systane (PF)) methylphenidate HCl 5 mg tablet 2.5 mg PO BID #30 tabs 11/16/21 sertraline 50 mg tablet 50 mg PO DAILY 01/17/22 acetaminophen 500 mg tablet 1,000 mg PO Q8H PRN 02/21/22 Current Visit Medications: Current Medications Generic Name Dose Route Start Last Admin Trade Name Freq PRN Reason Stop Dose Admin Acetaminophen 0 mg 02/21/22 19:34 Acetaminophen 325 Mg Tab PO Q4H PRN PRN Carbidopa/Levodopa 2 tab 02/21/22 20:00 02/22/22 09:36 Carbidopa 25/Levodopa 100 Tab PO 2 tab TID ASTER Administration Carboxymethylcellulose Sodium 1 each 02/22/22 08:30 02/22/22 09:44 Refresh Plus Eye Drops 0.4ml OP Not Given TID ASTER Cholecalciferol 2,000 units 02/22/22 08:30 02/22/22 09:44 Cholecalciferol (Vitamin D3) 1,000 Unit Tab PO Not Given BID ASTER Dimethicone/Zinc Oxide 0 gm 02/21/22 19:33 Angela Protect Cream 142 Gm Tube TP PRN PRN Furosemide 40 mg 02/22/22 08:30 02/22/22 09:36 Furosemide 20 Mg Tab PO 40 mg DAILY ASTER Administration Hydromorphone HCl 0.5 - 1 mg 02/22/22 09:16 Hydromorphone 2 Mg/Ml Syr IVP Q3H PRN PRN Pain Hydroxyzine HCl 10 mg 02/21/22 19:40 Hydroxyzine Hcl 10 Mg Tab PO HS PRN PRN itching or anxiety or insomnia Ringer's Solution 1,000 mls @ 70 mls/hr 02/21/22 19:45 02/21/22 20:38 IV 70 mls/hr INFUSION ASTER Administration Iron/Minerals/Multivitamins 1 tab 02/22/22 08:30 02/22/22 09:44 Multivitamin W/Minerals Tab PO Not Given DAILY ASTER Levothyroxine Sodium 25 mcg 02/22/22 06:00 02/22/22 06:29 Levothyroxine 25 Mcg Tab PO 25 mcg 0600 ASTER Administration Lorazepam 0.5 mg 02/21/22 21:25 Lorazepam 2 Mg/Ml Vial IVP Q4H PRN PRN Magnesium Hydroxide 30 ml 02/21/22 19:34 Milk Of Magnesia 30 Ml Cup PO DAILY PRN PRN Mirtazapine 15 mg 02/21/22 22:00 02/21/22 21:56 Mirtazapine 15 Mg Tab PO 15 mg HS ASTER Administration Nystatin 0 gm 02/21/22 19:40 Nystatin Powder 60 Gm Jar TP BID PRN PRN Omeprazole 20 mg 02/22/22 07:30 02/22/22 09:37 Omeprazole 20 Mg Capcr PO 20 mg DAILY@0730 ASTER Administration Pt's Own Entacapone 1 each 02/21/22 20:00 200 Mg Tab PO TID ASTER Polyethylene Glycol 17 gm 02/21/22 19:34 Polyethylene Glycol 3350 17 Gm Packet PO DAILY PRN PRN Constipation Sertraline HCl 50 mg 02/22/22 08:30 02/22/22 09:37 Sertraline 50 Mg Tab PO 50 mg DAILY ASTER Administration PFSH Active Problems Active Problems: Problem Status Onset Code Closed intertrochanteric fracture of right hip S72.141A Fall in home W19.XXXA, Y92.009 Vaginal discharge, bloody N89.8 Post-menopausal bleeding N95.0 Tendinitis involving left hip abductors M76.892 Discharge planning issues Z02.9 DVT prophylaxis Z29.9 Hypothyroidism E03.9 Fracture of hip, left, closed S72.002A Overactive bladder N32.81 Short-term memory loss R41.3 Adjustment disorder with mixed anxiety and depressed mood F43.23 Abnormal sensation of buttocks R20.9 Dysphagia R13.10 RLS (restless legs syndrome) G25.81 Scoliosis M41.9 Parkinson disease G20 Osteoarthritis of right knee M17.11 Medical History Medical History Arthritis Carpal tunnel syndrome Heart murmur Incontinence Intermediate coronary syndrome Knee pain, right Kyphosis Macular hole Mitral valve regurgitation Multinodular thyroid Osteoporosis Palpitations Parkinsons disease Physical deconditioning Seborrheic keratoses Tinea corporis Tinea pedis Surgical History Surgical History H/O carpal tunnel repair H/O oophorectomy S/P appendectomy S/P eye surgery ambliopia S/P lumbar spine operation Tobacco Smoking/Tobacco Use Status: Former Tobacco Use Alcohol Alcohol Intake: current Alcohol intake frequency: holidays/special occasions only Substance Use Substance use: Never Substance use type: does not use Vital Signs and Lab Results Vital Signs Most Recent Vital Signs in EMR: Most Recent Vital Signs Temp Pulse Resp BP Pulse Ox 36.9 C 72 17 128/69 93 02/22/22 07:49 02/22/22 07:49 02/22/22 07:49 02/22/22 07:49 02/22/22 07:49 Point of Care Results Point of Care Results: Finger Stick Blood Glucose 94 02/22/22 09:35 Lab Results Result Diagrams: 02/22/22 05:55 02/22/22 05:55 Blood Type / Crossmatch: No Data to Display Complete Blood Count: White Blood Count 6.62 10^3/uL (4.4-10.8) 02/22/22 05:55 Red Blood Count 3.86 10^6/uL (3.93-5.22) L 02/22/22 05:55 Hemoglobin 11.3 g/dL (11.2-15.7) 02/22/22 05:55 Hematocrit 34.6 % (36.0-46.0) L 02/22/22 05:55 Platelet Count 277 10^3/uL (130-400) 02/22/22 05:55 Complete Metabolic Panel: Sodium Level 140 mmol/L (136-145) 02/22/22 05:55 Potassium Level 3.9 mmol/L (3.5-5.1) 02/22/22 05:55 Chloride Level 102 mmol/L (98-107) 02/22/22 05:55 Carbon Dioxide Level 30.6 mmol/L (21.0-32.0) 02/22/22 05:55 Blood Urea Nitrogen 13 mg/dL (7-18) 02/22/22 05:55 Creatinine 0.7 mg/dL (0.55-1.02) 02/22/22 05:55 Estimated GFR/1.73 m2 >= 60.00 (mL/min/1.73m2) 02/22/22 05:55 Calcium Level 8.1 mg/dL (8.5-10.1) L 02/22/22 05:55 Albumin 3.7 g/dL (3.4-5.0) 02/22/22 05:55 Glucose Level 94 mg/dL (74-106) 02/22/22 05:55 Liver Function Panel: Alanine Aminotransferase (ALT/SGPT) 11 U/L (14-59) L 02/22/22 05:55 Aspartate Amino Transf (AST/SGOT) 23 U/L (15-37) 02/22/22 05:55 Coagulation Panel: INR International Normalized Ratio 1.1 (0.9-1.1) 02/22/22 09:33 Prothrombin Time 10.8 sec (9.3-11.0) 02/22/22 09:33 Cardiac Panel: No Data to Display Arterial Blood Gas: No Data to Display Venous Blood Gas: No Data to Display Pancreas Panel: No Data to Display Thyroid Panel: Thyroid Stimulating Hormone (TSH) 2.15 uIU/mL (0.36-3.74) 02/09/22 12:05 Infectious Disease: Coronavirus (COVID-19)(PCR) Negative (Negative) 02/21/22 20:05 Coronavirus 2019 Source Nasal/Nares 02/21/22 20:05 Blood Cultures: No Data to Display Toxicology Panel: No Data to Display Imaging and Studies Imaging and Studies Study information below may be from another EMR and interpreted by another provider. Please see original notes in EMR for more complete details. EKG Summary: 02/21/22: Sinus rhythm...normal P axis, V-rate 60- 99 Probable left atrial enlargement...P >50mS, <-0.10mV V1 Low voltage, extremity leads...all extremity leads <0.5mV. Echocardiogram Summary: 09/2018: LVEF 65-70%, mild MR, mod-severe LA dilation. PAS 35-40 mmhg. Anesthesia Assessment and Plan Anesthesia History Personal History: No History of Anesthesia Complications Family History: No Family History of Anesthesia Complications Exercise Tolerance Exercise Tolerance: Metabolic Equivalents>4 Cardiac & Pulmonary Exam Cardiac Exam: Normal S1/S2 Heart Sounds Pulmonary Exam: Clear Bilateral Breath Sounds Implantable Cardiac Device Does patient have a Pacemaker or an ICD?: No Airway Exam Known Difficult Airway: No Mallampati Class: 1 Mouth Opening: Normal (> 3cm) Thyromental Distance: Greater than 3 cm Neck Range of Motion: Full ROM Neck Circumference: Normal Teeth Condition: Normal Dentition, Removable Dentures/Plates Upper and Removable Dentures/Plates Lower ASA Classification ASA Score: ASA 3 Emergency Case?: No NPO Status NPO Status: NPO Clears >2 hours, Solids >8 hours Anesthesia Plan Resuscitation Status: Full Code Anesthesia Technique: General Anesthesia Airway Planned: LMA Monitors Used: Standard Monitors Preoperative Comments:: 77 yo female for TFNA. Receiving hydromorphone for pain, her carbidopa/levodopa has been continued, but she has not received her entacapone. Sig PMHx: hypothyroid, RLS, Parkinson's. Previous Anes: Hip fracture, spinal attempted not successful, GA with glide 3 grade 1, easy mask.
[2022-02-22] MEDS: Normal Saline Flush 10 ML SYR ×3 (10:36→18:30)
--- NOTE | 2022-02-22 10:45 | PDOC.CMIN ---
- If Service Date Differs Date of service: 02/22/22 Time of Service: 10:45 Care Management Initial Assess REASON FOR HOSPITALIZATION:: Closed intertrochanteris fracture of right hip PAST MEDICAL HISTORY/PAST SURGICAL HISTORY:: All Active Problems . Closed intertrochanteric fracture of right hip (Acute). Fall in home (Acute). Vaginal discharge, bloody (Acute). Post-menopausal bleeding (Acute). Tendinitis involving left hip abductors (Acute). Discharge planning issues (Acute). DVT prophylaxis (Acute). Hypothyroidism (Chronic). Overactive bladder (Chronic). Short-term memory loss (Acute). Adjustment disorder with mixed anxiety and depressed mood (Acute). Abnormal sensation of buttocks (Acute). Dysphagia (Acute). RLS (restless legs syndrome) (Acute). Scoliosis (Acute). Parkinson disease (Chronic). Osteoarthritis of right knee (Chronic). Medical History . Arthritis. Carpal tunnel syndrome. Heart murmur. Incontinence. Intermediate coronary syndrome. Knee pain, right. Kyphosis. Macular hole. Mitral valve regurgitation. Multinodular thyroid. Osteoporosis. Palpitations. Parkinsons disease. Physical deconditioning. Seborrheic keratoses. Tinea corporis. Tinea pedis. Surgical History . H/O carpal tunnel repair. H/O oophorectomy. S/P appendectomy. S/P eye surgery. ambliopia. S/P lumbar spine operation PREVIOUS FUNCTIONAL STATUS/SOCIAL/FAMILY SUPPORTS:: Lucía lives alone in a single family home in [facility]. Her son and his live on the property in their own home. Lucía has 5 other children and several grandchildren. She describes her family as close and supportive. Lucía has Parkinson'e Disease and uses both a cane and a walker at times for ambulatory assistance. She also received meals on Wheels. CURRENT FUNCTIONAL STATUS:: Lucía was sitting up in bed when ROSE met with her. She is scheduled to have surgery this afternoon to repair her fractured hip. Lucía informed ROSE that she is feeling a little fuzzy mentally today. She stated she thought it was from medication. Lucía fractured her other hip in 2019 and went to a correction facility for short term rehab prior to returning home. She indicated that this time she would prefer to go directly home from the hospital as opposed to a SNF, if at all possible. ADVANCE DIRECTIVES:: on file. Tyrell COATES Has patient been provided with info about the portal/API?: Yes Did the patient sign up for the portal?: No CODE STATUS:: Full Code INSURANCE COVERAGE / FINANCIAL ISSUES:: [employer] CURRENT HOME/COMMUNITY SERVICES/EQUIPMENT:: uses a cane and a walker. receives Meals on Wheels PRIMARY CARE PHYSICIAN:: Margoth Allen POTENTIAL DISCHARGE NEEDS:: Follow up with PCP, orthopedic surgeon and plan of care PATIENT/FAMILY EDUCATION NEEDS:: Review of discharge instructions, limitations, follow up plan, activity, discuss Ask Me Three TRANSPORTATION:: to be determined by disposition PLAN:: Lucía will likely be discharged home with new home health services. She will follow up with her PCP and plan of care and transport with family. CM will continue to support Lucía and assess for discharge concerns.
--- NOTE | 2022-02-22 14:30 | DI.RAD_ITS ---
Exam(s) XR HIP RT IN OR EXAM: XR HIP RT IN OR CLINICAL HISTORY: Right hip fracture. TECHNIQUE: 2D digital imaging was performed. COMPARISON: No exams were available for comparison FINDINGS: Fluoroscopy was provided intraoperatively during open reduction internal fixation of intertrochanteri c fracture of the right hip. See procedure report for details. Total fluoroscopy time 30 seconds. Cumulative dose 5.76mGy IMPRESSION: DATA REPOSITORY: RADIATION DOSE DELIVERED:
[2022-02-22] MEDS: Lactated Ringers 1,000 ML 30 ML IV (14:46)
--- NOTE | 2022-02-22 16:17 | W.ANESPOSTOP ---
Postoperative Evaluation Date, Time and Location Date Performed: 02/22/22 Time Performed: 16:17 Patient Location: PACU Vital Signs Most Recent Imported Vital Signs: Most Recent Vital Signs Temp Pulse Resp BP Pulse Ox 36.8 C 75 18 115/49 L 99 02/22/22 15:55 02/22/22 15:55 02/22/22 15:55 02/22/22 15:55 02/22/22 15:55 Pain Score Most Recent Pain Score: Most Recent Pain Score Pain Level [Right Hip] 5 02/21/22 17:33 Pain Level 0 02/22/22 15:55 Assessment Mental Status: Arousable with meaningful communication Airway and Respiratory Function: Patent airway with normal (patient baseline) respiratory exam Cardiovascular Function: Hemodynamically Stable Hydration Status: Adequately Hydrated Nausea & Vomiting: No Nausea or Vomiting Pain: Pain is tolerable per patient Peripheral Nerve Block: Patient did not receive a nerve block
--- NOTE | 2022-02-22 17:49 | ROE_ITS ---
Date of service: 02/22/22 Time of Service: 15:40 Operative Note Operative Note DATE OF PROCEDURE: 02/22/22 PRE-OP DIAGNOSIS: Right Intertrochanteric Femur Fracture POST-OP DIAGNOSIS: same PROCEDURE: Right Intramedullary Fixation of Proximal Femur Fracture SURGEON: Stephan Arambula ANESTHESIA TYPE: General LMA/ETT Refer to Anesthesia Record ESTIMATED BLOOD LOSS: 100 PATHOLOGY: none sent COMPLICATIONS: None Patient was transported to: PACU Patient's condition: stable Implants: Depuy-Synthes TFNA 11mm x 170mm Indications: Christiana is a 77 year old female who presented to the Emergency Department after a fall. X-rays confirmed the diagnosis of a intertrochanteric fracture of the proximal femur. I reviewed the possible treatment options and given the fracture of the femur, I recommened operative fixation. I discussed the technical details of the surgery. I reviewed the risks such as bleeding, infection, pain, stiffness, malunion, nonunion, hardware prominence, hardware faiilure, malrotation, avascular necrosis, blood clot. Despite these risks, she agreed to proceed. Findings: There was a fracture of the proximal femur which was able to be reduced with traction and internal rotation and external manipulation. Procedure Description: Christiana was greeted in the preoperative area. Consent was previously reviewed and signed. Once in the operating room, general anesthesia was administered. Both feet were padded with web roll and wrapped with Coban and placed into the boots for the [place] table. The patient was transferred to the HANA table in the supine position. She was positioned onto the perineal post. All bony prominences were well padded. The arm of the operative side was then placed across the chest and secured. The contralateral arm was placed onto the armrest and well-padded. The nonoperative leg was scissored and extended. A gentle reduction was then performed with traction and internal rotation and gentle external manipulation. This was confirmed to be anatomically reduced based on the x-ray. A single dose of TXA, 1 gram, was then administered IV. Prophylactic antibiotics, Cefazolin 2 grams, was given for prophylactic antibiotics. A timeout was performed for safe surgery. The right leg was prepped with Chloraprep. A shower curtain drape was placed. Using fluoroscopy, the starting point was marked over the lateral hip, proximal to the tip of the greater trochanter. A 3cm incision was made through skin and the fascia of the gluteus musculature until the tip of the trochanter was palpable. The starting wire was placed onto the tip, just slightly on the media aspect, and centered in the AP plane. Using a mary, the starting guide wire was buried into the bone. A lateral x-ray confirmed appropriate position and the guidewire was advanced to the level of the lesser trochanter. With a tissue protector, the proximal femur was opened with the opening reamer. The short TFNA was chosen for this case and a Synthes TFNA [id number] nail was selected and opened on the back table. The nail was assembled to the aiming arm on the back table and confirmed to be aligned with the triple sleeve for blade insertion. Using manual force the nail was advanced into the femur. A few light mallet blows advanced the nail to its appropriate position. The triple sleeve was inserted through the targeting arm and the skin, soft tissue, and IT band was then incised. The triple sleeve was advanced down to the lateral femur. A guidewire was advanced into the femoral head where it was noted to be centered. A lateral x-ray was used to confirm centered positioning on the lateral. Happy with the length of the guidewire, this was measured. A 90mm helical blade was opened. The lateral cortex was opened. The helical blade was malletted into position and confirmed to be appropriately located on fluoroscopy. The set screw was advanced to a half turn shy of fully tightened, allowing for the helical blade to slide. The targeting device was removed. AP and lateral x-rays of the hip confirmed appropriate positioning within the femur and with good alignment of the fracture. Using the targeting arm, the skin was incised for placement of the distal locking screw. The trochar was inserted through the skin and IT band down onto the lateral cortex of the femur. The 4.2mm drill was advanced across the femur and through the nail. This was measured and an appropriately sized 5.0mm screw was placed. The targeting arm was removed. Final x-rays were obtained. The wounds were thoroughly irrigated. A cocktail consisting of 123mg of Ropivacaine, 0.25mg of Epinephrine, 0.04mg of Clonidine, and 15mg of Ketorolac was injected throughout the wounds both deep and superficially. The deep fascia of the proximal wound was reapproximated with a 0 Vicryl. The deep tisses were closed with a 2-0 Vicryl and the skin was closed with a running subcuticular Monocryl. These were reinforced with Skin Affix skin glue. The wounds were logan ssed with a Mepilex silver dressing. At the end of the case, all counts were correct. Christiana tolerated the procedure well without known complication and was taken to the PACU for recovery. Physica l therapy will start post-operatively, weigh-bearing as tolerated with assistive devices. Anticoagulation will start within 12-24 hours. 3 doses of post- operative antibitiocis for prophylaxis will be administered.
[2022-02-22] MEDS: Ketorolac 15 MG/ML VIAL IVP (18:29)
[2022-02-22] MEDS: Refresh PLUS Eye Drops 0.4ml 1 EACH OP (20:03)
[2022-02-22] MEDS: Cholecalciferol (Vitamin D3) 1,000 UNIT TAB 2000 UNITS PO (20:03)
[2022-02-22] MEDS: ceFAZolin 1 GM/50 ML BAG IVPB (20:04)
[2022-02-22] MEDS: Lactated Ringers 1,000 ML 70 ML IV (21:30)
[2022-02-22] MEDS: Mirtazapine 15 MG TAB PO (22:10)
[2022-02-22] MEDS: hydrOXYzine HCL 10 MG TAB PO (22:10)
[2022-02-23] MEDS: Ketorolac 15 MG/ML VIAL IVP ×4 (00:33→18:36)
[2022-02-23] MEDS: ceFAZolin 1 GM/50 ML BAG IVPB ×2 (04:00→12:11)
[2022-02-23] MEDS: Levothyroxine 25 MCG TAB PO (05:31)
[2022-02-23 07:50] VITALS: BP 150/70; PULSE 78; RESP 16; TEMP 36.9; O2SAT 93
[2022-02-23] MEDS: Cholecalciferol (Vitamin D3) 1,000 UNIT TAB 2000 UNITS PO ×2 (08:38→20:09)
[2022-02-23] MEDS: Multivitamin w/Minerals TAB 1 TAB PO (08:38)
[2022-02-23] MEDS: Furosemide 20 MG TAB 40 MG PO (08:39)
[2022-02-23] MEDS: Omeprazole 20 MG CAPCR PO (08:39)
[2022-02-23] MEDS: Carbidopa 25/Levodopa 100 TAB PO ×3 (08:39→20:09)
[2022-02-23] MEDS: Sertraline 50 MG TAB PO (08:39)
--- NOTE | 2022-02-23 09:28 | PT.INIE ---
Date of service: 02/23/22 Time of Service: 09:28 PT Notes Visit Reasons: Right Intertrochanteric Hip Fracture Physical Therapy Inpatient Initial Evaluation Date: 02/23/2022 Referring Doctor: Stephan Arambula MD PT Orders: PT CONSULT: S/P date of surgery. S/p IMN right hip fracture Precautions: Fall. Standard. WBAT on right LE with AD. Patient Profile/Admitting Diagnosis: Christiana is a 77-year-old female with Parkinson's disease who sustained a trochanteric fracture of the right from a mechanincal fall and is status post right IMN fixation on postoperative day 1. PMHX: All Active Problems? Closed intertrochanteric fracture of right hip (Acute) Fall in home (Acute) Vaginal discharge, bloody (Acute) Post-menopausal bleeding (Acute) Tendinitis involving left hip abductors (Acute) Discharge planning issues (Acute) DVT prophylaxis (Acute) Hypothyroidism (Chronic) Overactive bladder (Chronic) Short-term memory loss (Acute) Adjustment disorder with mixed anxiety and depressed mood (Acute) Abnormal sensation of buttocks (Acute) Dysphagia (Acute) RLS (restless legs syndrome) (Acute) Scoliosis (Acute) Parkinson disease (Chronic) Osteoarthritis of right knee (Chronic) Medical History? Arthritis Carpal tunnel syndrome Heart murmur Incontinence Intermediate coronary syndrome Knee pain, right Kyphosis Macular hole Mitral valve regurgitation Multinodular thyroid Osteoporosis Palpitations Parkinsons disease Physical deconditioning Seborrheic keratoses Tinea corporis Tinea pedis Surgical History? H/O carpal tunnel repair H/O oophorectomy S/P appendectomy S/P eye surgery ambliopiaS/P lumbar spine operation Social History/Home Situation: Lives alone in a private residence with a flight of steps to enter, bilateral rails.? Son and son's family live across from her house. For the past 3 years Christiana has had a lady come in from 11 AM to 1 PM Mondays through Fridays to help with meals and house chores.? Son and son's family are also involved with patient's care. Christiana indicates having had 6-8 falls in the past year.? Now uses her 4WW. Has [employer] alert device. Used to be a a teacher's aid in kindergarten and pre-K. DME: 4WW,? [facility] Subjective: Complained of significant pain in the R hip with weight bearing that quickly subsided during the short walk down to a 6/10. Debra decreased. gait antalgic over Parkinsonian gait. Moderate cues given for heel-toe gait pattern and increased step height to tolerance. Objective: General Observation: Supine in bed. IV in R UE. Hills catheter in place. Mental Status: Alert and oriented as to person, place, time, and purpose. Able to pay attention, focus, and respond appropriately. Pain: 6/10 in R hip; 0/10 at rest Vital Signs: WNL as closley monitored by nursing ROM: Able to slide heel to about 110 degrees hip flexion and 90 degrees of knee flexion on the L side. 60 degrees at the hip and 45 degrees at the knee on the R side. Dorsiflexion to neutral only on B sides. Strength: Right Lower Extremity: Hip flexors 3-/5. Knee flexors 3-/5. Knee extensors 3-/5. Ankle dorsiflexors 3-/5. Ankle plantarflexors 3-/5. Left Lower Extremity: Hip flexors 3-/5. Knee flexors 3-/5. Knee extensors 3-/5. Ankle dorsiflexors 3-/5. Ankle plantarflexors 3-/5. Bed Mobility/Transfers: Supine to sit with minimal assist Sit to stand with minimal assist Stand to sit with contact-guard assist, Bed to bedside commode with minimal assist Bedside comm[facility] to [facility] [place] [facility] Gait: Instructed patient with level surface ambulation of 30 feet requiring minimal assist. Debra decreased. Step height decreased. Gait antalgic. Chronic Parkinsonian gait. Balance: Static Sitting: Good Dynamic Sitting: Fair Static Standing: Fair Dynamic Standing: Fair Special Tests: Mobility Limitations Standardized Measure [facility] AM-PAC 6 clicks Basic Mobility Inpatient Short Form: Raw Score: 17CMS Score: 51% deficit Informed Consent/Education: Patient was instructed in purpose of PT consult and plan of care. Agreeable to proceed with established PT POC to achieve personal goals. Assessment: Needs to be premedicated for pain and for Parkinson's disease to maximize functional performance. Christiana torrez demonstrate functional mobility and requiring the use of FWW for all mobility ADL performance with assistance of 1 person. Patient presents with clinical signs and symptoms consistent with current/admitting diagnoses that have resulted to mobility limitations, gait instability, generalized weakness, and overall ADL decline as demonstrated by the following impairment level findings: 1. Decreased strength to B LE major muscle groups 2. Impaired sitting/standing balance 3. Impaired activity tolerance 4. Limitation of joint range of motion in right hip 5. Pain in right hip 6. Chronic lymphedema in right LE Impairments are contributing to the following functional limitations: 1. Decline in bed mobility skills 2. Decline in transfer skills 3. Difficulty with ambulation without assistive device and physical. 4. Increased completion time for mobility ADL performance 5. Increased risk for falls 6. Difficulty with managing steps alone safely Patient is assessed as a 28567 high complexity based on the following: History: 77 [id number] with past medical history as indicated above Examination: Demonstrable impairment in strength, balance, and mobility level with underlying impairments and functional limitations as exhibited above as well as deficit score of 71% utilizing the [facility] Mobility Inpatient Short Form Presentation: Evolving Decision Makin moderate complexity Goals: Goals X1 week 1. Supine-Sit independent 2. Sit-Supine independent 3. Sit-Stand independent 4. Stand-Sit independent with FWW 5. Bed-Chair independent with FWW 6. Chair-Bed independent with FWW 7. Supervision with gait on level surface with use of FWW for at least 300 feet without report of pain nor dyspnea 9. Good static and dynamic standing balance/tolerance Plan of Care/Treatment Plan: 1-2x/day, 7 days/week x 1 week. Plan of care has been reviewed with the TRIMMER CLIMBER providing the service under Physical Therapy direction. Initiate Physical Therapy intervention for pain management as needed, strengthening, bed mobility, transfers, gait, stairs, balance training, and use of assistive device. DISCHARGE RECOMMENDATIONS: [] Home with no services [] [] Home with services [specify] [] Home with outpatient PT [] [X] SNF for continued rehabilitation. Patient will benefit from alf facility placement for continued skilled physical therapy services in order to progress mobility level, strength, and balance in preparation for a safe discharge to home. [] [facility] [] [] SNF versus LTC based on ability to participate and progress [] TREATMENT CODE/TIME: 31865 x 30 minutes, 46607 x 12 minutes beginning at 9:28 AM. Thank you for the opportunity to participate in the care of this patient. Katelyn Pedro PT, DPT, CLT [facility] [place], [place]
[2022-02-23 11:05] LABS: Abs Immature Grans 0.05 10^3/uL (0.0-0.06); Absolute Basophil Count 0.06 10^3/uL (0.0-0.2); Absolute Eosinophil Count 0.26 10^3/uL (0.0-0.7); Absolute Lymphocyte Count 1.04 10^3/uL (1.2-3.4); Absolute Monocyte Count 1.13 10^3/uL (0.1-0.8); Absolute Neutrophil Count 7.16 10^3/uL (1.2-6.7); Basophils % 0.6; Eosinophils % 2.7; HCT 30.5 % (36.0-46.0); HGB 9.9 g/dL (11.2-15.7); Immature Grans % 0.5; Lymphocytes % 10.7; MCH 29.4 pg (27.0-33.0); MCHC 32.5 % (32.0-36.0); MCV 91 fL (80-95); Monocytes % 11.6; Neutrophils % 73.9; Platelet Count 235 10^3/uL (130-400); RBC 3.37 10^6/uL (3.93-5.22); RDW 12.9 % (11.7-14.6); RDW-SD 42.6 fL
[2022-02-23] MEDS: Acetaminophen 325 MG TAB 650 MG PO ×2 (12:12→18:35)
[2022-02-23] MEDS: Normal Saline Flush 10 ML SYR IVP ×3 (12:13→20:11)
--- NOTE | 2022-02-23 13:34 | PT.INTREAT ---
Date of service: 02/23/22 Time of Service: 12:45 PT Notes Visit Reasons: Right Intertrochanteric Hip Fracture Inpatient Physical Therapy Treatment Note [facility] Date: 02/23/2022 PRECAUTIONS: Activity as tolerated, Fall, WBAT R LE SUBJECTIVE: Lucía is pleasant and agreeable to participating in PT. She states that she is fearful of using the FWW versus the 4WW (which is her baseline). She states that she feels like she is going to fall backwards which is attributing to her cautious and slow pacing. OBJECTIVE: PAIN: Patient c/o discomfort in R hip area with transfers and bed mobility. BED MOBILITY/TRANSFERS Sit-supine: Min A of B LE Sit-stand: CGA Stand-sit: SBA GAIT: Assistive Device: FWW Weight bearing: WBAT R LE Assistance: CGA-SBA Distance: 5' + 20' Deviation: Antalgic gait, slow pacing, cueing for FWW management for safety THEREX: Patient was instructed in a LE strengthening and stabilization program, completed in a supine position, to include: ankle pumps, glute sets, quad sets, heels slides, and hip abduction (with assist). TOILETING: Patient toileted with assist, using bedside commode. ASSESSMENT: Patient tolerated session with c/o R hip discomfort with ther ex, transfers and bed mobility. She was able to tolerate gait training with CGA-SBA only, although demonstrates an antalgic gait pattern and requires cueing for FWW management for safety. PLAN: Continue with gait and transfer training and LE strengthening, as tolerated, for improved mobility and activity tolerance. TREATMENT CODE/TIME: 40 minutes; 40425 x2, 99035 (12:45)
[2022-02-23 14:51] VITALS: BP 106/65; PULSE 68; RESP 15; TEMP 36.9; O2SAT 91
--- NOTE | 2022-02-23 16:18 | W.PM.PROGNOT ---
Date of Service Date of service: 02/23/22 Time of Service: 15:18 Assessment and Plan Assessment and plan (1) Closed intertrochanteric fracture of right hip: Status: Acute Assessment and plan: s/p ORIF w/ intramedullary nailing of right IT femur fracture. Patient has begun P.T. today and ambulated from bed to the doorway. Patient will continue to work w P.T. and depending on progress may need SNF (vs home w/ home health and P.T.; however she lives alone and therefore would do better in SNF). continue to monitor her blood count. begin on iron supplementation. Pain is controlled w/ Tylenol and ketorolac. she also has prn tramadol and iv dilaudid prn. (2) Adjustment disorder with mixed anxiety and depressed mood: Status: Acute Assessment and plan: cont. zoloft (3) Closed head injury without loss of consciousness: Status: Acute Assessment and plan: no headaches (4) Constipation: Status: Acute Assessment and plan: moving her bowels. continue current bowel regimen (milk of magnesium, mirlax; will add scheduled docusate) (5) Depression: Status: Chronic (6) GERD (gastroesophageal reflux disease): Status: Chronic Assessment and plan: cont. omeprazole (7) Hypothyroidism: Status: Chronic Assessment and plan: cont. levothryoxine 25 mcg daily (8) Parkinson disease: Status: Chronic Assessment and plan: cont. sinemet (9) DVT prophylaxis: Status: Acute Assessment and plan: not currently on any anticoagulation. I have added heparin 5000 units SC Q8hr (10) Discharge planning issues: Status: Acute Assessment and plan: will ask CM to make SNF referrals; however, patient prefers to return home (she indicated to CM that she will have help from her son). We will see how she progresses over the next couple days Subjective Subjective Interval history since last seen: Patient has no acute complaints. She says she walked with physical therapy with use of walker going from her bed to the doorway of her room. If pain is well controlled. Exam Narrative Exam Narrative: Patient is alert/oriented x 3, no distress or discomfort Lungs: clear Heart: RRR Abdomen: soft, nontender; she states that she had a BM Extremities: right hip w/ bandage in place, minimal tenderness over right proximal hip, minimal bruising she moves her right foot and lower leg well; normal pulses, normal sensation Objective Last Vital Signs Temp 36.9 C 02/23/22 14:51 Pulse 68 02/23/22 14:51 Resp 15 02/23/22 14:51 BP 106/65 02/23/22 14:51 Pulse Ox 91 L 02/23/22 14:51 Laboratory Results - last 24 hr 02/23/22 10:40 WBC 9.70 RBC 3.37 L Hgb 9.9 L Hct 30.5 L MCV 91 MCH 29.4 MCHC 32.5 RDW 12.9 Plt Count 235 MPV 10.0 Immature Gran % 0.5 Neutrophils % 73.9 Lymphocytes % 10.7 Monocytes % 11.6 Eosinophils % 2.7 Basophils % 0.6 Nucleated RBC % 0.0 Absolute Neutrophils 7.16 H Absolute Lymphocytes 1.04 L Absolute Monocytes 1.13 H Absolute Eosinophils 0.26 Absolute Basophils 0.06
--- NOTE | 2022-02-23 16:40 | PDOC.CMPRO ---
- If Service Date Differs Date of service: 02/23/22 Time of Service: 16:40 Care Management Progress Note S/O: Lucía was sitting up in a chair when CM met with her. She stated that she is feeling tired today. CM discussed her discharge plan with her, as SNF is being recommended by PT and MD. She stated that she would prefer to return home, and that her son is planning to stay with her while she is recovering from surgery. Per MD, she will likely remain over the weekend, and PT feels that she may be ready to discharge home early next week, depending on her progress at that time. CM will continue to follow. A: Christiana is a 77 year old female admitted to [facility] on 02/21/22 with R hip fracture. P: Lucía will likely be discharged home with new home health services. She will follow up with her PCP and plan of care and transport with family. CM will continue to support Lucía and assess for discharge concerns.
--- NOTE | 2022-02-23 19:00 | PGE_ITS ---
Date of Service Date of service: 02/23/22 Time of Service: 13:05 Assessment and Plan Assessment and plan (1) Closed intertrochanteric fracture of right hip: Status: Acute Assessment and plan: Christiana is a 77 year old female who is POD#1 s/p IMN fixation of right intertrochanteric hip fracture. She is doing well. She has already mobilized to the hallway which is great progress for the first day. I have encouraged her with this. There are no acute issues at this time. Continue with routine pain management. WBAT with assistive device. PT. Discharge planning. DVT pr ophylaxis may begin. Subjective Subjective Interval history since last seen: Christiana reports to be doing well. She was able to take a few steps with physical therapy and feels that the pain is controlled. She denies any chest pain or shortness of breath. No acute issues. Exam Narrative Exam Narrative: Sitting on the edge of the bed after waling. RLE dressing c/d/i. Swelling present without significant ecchymosis. Thigh soft and compressible. 2+ edema of the RLE. No significant pain with ER/IR of the right hip.
[2022-02-23] MEDS: hydrOXYzine HCL 10 MG TAB PO (20:09)
[2022-02-23] MEDS: Ferrous Gluconate 324 MG TAB PO (20:10)
[2022-02-23] MEDS: Refresh PLUS Eye Drops 0.4ml 1 EACH OP (20:10)
[2022-02-23] MEDS: Milk of Magnesia 30 ML CUP PO (20:10)
[2022-02-23] MEDS: Mirtazapine 15 MG TAB PO (22:03)
[2022-02-23 23:35] VITALS: BP 96/59; PULSE 64; RESP 17; TEMP 35.4; O2SAT 92
[2022-02-24] MEDS: Heparin 5,000 UNITS/ML VIAL 5000 UNITS SC ×4 (00:06→22:18)
[2022-02-24] MEDS: Ketorolac 15 MG/ML VIAL IVP ×3 (00:07→11:51)
[2022-02-24] MEDS: Acetaminophen 325 MG TAB 650 MG PO ×4 (00:07→18:52)
[2022-02-24] MEDS: traMADol 50 MG TAB PO (04:31)
[2022-02-24 06:45] LABS: Abs Immature Grans 0.02 10^3/uL (0.0-0.06); Absolute Basophil Count 0.06 10^3/uL (0.0-0.2); Absolute Eosinophil Count 0.27 10^3/uL (0.0-0.7); Absolute Lymphocyte Count 1.43 10^3/uL (1.2-3.4); Absolute Neutrophil Count 4.26 10^3/uL (1.2-6.7); Basophils % 0.9; Eosinophils % 3.9; HGB 9.6 g/dL (11.2-15.7); Immature Grans % 0.3; Lymphocytes % 20.9; MCH 29.4 pg (27.0-33.0); MCHC 33.1 % (32.0-36.0); MCV 89 fL (80-95); MPV 10.1 fL (8.0-11.0); Monocytes % 11.7; Neutrophils % 62.3; Platelet Count 243 10^3/uL (130-400); RBC 3.26 10^6/uL (3.93-5.22); RDW 12.8 % (11.7-14.6); RDW-SD 41.9 fL; WBC 6.84 10^3/uL (4.4-10.8)
[2022-02-24] MEDS: Levothyroxine 25 MCG TAB PO (06:45)
[2022-02-24 06:57] LABS: BUN 12 mg/dL (7-18); CREATININE 0.8 mg/dL (0.55-1.02); Calcium 7.9 mg/dL (8.5-10.1); Chloride 104 mmol/L (98-107); Glucose 90 mg/dL (74-106); Potassium 3.4 mmol/L (3.5-5.1); Sodium 139 mmol/L (136-145)
[2022-02-24] MEDS: Refresh PLUS Eye Drops 0.4ml 1 EACH OP ×3 (08:19→22:17)
[2022-02-24] MEDS: Carbidopa 25/Levodopa 100 TAB PO ×2 (08:19→16:10)
[2022-02-24] MEDS: Furosemide 20 MG TAB 40 MG PO (08:19)
[2022-02-24] MEDS: Cholecalciferol (Vitamin D3) 1,000 UNIT TAB 2000 UNITS PO ×2 (08:19→22:16)
[2022-02-24] MEDS: Sertraline 50 MG TAB PO (08:19)
[2022-02-24] MEDS: Ferrous Gluconate 324 MG TAB PO ×2 (08:19→22:17)
[2022-02-24] MEDS: Omeprazole 20 MG CAPCR PO (08:19)
[2022-02-24] MEDS: Docusate Sodium 100 MG/10 ML CUP PO ×2 (08:19→22:17)
[2022-02-24] MEDS: Multivitamin w/Minerals TAB 1 TAB PO (08:19)
--- NOTE | 2022-02-24 08:50 | PTTR_ITS ---
Date of service: 02/24/22 Time of Service: 07:49 PT Notes Visit Reasons: Right Intertrochanteric Hip Fracture Inpatient Physical Therapy Treatment Note [facility] Date: 02/24/2022 PRECAUTIONS: Activity as tolerated, Fall, WBAT R LE SUBJECTIVE: Lucía is pleasant and agreeable to participating in PT. She reports feeling dizzy this morning. She states that her children have set up caregivers at home for her, and that they will also be taking turns caring for her while she recovers. She hopes to discharge to home, but understands that she may need a few more days here vs ST rehab. OBJECTIVE: PAIN: No c/o pain in a.m.; patient c/o R hip discomfort in p.m. with gait training and ther ex BED MOBILITY/TRANSFERS Supine-sit: Min A of B LE in a.m.; S in p.m. Sit-supine: S with leg structural steel engineer Sit-stand: SBA Stand-sit: SBA Bed-chair: SBA with 4WW GAIT: Assistive Device: 4WW Weight bearing: WBAT R LE Assistance: SBA Distance: 60' Deviation: Slightly antalgic gait, improved gait mechanics and pacing with use of 4WW versus FWW in a.m.; antalgic gait and c/o R hip discomfort in p.m. THEREX: Patient was instructed in a LE strengthening and stabilization program, completed in a supine position, to include: ankle pumps, glute sets, quad sets, heels slides, and hip abduction (with assist). ASSESSMENT: Patient tolerated session without c/o R hip discomfort. She demonstrates improved gait mechanics as well as pacing with use of 4WW vs FWW. She continues to require assist for bed mobility due to B LE weakness. PLAN: Continue with gait and transfer training and LE strengthening, as tolerated, for improved mobility and activity tolerance. TREATMENT CODE/TIME: Session 1: 24 minutes; [id number], [id number] (07:49) Session 2: 33 minutes; [id number], [id number] (13:02)
[2022-02-24 08:53] VITALS: BP 113/66; PULSE 71; RESP 16; TEMP 36.7; O2SAT 96
[2022-02-24] MEDS: Potassium Chloride 20 MEQ TABCR 40 MEQ PO (11:08)
[2022-02-24] MEDS: Normal Saline Flush 10 ML SYR IVP (11:52)
[2022-02-24 14:25] VITALS: BP 121/68; PULSE 70; RESP 17; TEMP 36.7; O2SAT 93
--- NOTE | 2022-02-24 15:58 | CMPROGNOTE_ITS ---
- If Service Date Differs Date of service: 02/24/22 Time of Service: 15:58 Care Management Progress Note S/O: Lucía was sitting up in bed when CM met with her. She had several questions about her upcoming discharge, which will likely happen early next week, as per MD, she will likely remain at [facility] over the weekend. CM stated that she would have new HH orders, and the plan is that her son and his family will stay with her while she recovers. CM discussed financial assistance, as she is concerned about getting a bill after discharge. She stated that she owns her 4WW, that her friends purchased for her. She stated that she feels that she is doing well, and she is well cared for here. CM will continue to follow. A: Christiana is a 77 year old female admitted to [facility] on 02/21/22 with R hip fracture. P: Lucía will likely be discharged home with new home health services. She will follow up with her PCP and plan of care and transport with family. CM will continue to support Lucía and assess for discharge concerns.
[2022-02-24] MEDS: Ondansetron O.D.T. 4 MG TABEF PO (16:10)
--- NOTE | 2022-02-24 16:12 | PDOC.HHF2F_ITS ---
Home Health Certification Home Health Certification: 1. Encounter Date and Reason I certify that Christiana Coelho was seen by Trixie Lewis NP on 02/24/22 and that I had a [id number] encounter with this patient that meets the physician face to face encounter requirements. 2. Clinical Findings Supporting Skilled Need and Homebound Status I certify that home health services are medically necessary, include either intermittent custodial and/or physical/speech therapy, and that this patie nt is homebound in that absences from the home require considerable and taxing effort and are infrequent or of short duration, or are attributable to the need to receive medical care. [X] (a) Attached documentation from encounter provides clinical findings supporting skilled need and homebound status (including what assistance patient requires to leave the home). The encounter with the patient was in whole, or in part, for the following medical condition, which is the primary reason for home health care: Right Intertrochanteric Hip Fracture Nursing Home: Resume care Physical Therapy: For strengthening and Speech Therapy: Homebound: 3. Certification and Authentication I certify that I composed the above information based on my clinical judgement relating to this patient's medical condition and, if applicable, clinical findings communicated to me by the NPP or inpatient physician who performed the Home Health Referral. All further orders will be obtained through (Community Based Physician - PCP)
--- NOTE | 2022-02-24 16:55 | W.PM.PROGNOT ---
Date of Service Date of service: 02/24/22 Time of Service: 15:56 Assessment and Plan Assessment and plan (1) Closed intertrochanteric fracture of right hip: Status: Acute Assessment and plan: 77 year old female who is POD#1 s/p fixation of right intertrochanteric hip fracture. She has been up in the holder with PT, she states she aches, but it's minimal. On heparin for DVT prophalaxis Reviewed POC w Dr Felix Subjective Subjective Patient reports: no new complaints Exam Narrative Exam Narrative: Sitting on her bed, RLE dressing c/d/i. Swelling present without significant ecchymosis. Thigh soft and compressible. 2+ edema of the RLE. States she was up and feeling good about it. Objective Last Vital Signs Temp 36.7 C 02/24/22 14:25 Pulse 70 02/24/22 14:25 Resp 17 02/24/22 14:25 BP 121/68 02/24/22 14:25 Pulse Ox 93 02/24/22 14:25 Laboratory Results - last 24 hr 02/24/22 02/24/22 05:42 05:42 WBC 6.84 RBC 3.26 L Hgb 9.6 L Hct 29.0 L MCV 89 MCH 29.4 MCHC 33.1 RDW 12.8 Plt Count 243 MPV 10.1 Immature Gran % 0.3 Neutrophils % 62.3 Lymphocytes % 20.9 Monocytes % 11.7 Eosinophils % 3.9 Basophils % 0.9 Nucleated RBC % 0.0 Absolute Neutrophils 4.26 Absolute Lymphocytes 1.43 Absolute Monocytes 0.80 Absolute Eosinophils 0.27 Absolute Basophils 0.06 Sodium 139 Potassium 3.4 L Chloride 104 Carbon Dioxide 29.0 Anion Gap 6.0 BUN 12 Creatinine 0.8 Estimated GFR/1.73 m2 >= 60.00 Glucose 90 Calcium 7.9 L Reviewed Pertinent PMH: Yes
--- NOTE | 2022-02-24 21:48 | PGE_ITS ---
Date of Service Date of service: 02/26/22 Time of Service: 10:00 Assessment and Plan Assessment and plan (1) Closed intertrochanteric fracture of right hip: Status: Acute Assessment and plan: POD#4 s/p fixation of right intertrochanteric hip fracture. She has been re-ambulated with PT, on discharge she [place] [facility] case mgt is working on getting her there. continue bowel management, pain management, pulmonary toilet (routine post operative care) On heparin for DVT prophylaxis (2) Adjustment disorder with mixed anxiety and depressed mood: Status: Acute Assessment and plan: cont. zoloft (3) Closed head injury without loss of consciousness: Status: Resolved Assessment and plan: no headaches (4) Constipation: Status: Acute Assessment and plan: moving her bowels. continue current bowel regimen with daily miralax (5) GERD (gastroesophageal reflux disease): Status: Chronic Assessment and plan: cont. omeprazole (6) Hypothyroidism: Status: Chronic Assessment and plan: cont. levothryoxine 25 mcg daily TSH 2.12 February 09, 2022 (7) Parkinson disease: Status: Chronic Assessment and plan: cont. sinemet (8) DVT prophylaxis: Status: Acute Assessment and plan: continue heparin 5000 units SC Q8hr will likely discharge on asa for dvt prophylaxis per orthopedic recommendations (9) Discharge planning issues: Status: Acute Assessment and plan: will need SNF referral prior to returning home case management following discussed with Dr Felix Subjective Subjective Interval history since last seen: She discussed disposition with her family and she would like to go [place] [facility]. Exam Const General: cooperative Nutritional Appearance: thin Orientation: alert, awake and oriented x3 HENMT Head: normal to inspection Ears: external ears normal General nose exam: external nose normal Face and sinus: normal facial exam Eyes General: appearance normal, both eyes and all related structures Neck Neck: normal visual inspection Chest Chest: normal inspection of the chest Resp Effort & Inspection: normal respiratory effort and able to speak in complete sentences Auscultation: clear to auscultation bilaterally Cardio Rate: regular rate Rhythm: regular rhythm Pulses: dorsalis pedis present GI Inspection: normal to inspection Palpation: soft and nontender Auscultation: normal bowel sounds Other: Hills catheter in place and patent. Skin General skin exam: no rashes or lesions noted Neuro General: patient alert and patient awake Cognition: normal cognition Speech: speech normal Motor: strength 5/5 throughout (Except to right lower extremity.) and no tremors Extrem Right lower extremity: edema; ROM limited Left lower extremity: no edema Other: Right lower extremity shortened and externally rotated. Right foot pedal edema with intact DP and PT pulses. No tenderness to palpation to right ankle or foot. No pain with range of motion or tenderness to palpation of right elbow. Bilateral upper extremities with full range of motion without pain. Left lower extremity with full range of motion without pain. Psych Appearance: grossly normal Mental Status: mental status grossly normal Speech and Movement: speech and movement normal Affect: normal affect Thought Process: normal Objective Last Vital Signs Temp 36.7 C 02/24/22 14:25 Pulse 70 02/24/22 14:25 Resp 17 02/24/22 14:25 BP 121/68 02/24/22 14:25 Pulse Ox 93 02/24/22 14:25 Laboratory Results - last 24 hr 02/24/22 02/24/22 05:42 05:42 WBC 6.84 RBC 3.26 L Hgb 9.6 L Hct 29.0 L MCV 89 MCH 29.4 MCHC 33.1 RDW 12.8 Plt Count 243 MPV 10.1 Immature Gran % 0.3 Neutrophils % 62.3 Lymphocytes % 20.9 Monocytes % 11.7 Eosinophils % 3.9 Basophils % 0.9 Nucleated RBC % 0.0 Absolute Neutrophils 4.26 Absolute Lymphocytes 1.43 Absolute Monocytes 0.80 Absolute Eosinophils 0.27 Absolute Basophils 0.06 Sodium 139 Potassium 3.4 L Chloride 104 Carbon Dioxide 29.0 Anion Gap 6.0 BUN 12 Creatinine 0.8 Estimated GFR/1.73 m2 >= 60.00 Glucose 90 Calcium 7.9 L Reviewed Pertinent PMH: Yes
[2022-02-24] MEDS: Mirtazapine 15 MG TAB PO (22:17)
[2022-02-25 00:05] VITALS: BP 169/84; PULSE 73; RESP 17; TEMP 35.2; O2SAT 95
[2022-02-25] MEDS: Acetaminophen 325 MG TAB 650 MG PO ×3 (00:22→11:39)
[2022-02-25] MEDS: Levothyroxine 25 MCG TAB PO (05:14)
[2022-02-25] MEDS: Heparin 5,000 UNITS/ML VIAL 5000 UNITS SC ×3 (05:15→21:30)
[2022-02-25] MEDS: Carbidopa 25/Levodopa 100 TAB PO ×3 (05:15→15:50)
[2022-02-25 06:27] LABS: Abs Immature Grans 0.02 10^3/uL (0.0-0.06); Absolute Eosinophil Count 0.24 10^3/uL (0.0-0.7); Absolute Lymphocyte Count 1.72 10^3/uL (1.2-3.4); Absolute Monocyte Count 0.52 10^3/uL (0.1-0.8); Absolute Neutrophil Count 3.08 10^3/uL (1.2-6.7); Basophils % 1.8; Eosinophils % 4.2; HCT 30.4 % (36.0-46.0); HGB 9.9 g/dL (11.2-15.7); Immature Grans % 0.4; Lymphocytes % 30.3; MCH 29.3 pg (27.0-33.0); MCHC 32.6 % (32.0-36.0); MCV 90 fL (80-95); MPV 9.8 fL (8.0-11.0); Monocytes % 9.2; Neutrophils % 54.1; Platelet Count 276 10^3/uL (130-400); RBC 3.38 10^6/uL (3.93-5.22); RDW 13.1 % (11.7-14.6); RDW-SD 42.8 fL; WBC 5.68 10^3/uL (4.4-10.8)
[2022-02-25 06:44] LABS: Anion Gap 3.2 mmol/L (3-11); BUN 13 mg/dL (7-18); CO2 30.8 mmol/L (21.0-32.0); CREATININE 0.7 mg/dL (0.55-1.02); Calcium 7.9 mg/dL (8.5-10.1); Chloride 104 mmol/L (98-107); Glucose 94 mg/dL (74-106); Potassium 3.8 mmol/L (3.5-5.1); Sodium 138 mmol/L (136-145)
[2022-02-25 07:37] VITALS: BP 153/77; PULSE 63; RESP 19; TEMP 36.3; O2SAT 95
[2022-02-25] MEDS: Multivitamin w/Minerals TAB 1 TAB PO (08:30)
[2022-02-25] MEDS: Ferrous Gluconate 324 MG TAB PO ×2 (08:31→20:25)
[2022-02-25] MEDS: Cholecalciferol (Vitamin D3) 1,000 UNIT TAB 2000 UNITS PO ×2 (08:31→20:25)
[2022-02-25] MEDS: Omeprazole 20 MG CAPCR PO (08:31)
[2022-02-25] MEDS: Furosemide 20 MG TAB 40 MG PO (08:31)
[2022-02-25] MEDS: Sertraline 50 MG TAB PO (08:31)
[2022-02-25] MEDS: Refresh PLUS Eye Drops 0.4ml 1 EACH OP ×2 (08:31→15:50)
[2022-02-25] MEDS: Docusate Sodium 100 MG CAP PO ×2 (08:34→20:26)
[2022-02-25] MEDS: Milk of Magnesia 30 ML CUP PO (11:39)
--- NOTE | 2022-02-25 12:22 | PTTR_ITS ---
PT Notes Visit Reasons: Right Intertrochanteric Hip Fracture Inpatient Physical Therapy Treatment Note [facility] Date: 02/25/2022 PRECAUTIONS: Activity as tolerated, Fall, WBAT R LE SUBJECTIVE: Lucía is pleasant and agreeable to participating in PT. C/o s tiffness in right thigh. OBJECTIVE: BED MOBILITY/TRANSFERS Supine-sit: CGA Sit-stand: SBA Stand-sit: SBA GAIT: Assistive Device: 4WW Weight bearing: WBAT R LE Assistance: SBA Distance: 70' Deviation: Slightly antalgic gait on right. THEREX: Patient was instructed in a LE strengthening and stabilization program, completed in a supine position, to include: ankle pumps, glute sets, quad sets, heels slides, and hip abduction (with assist). She also performed seated LAQ. Pt also stood at bathroom sink for denture/mouth care x approx 8 min. ASSESSMENT: Patient tolerated session well despite c/o right thigh discomfort. I did apply ice to hip post session. Stood unsupported most of mouth care at sink with no LOB. PLAN: Continue with gait and transfer training and LE strengthening, as tolerated, for improved mobility and activity tolerance. TREATMENT CODE/TIME: 25 min. [id number], [id number]
--- NOTE | 2022-02-25 13:24 | W.PM.PROGNOT ---
Date of Service Date of service: 02/25/22 Time of Service: 12:24 Assessment and Plan Assessment and plan (1) Closed intertrochanteric fracture of right hip: Status: Acute Assessment and plan: POD#3 s/p fixation of right intertrochanteric hip fracture. She has been re-ambulated with PT, will need snf at discharge continue bowel management, pain management, pulmonary toilet (routine post operative care) On heparin for DVT prophylaxis (2) Adjustment disorder with mixed anxiety and depressed mood: Status: Acute Assessment and plan: cont. zoloft (3) Closed head injury without loss of consciousness: Status: Resolved Assessment and plan: no headaches (4) Constipation: Status: Acute Assessment and plan: moving her bowels. continue current bowel regimen with daily miralax (5) GERD (gastroesophageal reflux disease): Status: Chronic Assessment and plan: cont. omeprazole (6) Hypothyroidism: Status: Chronic Assessment and plan: cont. levothryoxine 25 mcg daily TSH 2.12 February 09, 2022 (7) Parkinson disease: Status: Chronic Assessment and plan: cont. sinemet (8) DVT prophylaxis: Status: Acute Assessment and plan: continue heparin 5000 units SC Q8hr will likely discharge on asa for dvt prophylaxis per orthopedic recommendations (9) Discharge planning issues: Status: Acute Assessment and plan: will need SNF referral prior to returning home case management following discussed with Dr Felix Subjective Subjective Patient reports: no new complaints, tolerating liquids well, tolerating a regular diet and afebrile Interval history since last seen: working with physical therapy and slow to progress. Exam Const General: cooperative Nutritional Appearance: thin Orientation: alert, awake and oriented x3 HENMT Head: normal to inspection Ears: external ears normal General nose exam: external nose normal Face and sinus: normal facial exam Eyes General: appearance normal, both eyes and all related structures Neck Neck: normal visual inspection Chest Chest: normal inspection of the chest Resp Effort & Inspection: normal respiratory effort and able to speak in complete sentences Auscultation: clear to auscultation bilaterally Cardio Rate: regular rate Rhythm: regular rhythm Pulses: dorsalis pedis present GI Inspection: normal to inspection Palpation: soft and nontender Auscultation: normal bowel sounds Other: Hills catheter in place and patent. Skin General skin exam: no rashes or lesions noted Neuro General: patient alert and patient awake Cognition: normal cognition Speech: speech normal Motor: strength 5/5 throughout (Except to right lower extremity.) and no tremors Extrem Right lower extremity: edema; ROM limited Left lower extremity: no edema Other: Right lower extremity shortened and externally rotated. Right foot pedal edema with intact DP and PT pulses. No tenderness to palpation to right ankle or foot. No pain with range of motion or tenderness to palpation of right elbow. Bilateral upper extremities with full range of motion without pain. Left lower extremity with full range of motion without pain. Psych Appearance: grossly normal Mental Status: mental status grossly normal Speech and Movement: speech and movement normal Affect: normal affect Thought Process: normal Objective Last Vital Signs Temp 36.3 C L 02/25/22 07:37 Pulse 63 02/25/22 07:37 Resp 19 02/25/22 07:37 BP 153/77 H 02/25/22 07:37 Pulse Ox 95 02/25/22 07:37 Laboratory Results - last 24 hr 02/25/22 02/25/22 05:57 05:57 WBC 5.68 RBC 3.38 L Hgb 9.9 L Hct 30.4 L MCV 90 MCH 29.3 MCHC 32.6 RDW 13.1 Plt Count 276 MPV 9.8 Immature Gran % 0.4 Neutrophils % 54.1 Lymphocytes % 30.3 Monocytes % 9.2 Eosinophils % 4.2 Basophils % 1.8 Nucleated RBC % 0.0 Absolute Neutrophils 3.08 Absolute Lymphocytes 1.72 Absolute Monocytes 0.52 Absolute Eosinophils 0.24 Absolute Basophils 0.10 Sodium 138 Potassium 3.8 Chloride 104 Carbon Dioxide 30.8 Anion Gap 3.2 BUN 13 Creatinine 0.7 Estimated GFR/1.73 m2 >= 60.00 Glucose 94 Calcium 7.9 L
[2022-02-25 15:45] VITALS: BP 133/68; PULSE 74; RESP 18; TEMP 36.4; O2SAT 96
[2022-02-25] MEDS: Mirtazapine 15 MG TAB PO (21:32)
[2022-02-25 21:53] VITALS: BP 150/77; PULSE 67; RESP 16; TEMP 36.2; O2SAT 95
[2022-02-26] MEDS: Carbidopa 25/Levodopa 100 TAB PO ×3 (05:26→15:17)
[2022-02-26] MEDS: Levothyroxine 25 MCG TAB PO (05:26)
[2022-02-26] MEDS: Heparin 5,000 UNITS/ML VIAL 5000 UNITS SC ×3 (05:27→21:11)
[2022-02-26 08:18] VITALS: BP 146/77; PULSE 70; RESP 18; TEMP 37.2; O2SAT 97
[2022-02-26] MEDS: Multivitamin w/Minerals TAB 1 TAB PO (08:32)
[2022-02-26] MEDS: Cholecalciferol (Vitamin D3) 1,000 UNIT TAB 2000 UNITS PO ×2 (08:32→20:23)
[2022-02-26] MEDS: Docusate Sodium 100 MG CAP PO ×2 (08:32→20:23)
[2022-02-26] MEDS: Refresh PLUS Eye Drops 0.4ml 1 EACH OP ×2 (08:32→13:27)
[2022-02-26] MEDS: Furosemide 20 MG TAB 40 MG PO (08:32)
[2022-02-26] MEDS: Polyethylene Glycol 3350 17 GM PACKET PO (08:32)
[2022-02-26] MEDS: Omeprazole 20 MG CAPCR PO (08:33)
[2022-02-26] MEDS: Ferrous Gluconate 324 MG TAB PO ×2 (08:33→20:23)
[2022-02-26] MEDS: Acetaminophen 325 MG TAB 650 MG PO ×4 (08:33→20:22)
[2022-02-26] MEDS: Sertraline 50 MG TAB PO (08:33)
--- NOTE | 2022-02-26 11:06 | PT.INTREAT ---
PT Notes Visit Reasons: Right Intertrochanteric Hip Fracture Inpatient Physical Therapy Treatment Note [facility] Date: 02/26/22 SUBJECTIVE: Lucía curious when she will be transferred to rehab. She reports feeling better, stronger to today. OBJECTIVE: [] BED MOBILITY/TRANSFERS Sit-stand:SBA Stand-sit: SBA GAIT Assistive Device: 4WW Weight bearing:WBAT Assist: SBA Distance: 200' Deviation: took a few standing rest breaks due to leg fatigue. THEREX: performed global LE strengthening including sit to stands, LAQ, hip abd, ankle pumps, GS and QS. ASSESSMENT: tolerated session well. Much improvement in pain and strength. PLAN: continue to progress her strength and endurance to improve her mobility. TREATMENT CODE/TIME: 30 min. [id number], [id number]
[2022-02-26 11:39] VITALS: BP 180/79; PULSE 67; RESP 18; TEMP 36.7; O2SAT 96
[2022-02-26 15:15] VITALS: BP 119/70; PULSE 65; RESP 18; TEMP 36.7; O2SAT 97
[2022-02-26] MEDS: traMADol 50 MG TAB PO ×2 (17:56→23:30)
[2022-02-26] MEDS: Normal Saline Flush 10 ML SYR IVP (20:23)
[2022-02-26] MEDS: Mirtazapine 15 MG TAB PO (21:11)
[2022-02-26 21:21] VITALS: BP 111/61; PULSE 68; RESP 15; TEMP 36.4; O2SAT 95
[2022-02-27 05:08] VITALS: BP 160/76; PULSE 65; RESP 15; TEMP 36.6; O2SAT 98
[2022-02-27] MEDS: Levothyroxine 25 MCG TAB PO (06:18)
[2022-02-27] MEDS: Heparin 5,000 UNITS/ML VIAL 5000 UNITS SC ×3 (06:18→22:21)
[2022-02-27] MEDS: Carbidopa 25/Levodopa 100 TAB PO ×3 (06:18→16:55)
[2022-02-27 06:22] LABS: Abs Immature Grans 0.02 10^3/uL (0.0-0.06); Absolute Eosinophil Count 0.36 10^3/uL (0.0-0.7); Absolute Lymphocyte Count 2.26 10^3/uL (1.2-3.4); Absolute Monocyte Count 0.76 10^3/uL (0.1-0.8); Absolute Neutrophil Count 2.75 10^3/uL (1.2-6.7); Basophils % 1.6; Eosinophils % 5.8; HCT 32.2 % (36.0-46.0); HGB 10.6 g/dL (11.2-15.7); Immature Grans % 0.3; Lymphocytes % 36.2; MCH 29.5 pg (27.0-33.0); MCHC 32.9 % (32.0-36.0); MCV 90 fL (80-95); MPV 9.6 fL (8.0-11.0); Monocytes % 12.2; Neutrophils % 43.9; Platelet Count 323 10^3/uL (130-400); RBC 3.59 10^6/uL (3.93-5.22); RDW 12.8 % (11.7-14.6); RDW-SD 42.4 fL; WBC 6.25 10^3/uL (4.4-10.8)
[2022-02-27 06:30] VITALS: BP 163/73; PULSE 70; RESP 15; TEMP 36.8; O2SAT 95
[2022-02-27] MEDS: Cholecalciferol (Vitamin D3) 1,000 UNIT TAB 2000 UNITS PO ×2 (08:19→21:07)
[2022-02-27] MEDS: Normal Saline Flush 10 ML SYR IVP (08:19)
[2022-02-27] MEDS: Omeprazole 20 MG CAPCR PO (08:19)
[2022-02-27] MEDS: Acetaminophen 325 MG TAB 650 MG PO ×4 (08:19→21:06)
[2022-02-27] MEDS: Sertraline 50 MG TAB PO (08:19)
[2022-02-27] MEDS: Multivitamin w/Minerals TAB 1 TAB PO (08:19)
[2022-02-27] MEDS: Refresh PLUS Eye Drops 0.4ml 1 EACH OP ×2 (08:19→13:43)
[2022-02-27] MEDS: Ferrous Gluconate 324 MG TAB PO ×2 (08:19→21:07)
[2022-02-27] MEDS: Docusate Sodium 100 MG CAP PO ×2 (08:19→21:08)
[2022-02-27] MEDS: Furosemide 20 MG TAB 40 MG PO (08:19)
[2022-02-27] MEDS: Polyethylene Glycol 3350 17 GM PACKET PO (08:20)
[2022-02-27 08:43] VITALS: BP 135/70; PULSE 63; RESP 16; TEMP 35.9; O2SAT 92
--- NOTE | 2022-02-27 10:46 | PDOC.CMPRO ---
- If Service Date Differs Date of service: 02/27/22 Time of Service: 10:46 Care Management Progress Note S/O: Lucía was sitting up in her chair when CM met with her. She stated that she is not having a great day today, but is working well with PT. CM discussed the referrals that were sent for her to go to short term rehab including the [facility] [place], the [facility], [place], [facility] and [facility]. She stated that her first choice is the [facility], as it is the closest to her family. CM called admissions at the [facility], who reported that they are reviewing her insurance, and may be able to accept her for admission for tomorrow if they are able to obtain a PA. CM will continue to follow. A: Christiana is a 77 year old female admitted to [facility] on 02/21/22 with R hip fracture. P: Lucía will likely be discharged home with new home health services. She will follow up with her PCP and plan of care and transport with family. CM will continue to support Lucía and assess for discharge concerns.
--- NOTE | 2022-02-27 10:46 | PT.INTREAT ---
Date of service: 02/27/22 Time of Service: 10:15 PT Notes Visit Reasons: Right Intertrochanteric Hip Fracture Inpatient Physical Therapy Treatment Note [facility] Date: 02/27/2022 PRECAUTIONS: Activity as tolerated, Fall, WBAT R LE SUBJECTIVE: Lucía is pleasant and agreeable to participating in PT. She reports feeling dizzy this morning. She reports that she did not sleep well last night. She states that the plan is to discharge to a SNF-level rehab prior to returning to home, but she does not know where or when she is going. OBJECTIVE: PAIN: Patient c/o feeling tender in R hip area in a.m.; she reports shooting pain from R hip to mid-rothman with weight bearing. BED MOBILITY/TRANSFERS Supine-sit: I Sit-stand: S Stand-sit: S GAIT: Assistive Device: 4WW Weight bearing: WBAT R LE Assistance: SBA Distance: 150' in both a.m. and p.m. Deviation: Antalgic gait, c/o R hip discomfort THEREX: Patient was instructed in a LE strengthening and stabilization program, completed in a seated position, to include: ankle pumps, glute sets, hip flexion, LAQ, and hip abduction. ASSESSMENT: Patient tolerated session with c/o R hip discomfort. She demonstrates antalgic gait, although improved pacing with use of 4WW vs FWW and activity tolerance. PLAN: Continue with gait and transfer training and LE strengthening, as tolerated, for improved mobility and activity tolerance. TREATMENT CODE/TIME: Session 1: 25 minutes; [id number], [id number] (10:15) Session 2: 23 minutes; [id number], [id number] (15:24)
[2022-02-27] MEDS: Ondansetron O.D.T. 4 MG TABEF PO (11:19)
[2022-02-27 17:01] VITALS: BP 134/65; PULSE 63; RESP 16; TEMP 36.1; O2SAT 97
--- NOTE | 2022-02-27 18:19 | W.PM.PROGNOT ---
Date of Service Date of service: 02/27/22 Time of Service: 17:20 Assessment and Plan Assessment and plan (1) Closed intertrochanteric fracture of right hip: Status: Acute Assessment and plan: POD#5 s/p fixation of right intertrochanteric hip fracture. She has been re-ambulated with PT, will need snf at discharge continue bowel management, pain management, pulmonary toilet (routine post operative care) On heparin for DVT prophylaxis (2) Adjustment disorder with mixed anxiety and depressed mood: Status: Acute Assessment and plan: cont. zoloft (3) Closed head injury without loss of consciousness: Status: Resolved Assessment and plan: no headaches (4) Constipation: Status: Acute Assessment and plan: moving her bowels. continue current bowel regimen with daily miralax (5) GERD (gastroesophageal reflux disease): Status: Chronic Assessment and plan: cont. omeprazole (6) Hypothyroidism: Status: Chronic Assessment and plan: cont. levothryoxine 25 mcg daily TSH 2.12 February 09, 2022 (7) Parkinson disease: Status: Chronic Assessment and plan: cont. sinemet (8) DVT prophylaxis: Status: Acute Assessment and plan: continue heparin 5000 units SC Q8hr will likely discharge on asa for dvt prophylaxis per orthopedic recommendations (9) Discharge planning issues: Status: Acute Assessment and plan: will need SNF referral prior to returning home case management following discussed with Dr Triana Subjective Subjective Patient reports: no new complaints, feels better, tolerating liquids well, tolerating a regular diet and afebrile; denies shortness of breath Exam Const General: cooperative Nutritional Appearance: thin Orientation: alert, awake and oriented x3 HENMT Head: normal to inspection Ears: external ears normal General nose exam: external nose normal Face and sinus: normal facial exam Eyes General: appearance normal, both eyes and all related structures Neck Neck: normal visual inspection Chest Chest: normal inspection of the chest Resp Effort & Inspection: normal respiratory effort and able to speak in complete sentences Auscultation: clear to auscultation bilaterally Cardio Rate: regular rate Rhythm: regular rhythm Pulses: dorsalis pedis present GI Inspection: normal to inspection Palpation: soft and nontender Auscultation: normal bowel sounds Other: Hills catheter in place and patent. Skin General skin exam: no rashes or lesions noted Neuro General: patient alert and patient awake Cognition: normal cognition Speech: speech normal Motor: strength 5/5 throughout (Except to right lower extremity.) and no tremors Extrem Right lower extremity: edema; ROM limited Psych Appearance: grossly normal Mental Status: mental status grossly normal Speech and Movement: speech and movement normal Affect: normal affect Thought Process: normal Objective Last Vital Signs Temp 36.1 C L 02/27/22 17:01 Pulse 63 02/27/22 17:01 Resp 16 02/27/22 17:01 BP 134/65 02/27/22 17:01 Pulse Ox 97 02/27/22 17:01 Laboratory Results - last 24 hr 02/27/22 06:01 WBC 6.25 RBC 3.59 L Hgb 10.6 L Hct 32.2 L MCV 90 MCH 29.5 MCHC 32.9 RDW 12.8 Plt Count 323 MPV 9.6 Immature Gran % 0.3 Neutrophils % 43.9 Lymphocytes % 36.2 Monocytes % 12.2 Eosinophils % 5.8 Basophils % 1.6 Nucleated RBC % 0.0 Absolute Neutrophils 2.75 Absolute Lymphocytes 2.26 Absolute Monocytes 0.76 Absolute Eosinophils 0.36 Absolute Basophils 0.10
--- NOTE | 2022-02-27 19:35 | W.PM.PROGNOT ---
Date of Service Date of service: 02/27/22 Time of Service: 12:40 Assessment and Plan Assessment and plan (1) Closed intertrochanteric fracture of right hip: Status: Acute Assessment and plan: Lucía is s/p IMN of the right hip fracture. She seems to be doing well. I think some continued rehab is excellent to help develop her independence with mobility. I encouraged her to continue with PT. Continue DVT prophylaxis. WBAT with assistive deices. D/C planning. Subjective Subjective Interval history since last seen: Lucía reports good pain control and inceased PT tolerance. She has been able to get up with PT and with nursing. She is looking forward to going to rehab. No acute concerns. Exam Narrative Exam Narrative: Sitting up in the bed. AAOx3. NAD. RLE Dressing c/d/i. No significnat pain with IR/ER of the hip. +EHL/FHL/ADF/APF SILT SP/DP/Tib Objective Last Vital Signs Temp 36.1 C L 02/27/22 17:01 Pulse 63 02/27/22 17:01 Resp 16 02/27/22 17:01 BP 134/65 02/27/22 17:01 Pulse Ox 97 02/27/22 17:01 Laboratory Results - last 24 hr 02/27/22 06:01 WBC 6.25 RBC 3.59 L Hgb 10.6 L Hct 32.2 L MCV 90 MCH 29.5 MCHC 32.9 RDW 12.8 Plt Count 323 MPV 9.6 Immature Gran % 0.3 Neutrophils % 43.9 Lymphocytes % 36.2 Monocytes % 12.2 Eosinophils % 5.8 Basophils % 1.6 Nucleated RBC % 0.0 Absolute Neutrophils 2.75 Absolute Lymphocytes 2.26 Absolute Monocytes 0.76 Absolute Eosinophils 0.36 Absolute Basophils 0.10
[2022-02-27] MEDS: Mirtazapine 15 MG TAB PO (22:21)
[2022-02-27 22:33] VITALS: BP 144/74; PULSE 64; RESP 15; TEMP 36.8; O2SAT 96
[2022-02-28] MEDS: traMADol 50 MG TAB PO ×2 (03:13→21:31)
[2022-02-28] MEDS: Heparin 5,000 UNITS/ML VIAL 5000 UNITS SC ×3 (05:50→21:31)
[2022-02-28] MEDS: Levothyroxine 25 MCG TAB PO (05:50)
[2022-02-28] MEDS: Carbidopa 25/Levodopa 100 TAB PO ×3 (05:51→15:37)
[2022-02-28 07:23] VITALS: BP 125/69; PULSE 71; RESP 16; TEMP 36.1; O2SAT 94
[2022-02-28] MEDS: Polyethylene Glycol 3350 17 GM PACKET PO (08:38)
[2022-02-28] MEDS: Acetaminophen 325 MG TAB 650 MG PO ×4 (08:39→20:33)
[2022-02-28] MEDS: Ferrous Gluconate 324 MG TAB PO ×2 (08:39→20:33)
[2022-02-28] MEDS: Omeprazole 20 MG CAPCR PO (08:39)
[2022-02-28] MEDS: Refresh PLUS Eye Drops 0.4ml 1 EACH OP ×2 (08:39→14:06)
[2022-02-28] MEDS: Multivitamin w/Minerals TAB 1 TAB PO (08:39)
[2022-02-28] MEDS: Docusate Sodium 100 MG CAP PO ×2 (08:39→20:33)
[2022-02-28] MEDS: Furosemide 20 MG TAB 40 MG PO (08:39)
[2022-02-28] MEDS: Cholecalciferol (Vitamin D3) 1,000 UNIT TAB 2000 UNITS PO ×2 (08:39→20:33)
[2022-02-28] MEDS: Sertraline 50 MG TAB PO (08:39)
--- NOTE | 2022-02-28 08:48 | PT.INTREAT ---
Date of service: 02/28/22 Time of Service: 07:52 PT Notes Visit Reasons: Right Intertrochanteric Hip Fracture Inpatient Physical Therapy Treatment Note [facility] Date: 02/28/2022 PRECAUTIONS: Activity as tolerated, Fall, WBAT R LE SUBJECTIVE: Lucía is pleasant and agreeable to participating in PT. She states that she is having difficulty with functional mobility and tasks due to pain in her L pectoral area today. OBJECTIVE: PAIN: Patient c/o nerve pain from R hip to mid-rothman with weight bearing and ther ex today, as well as left-sided muscular pain in pectoral area with deep breathing and use of 4WW. All pain-related complaints relayed to clinical coordinator, Qiana and hospitalist staff. BED MOBILITY/TRANSFERS Supine-sit: I Sit-supine: I Sit-stand: SBA Stand-sit: S GAIT: Assistive Device: 4WW in a.m.; FWW in p.m. Weight bearing: WBAT R LE Assistance: CGA-SBA in a.m.; SBA in p.m. Distance: 75' in a.m.; 250' in p.m. Deviation: Antalgic gait, c/o R LE pain and pain in L pectoral area, cueing for gait mechanics including heel strike and foot flat bilaterally; use of FWW versus 4WW reduced L pectoral pain THEREX: Patient was instructed in a LE strengthening and stabilization program, completed in a seated position, to include: ankle pumps, heel raises, glute sets, hip flexion, LAQ, and hip abduction. R hip pain with exercise indicated. TOILETING: Patient toileted with supervision for transfers. ASSESSMENT: Patient tolerated session with c/o R LE pain with gait training and ther ex. She demonstrates significantly antalgic gait requiring cueing for gait mechanics. She appears limited by pain in R LE and L pectoral area. Patient was agreeable to utilizing FWW with gait training instead of 4WW, which reportedly reduced pain in pectoral area in afternoon. PLAN: Continue with gait and transfer training and LE strengthening, as tolerated, for improved mobility and activity tolerance. TREATMENT CODE/TIME: Session 1: 16 minutes; [id number] (07:53) Session 2: 31 minutes; [id number] x2 (14:44)
[2022-02-28 11:58] VITALS: BP 146/80; PULSE 69; RESP 16; TEMP 36.7; O2SAT 97
--- NOTE | 2022-02-28 14:03 | W.PM.PROGNOT ---
Date of Service Date of service: 02/28/22 Time of Service: 13:03 Assessment and Plan Assessment and plan (1) Closed intertrochanteric fracture of right hip: Status: Acute Assessment and plan: POD#6 s/p fixation of right intertrochanteric hip fracture. She has been re-ambulated with PT, will need snf at discharge continue bowel management, pain management, pulmonary toilet (routine post operative care) On heparin for DVT prophylaxis (2) Adjustment disorder with mixed anxiety and depressed mood: Status: Acute Assessment and plan: cont. zoloft (3) Closed head injury without loss of consciousness: Status: Resolved Assessment and plan: no headaches (4) Constipation: Status: Acute Assessment and plan: moving her bowels. continue current bowel regimen with daily miralax (5) GERD (gastroesophageal reflux disease): Status: Chronic Assessment and plan: cont. omeprazole (6) Hypothyroidism: Status: Chronic Assessment and plan: cont. levothryoxine 25 mcg daily TSH 2.12 February 09, 2022 (7) Parkinson disease: Status: Chronic Assessment and plan: cont. sinemet (8) DVT prophylaxis: Status: Acute Assessment and plan: continue heparin 5000 units SC Q8hr will likely discharge on asa for dvt prophylaxis per orthopedic recommendations (9) Discharge planning issues: Status: Acute Assessment and plan: will need SNF referral prior to returning home case management following, referrals have been placed. awaiting bed acceptance. discussed with Dr Triana Subjective Subjective Patient reports: still having pain Interval history since last seen: patient c/o right hip and lower extremity pain, but saying hip pain improved. She has is having discomfort in left axilla, reproducible on palpation and with movement, which she is attributing to increased activity yesterday. she is eating and drinking well. reports voiding without difficulty and moving her bowels. She denies chest pain, shortness of breath, cough or nausea. Exam Const General: cooperative Nutritional Appearance: thin Orientation: alert, awake and oriented x3 HENMT Head: normal to inspection Ears: external ears normal General nose exam: external nose normal Face and sinus: normal facial exam Eyes General: appearance normal, both eyes and all related structures Neck Neck: normal visual inspection Chest Chest: normal inspection of the chest Resp Effort & Inspection: normal respiratory effort and able to speak in complete sentences Auscultation: clear to auscultation bilaterally Cardio Rate: regular rate Rhythm: regular rhythm Pulses: dorsalis pedis present GI Inspection: normal to inspection Palpation: soft and nontender Auscultation: normal bowel sounds Skin Lesions: other (surgical dressings intact, no surrounding erythema) Rashes: no rashes Neuro General: patient alert, patient awake and patient oriented x3 Cognition: normal cognition Speech: speech normal Motor: no tremors Extrem Right lower extremity: edema; ROM limited Psych Appearance: grossly normal Mental Status: mental status grossly normal Speech and Movement: speech and movement normal Affect: normal affect Thought Process: normal Objective Last Vital Signs Temp 36.7 C 02/28/22 11:58 Pulse 69 02/28/22 11:58 Resp 16 02/28/22 11:58 BP 146/80 H 02/28/22 11:58 Pulse Ox 97 02/28/22 11:58
[2022-02-28 15:18] VITALS: BP 133/74; PULSE 73; RESP 17; TEMP 36.6; O2SAT 97
--- NOTE | 2022-02-28 17:07 | CHAPLAIN ---
Lucía was resting in bed when I visited. The nurse was applying a heating pad to Lucía's shoulder to help with the pain. Lucía told me she moved [place] because her son, daughter in law, grandkids live nearby and run an apple [employer]. Lucía said she was raised in the [employer], but later attended [employer] because her was [employer] and their 6 children were attending the local [employer]. None of them attending congregation any more, so she asked if there were any local [employer]. I gave her information about the [employer] [facility] [place] and also about the [facility] because she believed that one was closest to their home and her son could take here there. She said she has met very nice people in [place], so far and she likes being close to some of her family. She has six childen. She had one when she was , and her had one, then they had two together and then they adopted two more. It was difficult for Lucía to make eye contact because her eyes are bothering her. She said she has to squint and hopes to return to [facility] to see whay is wrong with her eyes.
--- NOTE | 2022-02-28 17:21 | PDOC.CMPRO ---
- If Service Date Differs Date of service: 02/28/22 Time of Service: 17:21 Care Management Progress Note S/O: Lucía was sitting up in bed when CM met with her. CM reviewed the plan for her to go to short term rehab, likely at the [facility] in [place]. She has been tentatively offered a bed there for rehab, pending insurance PA. CM also updated her daughter in law, Nathalie, who is in agreement with this plan. CM will continue to follow. A: Christiana is a 77 year old female admitted to [facility] on 02/21/22 with R hip fracture. P: Lucía will likely be discharged home with new home health services. She will follow up with her PCP and plan of care and transport with family. CM will continue to support Lucía and assess for discharge concerns.
[2022-02-28] MEDS: Mirtazapine 15 MG TAB PO (21:31)
[2022-02-28 23:02] VITALS: BP 147/75; PULSE 65; RESP 16; TEMP 36.9; O2SAT 96
[2022-03-01] MEDS: Carbidopa 25/Levodopa 100 TAB PO ×3 (05:57→16:15)
[2022-03-01] MEDS: Heparin 5,000 UNITS/ML VIAL 5000 UNITS SC ×3 (05:57→22:12)
[2022-03-01] MEDS: Levothyroxine 25 MCG TAB PO (05:57)
[2022-03-01 06:01] VITALS: BP 164/75; PULSE 71; RESP 12; TEMP 36.3; O2SAT 96
[2022-03-01] MEDS: traMADol 50 MG TAB PO (06:07)
[2022-03-01 06:20] LABS: HCT 35.3 % (36.0-46.0); HGB 11.3 g/dL (11.2-15.7); MCV 91 fL (80-95); MPV 9.3 fL (8.0-11.0); Platelet Count 384 10^3/uL (130-400); RBC 3.89 10^6/uL (3.93-5.22); RDW 13.2 % (11.7-14.6); RDW-SD 43.6 fL; WBC 7.59 10^3/uL (4.4-10.8)
[2022-03-01 07:38] VITALS: BP 131/74; PULSE 65; RESP 16; TEMP 36.6; O2SAT 94
[2022-03-01] MEDS: Refresh PLUS Eye Drops 0.4ml 1 EACH OP ×3 (07:46→22:12)
[2022-03-01] MEDS: Polyethylene Glycol 3350 17 GM PACKET PO (07:46)
[2022-03-01] MEDS: Cholecalciferol (Vitamin D3) 1,000 UNIT TAB 2000 UNITS PO ×2 (07:47→22:12)
[2022-03-01] MEDS: Ferrous Gluconate 324 MG TAB PO ×2 (07:47→22:11)
[2022-03-01] MEDS: Multivitamin w/Minerals TAB 1 TAB PO (07:47)
[2022-03-01] MEDS: Sertraline 50 MG TAB PO (07:47)
[2022-03-01] MEDS: Docusate Sodium 100 MG CAP PO ×2 (07:47→22:11)
[2022-03-01] MEDS: Acetaminophen 325 MG TAB 650 MG PO ×4 (07:47→22:11)
[2022-03-01] MEDS: Furosemide 20 MG TAB 40 MG PO (07:47)
[2022-03-01] MEDS: Omeprazole 20 MG CAPCR PO (09:26)
--- NOTE | 2022-03-01 14:15 | PT.INTREAT ---
PT Notes Visit Reasons: Right Intertrochanteric Hip Fracture Direct Treatment Time: [68] Total Treatment Time: [68] Treatment Units Time Duration Manual Therapy (75559) [] [] Therapeutic Procedures (78676) [2] [30] Neurological Re-Education (12826) [] [] Ultrasound (03972) [] [] Gait Training (38549) [2] [38] Therapeutic Activity (07691) [] [] Self Care Training (24086) [] [] Low IE (45124) [] [] Mod IE (03278) [] [] High IE (76068) [] [] SUBJECTIVE: pt rports that she is having L shoulder pain 05/17, tenderness on her incision sit at her R hip, feeling nauseous and generalized body malaise. pt agreed to participating with therapy after spending some time conversing with FINE ARTS INSTRUCTOR. OBJECTIVE:? BED MOBILITY/TRANSFERS? Supine-sit: CGA morning, independent afternoon Sit-supine: I Sit-stand: CGA morning, independent afternoon? Stand-sit: SBA GAIT: Assistive Device: 4WW at both session Weight bearing: WBAT R LE Assistance: CGA-SBA in a.m.; SBA in p.m. Distance: 20', 30', 40' in a.m.; 300' in p.m. Deviation: Antalgic gait, c/o R LE pain and pain in L pectoral area, cueing for gait mechanics including heel strike and foot flat bilaterally ? THEREX: Patient was instructed in a LE strengthening and stabilization program, completed in a seated position, to include: ankle pumps, heel raises, glute sets, hip flexion, LAQ, and hip abduction.? R hip pain with exercise indicated. TOILETING: Patient toileted with supervision for transfers. ASSESSMENT:? pt tolerates activity better in the afternoon vs. morning, pt much more alert and coherent in the morning compared to the afternoon. pt also demonstrated increased business process manager supercilii crease and ptosis on the L eye when approached for therapy this afternoon. pt condition brought to primary PT's attention. pt situated back in bed after gait training for safety and fall prevention. PLAN: Continue with gait and transfer training and LE strengthening, as tolerated, for improved mobility and activity tolerance. TREATMENT CODE/TIME: Session 1: 30 minutes; 76747 (11:30am) Session 2: 38 minutes; 63721 x2 (1:00pm)
[2022-03-01 14:57] VITALS: BP 119/70; PULSE 69; RESP 18; TEMP 35.7; O2SAT 98
--- NOTE | 2022-03-01 15:06 | W.PM.PROGNOT ---
Date of Service Date of service: 03/01/22 Time of Service: 14:06 Assessment and Plan Assessment and plan (1) Closed intertrochanteric fracture of right hip: Status: Acute Assessment and plan: POD#7 s/p fixation of right intertrochanteric hip fracture. She has been re-ambulated with PT, will need snf at discharge continue bowel management, pain management, pulmonary toilet (routine post operative care) On heparin for DVT prophylaxis (2) Adjustment disorder with mixed anxiety and depressed mood: Status: Acute Assessment and plan: cont. zoloft (3) Constipation: Status: Acute Assessment and plan: moving her bowels. continue current bowel regimen with daily miralax (4) GERD (gastroesophageal reflux disease): Status: Chronic Assessment and plan: cont. omeprazole (5) Hypothyroidism: Status: Chronic Assessment and plan: cont. levothryoxine 25 mcg daily TSH 2.12 February 09, 2022 (6) Parkinson disease: Status: Chronic Assessment and plan: cont. sinemet (7) Closed head injury without loss of consciousness: Status: Resolved Assessment and plan: no headaches (8) DVT prophylaxis: Status: Acute Assessment and plan: continue heparin 5000 units SC Q8hr will likely discharge on asa for dvt prophylaxis per orthopedic recommendations (9) Discharge planning issues: Status: Acute Assessment and plan: will need SNF referral prior to returning home case management following, referrals have been placed. awaiting bed acceptance. discussed with Dr Triana Subjective Subjective Patient reports: no new complaints Exam Const General: cooperative Nutritional Appearance: thin Orientation: alert, awake and oriented x3 HENMT Head: normal to inspection Ears: external ears normal General nose exam: external nose normal Face and sinus: normal facial exam Eyes General: appearance normal, both eyes and all related structures Neck Neck: normal visual inspection Chest Chest: normal inspection of the chest Resp Effort & Inspection: normal respiratory effort and able to speak in complete sentences Auscultation: clear to auscultation bilaterally Cardio Rate: regular rate Rhythm: regular rhythm Pulses: dorsalis pedis present GI Inspection: normal to inspection Palpation: soft and nontender Auscultation: normal bowel sounds Skin Lesions: other (surgical dressings intact, no surrounding erythema) Rashes: no rashes Neuro General: patient alert, patient awake and patient oriented x3 Cognition: normal cognition Speech: speech normal Motor: no tremors Extrem Right lower extremity: edema; ROM limited Psych Appearance: grossly normal Mental Status: mental status grossly normal Speech and Movement: speech and movement normal Affect: normal affect Thought Process: normal Objective Last Vital Signs Temp 35.7 C L 03/01/22 14:57 Pulse 69 03/01/22 14:57 Resp 18 03/01/22 14:57 BP 119/70 03/01/22 14:57 Pulse Ox 98 03/01/22 14:57 Laboratory Results - last 24 hr 03/01/22 06:03 WBC 7.59 RBC 3.89 L Hgb 11.3 Hct 35.3 L MCV 91 MCH 29.0 MCHC 32.0 D RDW 13.2 Plt Count 384 MPV 9.3 Reviewed Pertinent PMH: Yes
--- NOTE | 2022-03-01 16:35 | PDOC.CMPRO ---
- If Service Date Differs Date of service: 03/01/22 Time of Service: 16:35 Care Management Progress Note S/O: Lucía was sitting up in bed when CM met with her. She stated that she is doing well today, and feels that she is doing well working with PT. CM discussed her discharge plan, informing her that the [facility] declined her today d/t her insurance not being accepted by the MD at the facility. CM followed up on the other referrals that had been sent today. The [facility] is closed to admissions, [facility] is not responding. [facility], [facility] and [facility] are all reviewing. CM left a voicemail with Nathalie and Kareem to provide them with this update as well. CM will continue to follow. A: Christiana is a 77 year old female admitted to [facility] on 02/21/22 with R hip fracture. P: Lucía will likely be discharged to a SNF, when a bed becomes available. Referrals were sent to the [facility] (first choice, declined d/t insurance), the [facility] (closed for admissions), [facility] (reviewing), [facility] (reviewing), [facility] (not responding), and [facility] (reviewing). She will follow up with her PCP and plan of care and transport with family. CM will continue to support Lucía and assess for discharge concerns.
[2022-03-01] MEDS: Mirtazapine 15 MG TAB PO (22:11)
[2022-03-01 23:30] VITALS: BP 120/68; PULSE 70; RESP 18; TEMP 36.1; O2SAT 98
[2022-03-02] MEDS: Carbidopa 25/Levodopa 100 TAB PO ×3 (05:08→16:25)
[2022-03-02] MEDS: Levothyroxine 25 MCG TAB PO (05:08)
[2022-03-02] MEDS: traMADol 50 MG TAB PO (05:08)
[2022-03-02] MEDS: Heparin 5,000 UNITS/ML VIAL 5000 UNITS SC ×3 (05:09→21:36)
[2022-03-02] MEDS: Refresh PLUS Eye Drops 0.4ml 1 EACH OP ×2 (07:34→21:35)
[2022-03-02] MEDS: Multivitamin w/Minerals TAB 1 TAB PO (07:35)
[2022-03-02] MEDS: Sertraline 50 MG TAB PO (07:35)
[2022-03-02] MEDS: Polyethylene Glycol 3350 17 GM PACKET PO (07:35)
[2022-03-02] MEDS: Ferrous Gluconate 324 MG TAB PO ×2 (07:35→21:31)
[2022-03-02] MEDS: Cholecalciferol (Vitamin D3) 1,000 UNIT TAB 2000 UNITS PO ×2 (07:35→21:35)
[2022-03-02] MEDS: Acetaminophen 325 MG TAB 650 MG PO ×4 (07:35→21:35)
[2022-03-02] MEDS: Omeprazole 20 MG CAPCR PO (07:35)
[2022-03-02] MEDS: Docusate Sodium 100 MG CAP PO ×2 (07:36→21:31)
[2022-03-02] MEDS: Furosemide 20 MG TAB 40 MG PO (07:36)
[2022-03-02 07:41] VITALS: BP 120/67; PULSE 4; RESP 14; TEMP 36.5; O2SAT 97
--- NOTE | 2022-03-02 11:28 | PT.INPN ---
Date of service: 03/02/22 Time of Service: 11:28 PT Notes Visit Reasons: Right Intertrochanteric Hip Fracture Physical Therapy Inpatient Progress Note Date: 03/02/2022 Dates of Service: 02/23/2022 through 03/02/2022 Referring Doctor: Stephan Arambula MD PT Orders: PT CONSULT: S/P date of surgery.? S/P IMN right hip fracture Precautions: Fall. Standard.? WBAT on right LE with AD.? Patient Profile/Admitting Diagnosis:? Christiana is a 77-year-old female with Parkinson's disease who sustained an intetrochanteric fracture of the right from a mechanical fall and is status post right IMN fixation on postoperative day 7. Subjective: Does not feel good today. Reports being nauseated, tummy feeling funny. Anxious about her upcoming transition into a fpc facility. Worried about getting out of bed. L shoulder still hurting but not as much. Stressed out about her being a burden and a source worry for her kids and verbalized that she hopes to maybe not wake up one day like how her passed. Relayed negative feelings to ROSE Chowdhury right after session. Objective: General Observation: Supine in bed.? IV in R UE. Mental Status: Alert and oriented as to person and place. Appeared preoccupied and anxious about overall care trajectory is going to be. Pain: 2-3/10 in the R hip; 3-4/10 in the L shoulder Vital Signs: WNL as closley monitored by nursing ROM: Able to slide heel to about 110 degrees hip flexion and 90 degrees of knee flexion on the L side, 90 degrees at the hip and about 60 degrees at the knee on the R side. Dorsiflexion to neutral only on B sides. Strength: Right Lower Extremity: Hip flexors 3-/5. Knee flexors 3-/5. Knee extensors 3-/5. Ankle dorsiflexors 3-/5. Ankle plantarflexors 3-/5. Left Lower Extremity: Hip flexors 3-/5. Knee flexors 3-/5. Knee extensors 3-/5. Ankle dorsiflexors 3-/5. Ankle plantarflexors 3-/5. Bed Mobility/Transfers: Supine to sit with stand by assist Sit to stand with stand by assist Stand to sit with contact-guard assist Bed to bedside commode with contact guard assist Bedside commode to chair with contact guard assist Gait: Instructed patient with level surface ambulation of 30 feet requiring minimal assist. Debra decreased. Step height decreased. Gait antalgic. Chronic Parkinsonian gait. Balance: Static Sitting: Good Dynamic Sitting: Fair Static Standing: Fair Dynamic Standing: Fair Special Tests: Mobility Limitations Standardized Measure [facility] AM-PAC 6 clicks Basic Mobility Inpatient Short Form: Raw Score: 18 CMS Score: 47% deficit? ? ? Informed Consent/Education:? Patient was instructed in purpose of PT consult and plan of care. Agreeable to continue with established PT POC to achieve personal goals. ASSESSMENT: Negative thoughts about trajectory of care and the patient's perceived increased burden of care on her children have been affecting her level of participation. Level of cognition fluctuating and confusion interfering with her overall performance in therapy. Patient was advised that short-term rehab placement where she needs to progress to a more independent level with transfers and ambulation prior to getting discharged to home to reduce her fall risk will be the way to go. Resistant to downgrading to the use of front-wheeled walker as the four-wheeled walker may be too quick for her current mobility level and, along with pre-exiting parkinson's disease, may predispose her more to falls. Patient continues to present with clinical signs and symptoms consistent with current/admitting diagnoses that have resulted to mobility limitations, gait instability, generalized weakness, and overall ADL decline as demonstrated by the following impairment level findings: 1.? Decreased strength to B LE major muscle groups 2.? Impaired sitting/standing balance 3.? Impaired activity tolerance 4.? Limitation of joint range of motion in right hip 5.? Pain in right hip 6.? Chronic lymphedema in right LE Impairments are contributing to the following functional limitations: 1.? Decline in bed mobility skills 2.? Decline in transfer skills 3.? Difficulty with ambulation without assistive device and physical. 4.? Increased completion time for mobility ADL performance 5.? Increased risk for falls 6.? Difficulty with managing steps alone safely Patient is assessed as a 22891 moderate complexity based on the following: History: 77 [id number]? with past medical history as indicated above Examination: Demonstrable impairment in strength, balance, and mobility level with underlying impairments and functional limitations as exhibited above as well as deficit score of 71% utilizing the [facility] Mobility Inpatient Short Form Presentation: Evolving Decision Makin moderate complexity Goals: Goals X1 week 1. Supine-Sit independent NOT MET, CONTINUE 2. Sit-Supine independent NOT MET, CONTINUE 3. Sit-Stand independent NOT MET, CONTINUE 4. Stand-Sit independent with FWW NOT MET, CONTINUE 5. Bed-Chair independent with FWW NOT MET, CONTINUE 6. Chair-Bed independent with FWW NOT MET, CONTINUE 7.? Supervision with gait on level surface with use of FWW for at least 300 feet without report of pain nor dyspnea NOT MET, CONTINUE 9. Good static and dynamic standing balance/tolerance NOT MET, CONTINUE Plan of Care/Treatment Plan: 1-2x/day, 7 days/week x 1 week. Plan of care has been reviewed with the LUMBER HACKER providing the service under Physical Therapy direction. Continue with Physical Therapy intervention for pain management as needed, strengthening, bed mobility, transfers, gait, stairs, balance training, and use of assistive device. DISCHARGE RECOMMENDATIONS: [] ? Home with no services [] [] ? Home with services [specify] [] ? Home with outpatient PT [] [X] ? SNF for continued rehabilitation.? Patient will benefit from fpc facility placement for continued skilled physical therapy services in order to progress mobility level, strength, and balance in preparation for a safe discharge to home. [] ? Snf Care [] [] ? SNF versus LTC based on ability to participate and progress [] TREATMENT CODE/TIME 47084 x 39minutes beginning at 11:28 AM.? Thank you for the opportunity to participate in the care of this patient. Katelyn Pedro PT, DPT, CLT [facility] [place], [place]
[2022-03-02 11:40] VITALS: BP 158/77; BP 174/75; BP 178/77; PULSE 71; PULSE 75; PULSE 83
--- NOTE | 2022-03-02 14:00 | W.PM.PROGNOT ---
Date of Service Date of service: 03/02/22 Time of Service: 13:00 Assessment and Plan Assessment and plan (1) Closed intertrochanteric fracture of right hip: Status: Acute Assessment and plan: POD#8 s/p fixation of right intertrochanteric hip fracture. She continues to progress with PT, will need snf at discharge continue bowel management, pain management, pulmonary toilet (routine post operative care) On heparin for DVT prophylaxis (2) Adjustment disorder with mixed anxiety and depressed mood: Status: Acute Assessment and plan: cont. zoloft (3) Constipation: Status: Acute Assessment and plan: moving her bowels. continue current bowel regimen with daily miralax (4) GERD (gastroesophageal reflux disease): Status: Chronic Assessment and plan: cont. omeprazole (5) Hypothyroidism: Status: Chronic Assessment and plan: cont. levothryoxine 25 mcg daily TSH 2.12 February 09, 2022 (6) Parkinson disease: Status: Chronic Assessment and plan: cont. sinemet (7) Closed head injury without loss of consciousness: Status: Resolved Assessment and plan: no headaches (8) DVT prophylaxis: Status: Acute Assessment and plan: continue heparin 5000 units SC Q8hr will likely discharge on asa for dvt prophylaxis per orthopedic recommendations (9) Discharge planning issues: Status: Acute Assessment and plan: will need SNF referral prior to returning home case management following, referrals have been placed. awaiting bed acceptance. discussed with Dr Triana Subjective Subjective Interval history since last seen: Reports having some nausea this morning and believes it was related to eating too quickly. Nausea did resolve on it's own. She ate lunch without any complaints of nausea, and none after. Exam Const General: cooperative Nutritional Appearance: thin Orientation: alert, awake and oriented x3 HENMT Head: normal to inspection Ears: external ears normal General nose exam: external nose normal Face and sinus: normal facial exam Eyes General: appearance normal, both eyes and all related structures Neck Neck: normal visual inspection Chest Chest: normal inspection of the chest Resp Effort & Inspection: normal respiratory effort and able to speak in complete sentences Auscultation: clear to auscultation bilaterally Cardio Rate: regular rate Rhythm: regular rhythm Pulses: dorsalis pedis present GI Inspection: normal to inspection Palpation: soft and nontender Auscultation: normal bowel sounds Skin Lesions: other (surgical dressings intact, no surrounding erythema) Rashes: no rashes Neuro General: patient alert, patient awake and patient oriented x3 Cognition: normal cognition Speech: speech normal Motor: no tremors Extrem Right lower extremity: edema; ROM limited Psych Appearance: grossly normal Mental Status: mental status grossly normal Speech and Movement: speech and movement normal Affect: normal affect Thought Process: normal Objective Last Vital Signs Temp 36.5 C 03/02/22 07:41 Pulse 71 03/02/22 11:40 Resp 14 03/02/22 07:41 BP 158/77 H 03/02/22 11:40 Pulse Ox 97 03/02/22 07:41 Reviewed Pertinent PMH: Yes
--- NOTE | 2022-03-02 14:23 | PT.INTREAT ---
Date of service: 03/02/22 Time of Service: 13:47 PT Notes Visit Reasons: Right Intertrochanteric Hip Fracture Inpatient Physical Therapy Treatment Note [facility] Date: 03/02/2022 PRECAUTIONS: Activity as tolerated, Fall, WBAT R SUBJECTIVE: Lucía states that she is doing a little better today. She continues to feel anxious regarding the plan to transfer to a SNF-level rehab prior to returning to home. OBJECTIVE: PAIN: Patient c/o pain in R hip that radiates to R knee with gait training BED MOBILITY/TRANSFERS Sit-stand: SBA Stand-sit: SBA GAIT Assistive Device: 4WW Weight bearing: WBAT R Assist: SBA Distance: 150' Deviation: Slow pacing, antalgic gait, c/o pain in R LE THEREX: Patient was instructed in a LE strengthening program, completed in a seated position, to include: ankle pumps, heel raises, LAQ, seated marches and hip abduction. ASSESSMENT: Patient tolerated session with c/o R LE pain with gait training. She continues to demonstrate antalgic gait and slow pacing. She also requires cueing with use of 4WW for safety. PLAN: Continue with gait mechanics and transfer training, as well as global strengthening for improved activity tolerance and mobility, as tolerated. TREATMENT CODE/TIME: 34 minutes; 84446, 19089 (13:47)
[2022-03-02 15:36] VITALS: BP 112/68; PULSE 66; RESP 16; TEMP 36.5; O2SAT 98
--- NOTE | 2022-03-02 16:34 | PDOC.CMPRO ---
- If Service Date Differs Date of service: 03/02/22 Time of Service: 16:34 Care Management Progress Note S/O: Lucía was sitting up in bed when CM met with her. She stated that she is not feeling well today. She acknowledged being very anxious which makes her stomach upset and she feels weak. She continues to do well with PT and is standby assist now with ambulation. When asked if she felt she might be able to go home vs SNF she stated that she did not. She verbalized that it would be too much. A call from [facility] today indicated that they are pursuing a prior authorization with [facility] and that there is still a possibility Lucía can go there. ROSE spoke with someone from [facility] who handles authorizations for P and they stated that her plan does allow for her to seek care outside of the contracted facilities but that she might have a higher copay.CM was unable to ascertain how much the increase would be today. A follow up call will be made tomorrow. At this point the only facility that has a contract with [facility] in her area is [facility]. A: Christiana is a 77 year old female admitted to [facility] on 02/[facility]22 with R hip fracture. P: Lucía will likely be discharged to a SNF, when a bed becomes available. Referrals were sent to [facility] (first choice), the [facility] (closed for admissions), [facility] (reviewing), [facility] (reviewing), [place] (not responding), and [facility] (reviewing). She will follow up with her PCP and plan of care and transport with family. CM will continue to support Lucía and assess for discharge concerns.
[2022-03-02] MEDS: Mirtazapine 15 MG TAB PO (21:30)
[2022-03-02 22:06] VITALS: BP 124/70; PULSE 60; RESP 18; TEMP 36.1; O2SAT 95
[2022-03-03] MEDS: Carbidopa 25/Levodopa 100 TAB PO ×3 (06:12→16:26)
[2022-03-03] MEDS: Levothyroxine 25 MCG TAB PO (06:12)
[2022-03-03] MEDS: Heparin 5,000 UNITS/ML VIAL 5000 UNITS SC ×2 (06:12→14:33)
[2022-03-03 07:35] VITALS: BP 127/66; PULSE 66; RESP 16; TEMP 36.7; O2SAT 94
[2022-03-03] MEDS: Acetaminophen 325 MG TAB 650 MG PO ×3 (07:44→16:26)
[2022-03-03] MEDS: Ferrous Gluconate 324 MG TAB PO (07:44)
[2022-03-03] MEDS: Omeprazole 20 MG CAPCR PO (07:44)
[2022-03-03] MEDS: Docusate Sodium 100 MG CAP PO (07:44)
[2022-03-03] MEDS: Sertraline 50 MG TAB PO (07:44)
[2022-03-03] MEDS: Cholecalciferol (Vitamin D3) 1,000 UNIT TAB 2000 UNITS PO (07:44)
[2022-03-03] MEDS: Polyethylene Glycol 3350 17 GM PACKET PO (07:44)
[2022-03-03] MEDS: Furosemide 20 MG TAB 40 MG PO (07:44)
[2022-03-03] MEDS: Multivitamin w/Minerals TAB 1 TAB PO (07:44)
--- NOTE | 2022-03-03 09:53 | PT.INTREAT ---
PT Notes Visit Reasons: Right Intertrochanteric Hip Fracture Inpatient Physical Therapy Treatment Note [facility] Date: 03/03/22 PRECAUTIONS:Fall SUBJECTIVE: Pt reports that she is tired and she had a tough afternoon. OBJECTIVE: Supine-sit: SBA Sit-supine: SBA Sit-stand: SBA Stand-sit: SBA GAIT Assistive Device: 4WW Weight bearing: WBAT Assist: CGA/SBA Distance: Approx 150ft THEREX: Pt completed standing HR x 15, seated abd x 10, seated marching x 20 alt, seated HE/TR x 10 each, LAQ x 10 B, supine q.s. [id number], supine heel slides x 10. ASSESSMENT: Pt tolerated today's session fairly well. Pt did require vc's for correction of gait mechanics. PLAN: Cont as per Pt POC. TREATMENT CODE/TIME: 9:30-9:50 (20) TA
--- NOTE | 2022-03-03 11:03 | PDOC.CMPRO ---
- If Service Date Differs Date of service: 03/03/22 Time of Service: 11:03 Care Management Progress Note S/O: Lucía A: Christiana is a 77 year old female admitted to [facility] on 02/21/22 with R hip fracture. P: Lucía will likely be discharged to a SNF, when a bed becomes available. Referrals were sent to the [facility] (first choice), the [facility] (closed [facility] admissions[facility] (reviewing), [facility] (not responding), and [facility] (reviewing). She will follow up with her PCP and plan of care and transport with family. CM will continue to support Lucía and assess for discharge concerns.
[2022-03-03] MEDS: LORazepam 0.5 MG TAB PO ×2 (11:20→16:07)
--- NOTE | 2022-03-03 13:52 | PT.INTREAT ---
PT Notes Visit Reasons: Right Intertrochanteric Hip Fracture Direct Treatment Time: [38] Total Treatment Time: [38] Treatment Units Time Duration Therapeutic Procedures (62412) [] [] Gait Training (78277) [3] [38] SUBJECTIVE: pt reports feeling very anxious about the plan for her to go to a SNF level facility. Pt didn't not offer report of pain on her L shoulder as well as no mention about Right Hip pain when pt agreed to participate with therapy. OBJECTIVE:? BED MOBILITY/TRANSFERS? Supine-sit: independent afternoon Sit-supine: Independent Sit-stand: independent afternoon? Stand-sit: independent GAIT: Assistive Device: 4WW Weight bearing: WBAT R LE Assistance: SBA in p.m. Distance: 300' in p.m. Deviation: Antalgic gait, cueing for gait mechanics including heel strike and foot flat bilaterally ? Stair negotiation training: SBA 4steps 6, 6steps 4 x5 sets with turns to be able to go back and forth. ASSESSMENT:?Pt able to complete activity without LOB SOB. pt able to perform transfers and bed mobility going from side of plinth to middle of the bed using black leg lift with mod [place]. PLAN: Continue with gait and transfer training and LE strengthening, as tolerated, for improved mobility and activity tolerance. TREATMENT CODE/TIME: afternoon session 38 minutes; 23368 x3 (1:10pm to 1:48pm)
--- NOTE | 2022-03-03 14:13 | W.PM.DS.N ---
Date of service: 03/03/22 Time of Service: 13:13 DS: Diagnosis Discharge Diagnosis (1) Closed intertrochanteric fracture of right hip: Status: Acute (2) Adjustment disorder with mixed anxiety and depressed mood: Status: Acute (3) Constipation: Status: Acute (4) GERD (gastroesophageal reflux disease): Status: Chronic (5) Hypothyroidism: Status: Chronic (6) Parkinson disease: Status: Chronic (7) Closed head injury without loss of consciousness: Status: Resolved Discharge Plan Disposition Patient Disposition: SKILLED NSG. FAC.(LEVEL 1) Condition: Stable Discharge Details Reason For Visit: Right Intertrochanteric Hip Fracture Admit Date/Time: 02/21/22 19:33 Admit Provider: Jesse Mott Attending Provider: Jesse Mott Primary Care Provider: [facility] Course Hospital Course: Ms Oakes is a 77 yo female with a history of Parkinson's disease, mitral regurgitation, previous left femur fx with intramedullary fixation, lymphedema of the right leg (developed following an appendectomy).? She presented to the ED with c/o right hip pain after falling from a standing height.? She tripped and fell while walking.? Hip x-ray showed a right intertrochanteric hip fx.? Dr Arambula, orthopedic surgeon, was consulted and hip was repaired on February 22, 2022. Post operatively she was re-ambulated and progressing slowly with PT/OT. She was experiencing some left sided pectoral muscular pain and right lower extremity pain that improved with heat and pain management. Recommendations were made for ongoing skilled rehab prior to returning home. referrals have been placed and she is being accepted for a rehab stay. There are no new prescriptions and she should continue previously scheduled medication. discharge discussed with DR Triana Quail Meds and New Rx's Prescriptions: Continued furosemide 20 mg tablet 40 mg PO DAILY levothyroxine 25 mcg capsule 25 mcg PO DAILY cholecalciferol (vitamin D3) 25 mcg (1,000 unit) capsule 2,000 unit PO BID mirtazapine 7.5 mg tablet 15 mg PO QHS nystatin 100,000 unit/gram powder 1 applic topical BID PRN docusate sodium 100 mg capsule 100 mg PO .QOD carbidopa-levodopa [Sinemet] 25-100 mg tablet 2 tab PO TID Qty: 540 3RF Rx Instructions: Take ~6am, 11am, and 4pm entacapone 200 mg tablet 200 mg PO TID Qty: 270 3RF Rx Instructions: administer at the same time as l-dopa/carbidopa dose hydroxyzine HCl 10 mg tablet 10 mg PO QHS PRN (Reason: itching or anxiety or insomnia) Qty: 90 3RF omeprazole 20 mg capsule,delayed release(DR/EC) 20 mg PO DAILY Qty: 90 3RF sertraline 50 mg tablet 50 mg PO DAILY multivit with min-folic acid 80 mcg Tablet,Chewable 1 tab PO DAILY Rx Instructions: take at 5pm dinner time Systane (PF) 0.4-0.3 % dropperette 1 drp ophthalmic (eye) TID Rx Instructions: systane eye drops several times a day per medication list acetaminophen 500 mg tablet 1,000 mg PO Q8H PRN calcium citrate 200 mg (950 mg) Tablet 200 mg Discontinued methylphenidate HCl 5 mg tablet 2.5 mg PO BID MDD 5 Qty: 30 0RF Rx Instructions: Take 2.5mg am. Ok to take second dose at lunch if needed. Discharge Instructions Instructions: Hip Fracture (ED) Additional Instructions: RIGHT HIP DISCHARGE: - Weight bear as tolerated with assistive device (walker) - Continue physical therapy working on strengthening and gaining independence with mopbility. - Dressing as needed but does not require to be covered. Sutures are buried in the skin. - F/U with Dr. Arambula in 4 weeks. Stand Alone Forms: Nursing Discharge Form Referrals: Stephan Arambula MD [ [facility] STAFF PHYSICIAN] - (Please call and make an appointment for 4 weeks) Activity:: Activity as Tolerated Equipment/Supplies:: Walker Diet:: As Tolerated Discharge Orders Discharge Orders: Discharge Order (Routine); Ordered 03/03/22 Ordered By: Vania Hsu DS: Summary Time Spent with Patient providing and/or coordinating discharge services: Greater than 30 minutes Status at Discharge Functional status at discharge: uses cane/walker Overall status at discharge: patient is progressing back to baseline Mental Status: mental status grossly normal Speech and Movement: speech and movement normal Mood: congruent mood Affect: normal affect Exam Const General: cooperative Nutritional Appearance: thin Orientation: alert, awake and oriented x3 HENMT Head: normal to inspection Ears: external ears normal General nose exam: external nose normal Face and sinus: normal facial exam Eyes General: appearance normal, both eyes and all related structures Neck Neck: normal visual inspection Chest Chest: normal inspection of the chest Resp Effort & Inspection: normal respiratory effort and able to speak in complete sentences Auscultation: clear to auscultation bilaterally Cardio Rate: regular rate Rhythm: regular rhythm Pulses: dorsalis pedis present GI Inspection: normal to inspection Palpation: soft and nontender Auscultation: normal bowel sounds Skin Lesions: other (surgical dressings intact, no surrounding erythema) Rashes: no rashes Neuro General: patient alert, patient awake and patient oriented x3 Cognition: normal cognition Speech: speech normal Motor: no tremors Extrem Right lower extremity: edema; ROM limited Psych Appearance: grossly normal Mental Status: mental status grossly normal Speech and Movement: speech and movement normal Mood: congruent mood Affect: normal affect Thought Process: normal DS: Data Vitals/I&O Vitals and I&O: Vital Signs Temperature 36.7 C 03/03/22 07:35 Temperature Source Tympanic 03/03/22 07:35 Pulse 66 03/03/22 07:35 Pulse Rhythm Regular 03/03/22 07:45 Pulse 76 02/21/22 20:40 Respiratory Rate 16 03/03/22 07:35 Respiratory Effort Non-Labored 03/03/22 07:45 Respiratory Depth Normal 03/03/22 07:45 Respiratory Pattern Normal 03/03/22 07:45 Blood Pressure 127/66 03/03/22 07:35 Blood Pressure Mean 63 02/21/22 20:31 Blood Pressure Position Supine 02/21/22 17:16 Pulse Oximetry 94 03/03/22 07:35 Respiratory End-tidal CO2 39 02/22/22 16:23 Oxygen Delivery Method Room Air 03/03/22 07:35 Oxygen Flow Rate 0 03/03/22 07:35 Pain Level 0 03/03/22 07:35 Comment 03/01/22 07:38 Intake & Output 03/02/22 03/03/22 03/03/22 23:59 11:59 23:59 Intake Total 275 / 420 180 / 180 Output Total 775 / 1575 1225 / 1225 Balance -500 / -1155 -1045 / -1045 Intake: Oral 275 / 420 180 / 180 Output: Urine 775 / 1575 1225 / 1225 Other: Urine Color Yellow Straw Yellow Urine Appearance Clear Clear Clear Urine Odor Normal Normal None Comment unable to measure mix with tissue Stool Size Small Stool Characteristics Soft Brown Voiding Methods Bedside Commode Bedside Commode Bedside Commode PFS All Active Problems (Updated 02/25/22 @ 13:37 by Vania Hsu NP) GERD (gastroesophageal reflux disease) (Chronic) Depression (Chronic) Constipation (Acute) Pain (Acute) Closed intertrochanteric fracture of right hip (Acute) s/p IMN fixation (02/22/22) Fall in home (Acute) Vaginal discharge, bloody (Acute) Post-menopausal bleeding (Acute) Tendinitis involving left hip abductors (Acute) Discharge planning issues (Acute) DVT prophylaxis (Acute) Hypothyroidism (Chronic) Overactive bladder (Chronic) Short-term memory loss (Acute) Adjustment disorder with mixed anxiety and depressed mood (Acute) Dysphagia (Acute) RLS (restless legs syndrome) (Acute) Scoliosis (Acute) Parkinson disease (Chronic) Osteoarthritis of right knee (Chronic) Medical History Arthritis Carpal tunnel syndrome Heart murmur Incontinence Intermediate coronary syndrome Knee pain, right Kyphosis Macular hole Mitral valve regurgitation Multinodular thyroid Osteoporosis Palpitations Parkinsons disease Physical deconditioning Seborrheic keratoses Tinea corporis Tinea pedis Surgical History H/O carpal tunnel repair H/O oophorectomy S/P appendectomy S/P eye surgery ambliopia S/P lumbar spine operation Family History Brother Parkinson disease Maternal Uncle Parkinson disease Paternal Cousin Parkinson disease Other Diabetes Stroke Social History Smoking/Tobacco Use Status: Former Tobacco Use Smoking risk assessment performed?: Yes Alcohol Intake: current Alcohol Intake frequency: holidays/special occasions only Drug use: Never Substance use type: does not use Household members: none Seatbelt use: always Do you feel safe at home: Yes Do you feel safe in your relationship?: Yes
[2022-03-03] MEDS: Refresh PLUS Eye Drops 0.4ml 1 EACH OP (14:33)
[2022-03-03 14:45] LABS: Source Nasal/Nares
[2022-03-03 15:20] VITALS: BP 119/54; PULSE 74; RESP 16; TEMP 36.4; O2SAT 99
--- NOTE | 2022-03-03 15:30 | CHAPLAIN ---
Although Christiana seemed more alert today, she was anxious about where she'll go from here. She said she may go to a nursing, one that begins with an M but she didn't recall the name. (It may be the [facility]) She is also worried because she was told she be transferred by care, not ambulance, and she's not sure she can get in and out of car herself. Her nurse, LUIGI Henderson, said she had tried to reassure Christiana that she would be assisted in and out of any vehicle. I gave Christiana a prayer shawl to take with her.
[2022-03-03 15:37] LABS: COVID-19 PCR Negative (Negative)
--- NOTE | 2022-03-03 15:45 | PDOC.CMDIS ---
- If Service Date Differs Date of service: 03/03/22 Time of Service: 15:45 LACE Index Scoring Tool - Questions: Length of Stay (in days): 7 - 13 Acuity (Admit via E.D.?): Yes E.D. Visits: 1 - Answers: Total Score: 9 Risk of Readmission: Low Risk Care Management Discharge Reason for Hospitalization: Closed intertrochanteris fracture of right hip Discharge Plan: Christiana will be discharged to [facility] in [place] today for short term rehab. She will follow up with the facility providers and plan of care and transport with RCT coordinated by CM. Patient/Family Education Needs: Review of discharge instructions, expectations, limitations and Ask Me Three Services Needed at Discharge: Group Home Facility
--- NOTE | 2022-03-03 18:50 | INDS_ITS ---
Date of service: 03/03/22 PT Notes Visit Reasons: Right Intertrochanteric Hip Fracture Physical Therapy Inpatient Discharge Summary Date: 03/03/2022 Dates of service: 02/23/2022 through 03/03/2022 This is a clinical summary of care provided for the duration of dates listed above. No charge was made in the completion of this documentation. Referring Doctor: Stephan Arambula MD PT Orders: PT CONSULT: S/P date of surgery.? S/p IMN right hip fracture Precautions: Fall. Standard.? WBAT on right LE with AD.? Patient Profile/Admitting Diagnosis:? Christiana is a 77-year-old female with Parkinson's disease who sustained a trochanteric fracture of the right from a mechanincal fall and is status post right IMN fixation on postoperative day 1. PMHX: All Active Problems? Closed intertrochanteric fracture of right hip (Acute) Fall in home (Acute) Vaginal discharge, bloody (Acute) Post-menopausal bleeding (Acute) Tendinitis involving left hip abductors (Acute) Discharge planning issues (Acute) DVT prophylaxis (Acute) Hypothyroidism (Chronic) Overactive bladder (Chronic) Short-term memory loss (Acute) Adjustment disorder with mixed anxiety and depressed mood (Acute) Abnormal sensation of buttocks (Acute) Dysphagia (Acute) RLS (restless legs syndrome) (Acute) Scoliosis (Acute) Parkinson disease (Chronic) Osteoarthritis of right knee (Chronic) Medical History? Arthritis Carpal tunnel syndrome Heart murmur Incontinence Intermediate coronary syndrome Knee pain, right Kyphosis Macular hole Mitral valve regurgitation Multinodular thyroid Osteoporosis Palpitations Parkinsons disease Physical deconditioning Seborrheic keratoses Tinea corporis Tinea pedis Surgical History? H/O carpal tunnel repair H/O oophorectomy S/P appendectomy S/P eye surgery ambliopiaS/P lumbar spine operation Social History/Home Situation: Lives alone in a private residence with a flight of steps to enter, bilateral rails.? Son and son's family live across from her house. For the past 3 years Christiana has had a lady come in from 11 AM to 1 PM Mondays through Fridays to help with meals and house chores.? Son and son's family are also involved with patient's care. Chritsiana indicates having had 6-8 falls in the past year.? Now uses her 4WW. Has Scholrly alert device. Used to be a a teacher's aid in kindergarten and pre-K. DME: 4WW,? SPC Subjective: NT. See most recent TUBULAR RIVETER notes. Objective: General Observation: NT. See most recent TUBULAR RIVETER notes. Mental Status: NT. See most recent TUBULAR RIVETER notes. Pain: NT. See most recent TUBULAR RIVETER notes. Vital Signs: NT. See most recent TUBULAR RIVETER notes. ROM: Able to slide heel to about 110 degrees hip flexion and 90 degrees of knee flexion on the L side. 60 degrees at the hip and 45 degrees at the knee on the R side. Dorsiflexion to neutral only on B sides. Strength: Right Lower Extremity: Hip flexors 3-/5. Knee flexors 3-/5. Knee extensors 3-/5. Ankle dorsiflexors 3-/5. Ankle plantarflexors 3-/5. Left Lower Extremity: Hip flexors 3-/5. Knee flexors 3-/5. Knee extensors 3-/5. Ankle dorsiflexors 3-/5. Ankle plantarflexors 3-/5. Bed Mobility/Transfers: Supine to sit standby assist Sit to stand standby assist Stand to sit standby assist Bed to bedside commode standby assist Bedside commode to bedside chair standby assist Gait: Instructed patient with level surface ambulation of 300 feet requiring standby assist. Debra decreased. Step height decreased. Gait antalgic. Chronic Parkinsonian gait. Stairs: Negotiated 6 x 4 inch steps and 4 x 6 inch step while holding onto bilateral rails with step to gait pattern requiring standby assist.. Balance: Static Sitting: Normal Dynamic Sitting: Good Static Standing: Fair Dynamic Standing: Fair Assessment: Patient presents with clinical signs and symptoms consistent with current/admitting diagnoses that have resulted to mobility limitations, gait instability, generalized weakness, and overall ADL decline as demonstrated by the following impairment level findings: 1.? Decreased strength to B LE major muscle groups 2.? Impaired sitting/standing balance 3.? Impaired activity tolerance 4.? Limitation of joint range of motion in right hip 5.? Pain in right hip 6.? Chronic lymphedema in right LE Impairments are contributing to the following functional limitations: 1.? Decline in bed mobility skills 2.? Decline in transfer skills 3.? Difficulty with ambulation without assistive device and physical. 4.? Increased completion time for mobility ADL performance 5.? Increased risk for falls 6.? Difficulty with managing steps alone safely Goals: Goals X1 week 1. Supine-Sit independent MET 2. Sit-Supine independent MET 3. Sit-Stand independent MET 4. Stand-Sit independent with FWW MET 5. Bed-Chair independent with FWW MET 6. Chair-Bed independent with FWW MET 7.? Supervision with gait on level surface with use of FWW for at least 300 feet without report of pain nor dyspnea NOT MET 9. Good static and dynamic standing balance/tolerance NOT MET DISCHARGE RECOMMENDATIONS: [] ? Home with no services [] [] ? Home with services [specify] [] ? Home with outpatient PT [] [X] ? SNF for continued rehabilitation.? Patient will benefit from group home facility placement for continued skilled physical therapy services in order to progress mobility level, strength, and balance in preparation for a safe discharge to home. [] ? System Support Analyst Care [] [] ? SNF versus LTC based on ability to participate and progress [] TREATMENT CODE/TIME: TN Thank you for the opportunity to participate in the care of this patient. Katelyn Pedro PT, DPT, CLT [facility] [place], [place]
== END 2022-03-03 17:29 | disposition skilled nursing facility (03) | DRG 482 ==
LOC: ER 19:53 → MS 20:49
PROVIDERS: Nurse Practitioner Acute Care; Nurse Practitioner Family; Student in an Organized Health Care Education/Training Program; Admitting Provider Family Medicine; Emergency Provider Physician Assistant; PCP Nurse Practitioner Family; Visit Provider Family Medicine
PROC: 0QS606Z Reposition Right Upper Femur with Intramedullary Internal Fixation Device, Open Approach (ICD-10-PCS; CPT 27245; principal; 2022-02-22 15:30)
DX: S72.141A Displaced intertrochanteric fracture of right femur, initial encounter for closed fracture (principal); G20 Parkinson's disease; W18.39XA Other fall on same level, initial encounter; S09.8XXA Other specified injuries of head, initial encounter; K21.9 Gastro-esophageal reflux disease without esophagitis; F32.A Depression, unspecified; K59.00 Constipation, unspecified; N95.0 Postmenopausal bleeding; E03.9 Hypothyroidism, unspecified; N32.81 Overactive bladder; F43.23 Adjustment disorder with mixed anxiety and depressed mood; R13.10 Dysphagia, unspecified; G25.81 Restless legs syndrome; M41.9 Scoliosis, unspecified; M17.11 Unilateral primary osteoarthritis, right knee; I34.0 Nonrheumatic mitral (valve) insufficiency; M81.0 Age-related osteoporosis without current pathological fracture; E04.2 Nontoxic multinodular goiter; Z87.891 Personal history of nicotine dependence; M76.892 Other specified enthesopathies of left lower limb, excluding foot; G89.11 Acute pain due to trauma; M25.551 Pain in right hip
CPT/HCPCS: 27245; 36415; 36416; 51702; 80048; 80053; 82962; 85027; 87635; 93005; 96365; 96375; 97110; 97116; 97162; 97530; 99223; 99285; 70450; 71045; 72125; 73501; 73502; 81003; 85025; 85610; 93010; 99232; 99233; 99239; J0131; J0690; J1100; J1170; J1644; J1885; J2405

== ENCOUNTER 2022-03-23 09:31 | Outpatient (CLI) | payer MEDICARE, SELFPAY ==
--- NOTE | 2022-03-23 09:15 | DI.RAD_ITS ---
Exam(s) XR HIP RT AP LAT ONLY EXAM: XR HIP RT AP LAT ONLY CLINICAL HISTORY: s/p IM fixation R proximal femur. TECHNIQUE: 2D digital imaging was performed. COMPARISON: CR XR HIP LT AP LAT ONLY from 10/14/2020 XA XR HIP RT IN OR from 02/22/2022 FINDINGS: Two views Right hip hardware stable. Fracture line still visible but no displacement. No radiographic evidenc e loosening osteomyelitis. IMPRESSION: DATA REPOSITORY: RADIATION DOSE DELIVERED:
--- NOTE | 2022-03-23 09:30 | DI.RAD_ITS ---
Exam(s) XR KNEE RT 2V AP,LAT EXAM: XR KNEE RT 2V AP,LAT CLINICAL HISTORY: eval R knee and proximal tibia pain. TECHNIQUE: 2D digital imaging was performed. COMPARISON: CR XR KNEE RT 3V AP,LAT,OLINDA from 01/03/2022 FINDINGS: Two views There is no evidence of fracture or obvious joint effusion. Degenerative changes in both medial late ral compartments appear unchanged from 01/03/2022. Chondrocalcinosis in these compartments is also a gain noted. Moderate degenerative change in the patellofemoral compartment is also again noted. IMPRESSION: Previously described moderately severe degenerative changes in the right knee appear radiographically unchanged from 01/03/2022 DATA REPOSITORY: RADIATION DOSE DELIVERED:
== END 2022-03-23 09:32 | disposition home or self-care (01) ==
PROVIDERS: PCP Nurse Practitioner Family; Referring Provider Nurse Practitioner Family; Visit Provider Student in an Organized Health Care Education/Training Program
DX: S72.141A Displaced intertrochanteric fracture of right femur, initial encounter for closed fracture (principal); M11.261 Other chondrocalcinosis, right knee; X58.XXXA Exposure to other specified factors, initial encounter
CPT/HCPCS: 20610; 73502; 73560; J1040

== ENCOUNTER → 2022-04-25 10:43 | Outpatient (BNVA) | payer MEDICARE, SELFPAY | PROVIDERS: PCP Nurse Practitioner Family; Referring Provider Nurse Practitioner Family; Visit Provider Psychiatry & Neurology Neurology | DX: G20 Parkinson's disease (principal); G25.81 Restless legs syndrome; R41.3 Other amnesia; F41.9 Anxiety disorder, unspecified; F32.A Depression, unspecified; N32.81 Overactive bladder | CPT/HCPCS: 99214 ==

== ENCOUNTER → 2022-06-01 09:22 | Outpatient (BNVA) | payer MEDICARE, SELFPAY | PROVIDERS: PCP Nurse Practitioner Family; Referring Provider Nurse Practitioner Family; Visit Provider Physician Assistant Surgical | DX: Z47.89 Encounter for other orthopedic aftercare (principal); S72.141D Displaced intertrochanteric fracture of right femur, subsequent encounter for closed fracture with routine healing; X58.XXXD Exposure to other specified factors, subsequent encounter ==

== ENCOUNTER 2022-06-07 02:54 | Outpatient (CLI) | payer MEDICARE, SELFPAY ==
[2022-06-07 17:29] LABS: Albumin 3.8 g/dL (3.4-5.0); CREATININE 0.7 mg/dL (0.55-1.02); Calcium 8.8 mg/dL (8.5-10.1); Estimated GFR 89.02 (mL/min/1.73m2); TSH 2.11 uIU/mL (0.36-3.74)
[2022-06-08 04:48] LABS: Vitamin D 25 Total 64.3 ng/mL (30-100)
[2022-06-08 20:33] LABS: Parathyroid Hormone,Intact 40 pg/mL (19-88)
== END 2022-06-07 02:55 | disposition home or self-care (01) ==
LOC: LBO 02:54
PROVIDERS: PCP Nurse Practitioner Family; Visit Provider Student in an Organized Health Care Education/Training Program
DX: E03.9 Hypothyroidism, unspecified (principal); M81.0 Age-related osteoporosis without current pathological fracture
CPT/HCPCS: 36415; 82306; 82040; 82310; 82565; 83970; 84443

== ENCOUNTER → 2022-07-03 10:09 | Outpatient (BNVA) | payer MEDICARE, SELFPAY | PROVIDERS: PCP Nurse Practitioner Family; Referring Provider Nurse Practitioner Family; Visit Provider Psychiatry & Neurology Neurology | DX: G20 Parkinson's disease (principal); G25.81 Restless legs syndrome; R13.10 Dysphagia, unspecified; R41.3 Other amnesia; F41.9 Anxiety disorder, unspecified; F32.A Depression, unspecified; N32.81 Overactive bladder | CPT/HCPCS: 99214 ==

== ENCOUNTER → 2022-07-18 02:19 | Outpatient (CLI) | payer MEDICARE, SELFPAY ==
--- NOTE | 2022-07-18 07:00 | DI.RAD_ITS ---
Exam(s) RF MODIFIED SPEECH BA SWALLOW TECHNIQUE: Modified barium swallow was performed in conjunction with speech pathology. CONTRAST MATERIAL: Oral barium contrast was administered. COMPARISON: No exams were available for comparison FINDINGS: Note that this is not a dedicated esophagram, distal esophagus not evaluated. There is no evidence of aspiration of thick or thin liquids, barium pudding, or barium coated cookies . Speech pathology report to follow. The patient swallowed a barium tablet without difficulty. IMPRESSION: No evidence of aspiration. Please refer to the speech pathology report for complete details. RADIATION DOSE DELIVERED: sheila King=10.4 mGy
--- NOTE | 2022-07-18 10:30 | ST.MBS ---
Date of Service Date of service: 07/18/22 Time of Service: 10:30 Modified Barium Swallow Study Findings: Video fluoroscopic Swallowing Evaluation (VFSE) / Modified Barium Swallow Study (MBSS) Speech Language Pathology Report Patient referred for VFSE/MBSS from Dr. Jefferson given suspected dysphagia in context of Parkinson's Disease. HPI & Patient report of function: Ms. Coelho is a 77-year-old woman with Parkinsons, anxiety, mitral valve disease, hypothyroidism, osteoporosis, scoliosis, osteoarthritis, referred for voice and swallowing evaluation from Dr Jefferson given dysphagia, hypophonia, cogntive deficits secondary to Medical Diagnosis of Parkinson?s Disease. ? Treatment Diagnosis:? Dysphonia/Hypophonia,? Hypokinetic Dysarthria,? Oropharyngeal Dysphagia? ? ? #1. Parkinsons. Ms. Coelho was diagnosed with Parkinson's disease in Nov 2015 with a several history of right hand tremor and 1 year history of left arm resting tremor.? She has a family history of Parkinson's in a brother who was also exposed to agent orange, a maternal uncle, and possibly a paternal cousin (unclear diagnosis).? She was started on Sinemet in July 2016 at 25/100 mg 3 times daily but this was discontinued due to fatigue and somnolence.? She was on pramipexole beginning in July 2017 through October 2018 at 0.5 mg 3 times daily, at which time she was switched back to Sinemet with excellent benefit and no side effects. Initial clinical swallow evaluation with treating [employer] revealed: Suspected oropharyngeal dysphagia per clinical swallowing evaluation today, as characterized by overt s/sx aspiration wet/gurgly vocal quality, difficulty swallowing pills, suspicion of pharyngeal residue. Patient endorses dysphagia symptoms, pharyngeal stasis, finds using a straw helpful for swallowing, she needs to use applesauce to take larger pills successfully, and reports a diligent oral care routine. IMPRESSIONS: Swallow safety is preserved; swallow efficiency is impaired. Overall swallow function appears safe, Mild chronic oropharyngoesophageal dysphagia. , There was slow transit of barium tablet through UES and just below it, and stasis of the tablet in distal esophagus which was not helped with liquid wash. Despite good hyo-laryngeal range of motion and relatively timely initiation, overall rate of superior/anterior movement was slow, with delayed and mild reduced epiglottic inversion likely contributing to mild-mod vallecular residue including with liquids. Reduced oral clearance & organization also resulted in oral residue across consistencies and likely to lead to post-swallow pooling of oral residue in the pharynx. No penetration or aspiration observed across trials under fluoroscopy this date. Patient appears to be at low risk for potential aspiration PNA and/or pulmonary compromise and low risk for malnutrition, low risk for dehydration. Diet modification is[ not] indicated; non-oral nutrition is[ not] indicated. Swallow prognosis is fair/guarded Positive prognostic factors: Severity, Family/caregiver support, Negative prognostic factors: Cognitive status, Progressive nature of neurologic etiology and pending patient/caregiver training in risk management as outlined, including use of trialed compensatory strategies. Patient appears to be a good candidate for behavioral swallow rehabilitation. Ancillary tests: May consider EGD/Upper GI Endoscopy, Upper GI series/UGI Barium Esophagram, and/or High Resolution Esophageal Manometry . RECOMMENDATIONS: Diet Texture Recommendation:? IDDSI LEVEL SOLIDS 7-Regular/Easy to Chew Solids OR 6-Soft & Bite-Sized Solids or as tolerated by patient LIQUIDS 0-Thin Liquids Please see further details at?[email or web address] MEDICATIONS Whole or cut (for large pills), As tolerated with puree or thin liquid Diet texture modification is per patient's preference; please adjust diet textures at patient's discretion & collaboration with care team. Do not alter medications (e.g., cut)? without advice from your MD or pharmacist. Risk Management Strategies:? Behavioral reflux precautions, including upright position during + 90 mins after meals. Small bites, approx [id number] Small sips, approx 10 mL Alternate solids/liquids as able Multiple swallows per bolus to encourage clearance of oral and pharyngeal stasis/residue Control risk factors for aspiration pneumonia via (a) thorough oral hygiene & (b) maintaining physical mobility as tolerated PLAN: Therapy: Recommend subsequent outpatient session with [employer] to review results of today's exam and develop treatment plan as appropriate. May consider the following: Targeted Oropharyngeal Exercise per treating [employer] Further Compensatory Strategy Training Further Training/Education in Risk Management Training in RMST Program Further Counseling re: Options for maintaining quality of life in context of dysphagia presentation Goals: Defer to treating clinician Follow-up exam: Recommend repeat VFSE/MBSS every 6 months for monitoring in context of Parkinson's Disease ----- OBJECTIVE Videofluoroscopic Swallow Evaluation (VFSE/MBSS) was conducted in the lateral projection by Speech-Language Pathologist, in collaboration with Radiologist, to evaluate oropharyngeal swallow function. Anatomic view under fluoroscopy: WFL except noting some hypertone/bulk of PUS/proximal esophagus PO Barium Contrast Trials Oral barium water-soluble contrast was administered as follows: IDDSI Level 0 Varibar thin liquid (40% w/v) IDDSI Level 2 Varibar nectar thick/mildly thick liquid (40% w/v) IDDSI Level 4 Varibar pudding/pureed/extremely thick (40% w/v) IDDSI Level 7 Regular Solid: 1/2 darin cracker coated in 3 mL Varibar pudding 13 mm barium tablet taken with Thin Liquids. MBSImP Component Scores: COMPONENT Scale SCORE 1 Lip closure (0-4) 1 Resulted in interlabial escape, without progression to anterior lip 2 Hold Position (0-3) 1 Allowed bolus escape to lateral buccal cavity/floor of mouth 3 Bolus Preparation (0-4) 0 Resulted in timely and efficient chewing and mashing 4 Bolus Transport (0-4) 2 Was with slowed tongue motion 5 Oral Residue (0-4) 2 Was a collection on oral structures 6 Swallow Initiation (0-4) 3 Occurred when the bolus head was in the pyriform sinuses 7 Soft Palate Elevation (0-4) 0 Resulted in no bolus between soft palate and the pharyngeal wall 8 Laryngeal Elevation (0-3) 1 Was decreased with partial superior movement of thyroid cartilage/partial approximation of arytenoids to epiglottic petiole 9 Anterior Hyoid Motion (0-2) 0 Demonstrated complete anterior movement 10 Epiglottic Movement (0-2) 1 Resulted in partial inversion 11 Laryngeal Closure (0-2) 0 Was complete with no air or contrast in laryngeal vestibule 12 Pharyngeal Stripping Wave (0-2) 0 Was present and complete 13 Pharyngeal Contraction (0-3) NA 14 PES Opening (0-3) 1 Demonstrated partial distension/partial duration, with partial obstruction of flow 15 Tongue Base Retraction (0-4) 1 Allowed a trace column of contrast or air between tongue base and pharyngeal wall 16 Pharyngeal Residue (0-4) 2 Was a collection of residue within or on pharyngeal structures 17 Esophageal Clearance (0-4) 1 Resulted in esophageal retention Results: COMPONENT Scale SCORE 1 Oral Score (0-18) 8 2 Pharyngeal Score (0-29) 5 3 Esophageal Score (0-4) 1 Dysphagia Outcome and Severity Scale: COMPONENT Scale SCORE 1 LEVEL (1-7) 6 Full PO: Normal Diet - Within functional limits/modified independence Penetration-Aspiration Scale: COMPONENT Scale SCORE 1 Thin liquid (1-8) 1 Contrast did not enter the airway 2 [place] thick (1-8) 1 Contrast did not enter the airway 3 Honey thick (1-8) NA 4 Pudding thick (1-8) 1 Contrast did not enter the airway 5 Cookie (1-8) 1 Contrast did not enter the airway Trialed Compensatory Strategies & Outcome: Maneuvers Successful (+) Unsuccessful (-) Postures Successful (+) Unsuccessful (-) 3 second Preparatory Set? ? +/- Chin Tuck Posture? ? Cough? ? Posterior Head tilt? Reflexive? Cued? Throat Clear? ? Head Tilt to? Reflexive? Left? Cued? Right? ? Saliva swallow? ? + Head Turn/Rotate to? ? Supraglottic Swallow? Left? ? Super-supraglottic Swallow? Right? ? Bolus Modifications Successful (+) Unsuccessful (-) Delivery/Alternating Consistencies ? Follow with Liquid Wash - ? Follow with Solid Bolus? Delivery/Via Straw? ? Reduced Volume? ? + to reduce oral residue Reduced Rate of Intake? ? Increased Viscosity? ? +/- Other:?? ? Thank you for allowing us to take part in this patient's care. Please feel free to contact the [facility] Speech Language Pathology Department with any questions/concerns. Coding CPT Codes MOTION FLUOROSCOPY/SWALLOW - [id number] ([id number])
[2022-07-18] MEDS: Barium Sulfate 700 MG TAB PO (11:45)
[2022-07-18] MEDS: Barium Sulfate Oral Paste 40% W/V 230 ML TUBE 13 ML PO (11:48)
[2022-07-18] MEDS: Barium Sulfate 40% W/V 240 ML BTL 80 ML PO (11:49)
== END ==
PROVIDERS: PCP Nurse Practitioner Family; Visit Provider Psychiatry & Neurology Neurology
DX: G20 Parkinson's disease (principal); R13.10 Dysphagia, unspecified
CPT/HCPCS: 74221

== ENCOUNTER 2022-08-29 16:28 | Outpatient (CLI) | payer MEDICARE, SELFPAY ==
[2022-09-01 12:33] LABS: TB Interpretation Negative (Negative)
== END 2022-08-29 16:29 | disposition home or self-care (01) ==
LOC: LBO 16:29
PROVIDERS: PCP Nurse Practitioner Family; Visit Provider Nurse Practitioner Family
DX: Z11.1 Encounter for screening for respiratory tuberculosis (principal)
CPT/HCPCS: 36415; 86480

== ENCOUNTER → 2022-09-05 10:18 | Outpatient (BNVA) | payer MEDICARE, SELFPAY | PROVIDERS: PCP Nurse Practitioner Family; Referring Provider Nurse Practitioner Family; Visit Provider Psychiatry & Neurology Neurology | DX: G20 Parkinson's disease (principal); G25.81 Restless legs syndrome; R13.10 Dysphagia, unspecified; R41.3 Other amnesia; M41.9 Scoliosis, unspecified; F32.A Depression, unspecified; N32.81 Overactive bladder; S06.0X0A Concussion without loss of consciousness, initial encounter; W19.XXXA Unspecified fall, initial encounter | CPT/HCPCS: 99215 ==

== ENCOUNTER 2022-09-18 13:58 | Outpatient (REF) | payer MEDICARE, SELFPAY ==
[2022-09-20 11:03] LABS: COVID-19 RT-PCR UVMMC Result Negative (Negative)
== END 2022-09-18 13:59 | disposition home or self-care (01) ==
LOC: LBN 13:58
PROVIDERS: PCP Nurse Practitioner Family; Visit Provider Nurse Practitioner Family
DX: Z20.822 Contact with and (suspected) exposure to COVID-19 (principal)
CPT/HCPCS: U0003